=== PATIENT | male | born 1965 | race Caucasian/White ===

== ENCOUNTER 2021-07-16 10:39 | Emergency (ER) | payer MEDICAID ==
[~2021-07-16] VITALS: Ht 177.8 cm; Wt 111.4 kg
[2021-07-16] MEDS ORDERED: traMADol 50 MG TABLET PO ONE (11:30)
--- NOTE | 2021-07-16 11:54 | RAD ---
XR KNEE 4 VIEWS WITH PATELLA_RT Clinical Indication: Reason: fall last night / Spl. Instructions: / History: Comparison: None. Findings: No acute fracture is seen. There is moderate arthropathy. There is probably trace joint effusion. The re is mild prepatellar soft tissue swelling. The patella is in anatomic position. No patellar tilt or subluxation is seen. Mild arterial calcifications. IMPRESSION: 1. No acute fracture. 2. Soft tissue injury. Electronically signed by: Tor Valadez MD (07/16/2021 11:52 AM) [id number]
--- NOTE | 2021-07-16 12:12 | PHYS DOC ---
Past Medical History Past Medical History: Arthritis, Gallstones Additional Past Medical Histor: neuropathy, torn retina left eye Past Surgical History: Knee Replacement Additional Past Surgical Histo: left 4th toe tendon removal General Adult EDM: Chief Complaint: KNEE INJURY HPI: HPI: Patient is a 55 year old male who presents with right knee pain status post fall last evening. Patient normally ambulates with a cane after his left knee was replaced. He states that yesterday he experienced a mechanical fall onto his right knee, and experienced significant pain when he was attempting to get up. Patient states at that time, he "twisted" his knee. He states that while he is supposed to use his cane, it's usually "thrown on the corner somewhere." Patient denies any other injury or other complaints at this time. Review of Systems: Review of Systems: ROS negative or noncontributory except as mentioned in HPI. Heart Score: C/O Chest Pain: No Current Medications: Current Medications Medications (Trade) Dose Ordered Sig/Norma Start Time Stop Time Status Last Admin Dose Admin Tramadol HCl (Ultram) 50 mg 1X ONCE 07/16/21 11:30 07/16/21 11:35 DC 07/16/21 11:51 50 MG Allergies: Allergies: Allergies Coded Allergies Type Severity Reaction Last Updated Verified No Known Drug Allergies 07/16/21 No Physical Exam: PE: Constitutional: Well developed, well nourished, no acute distress, non-toxic appearance. HENT: Normocephalic, atraumatic, bilateral external ears normal, nose normal. Eyes: EOMI, conjunctiva normal, no discharge. Neck: Normal range of motion, no stridor. Skin: Abrasion over patellar region of right knee without laceration, stasis d ermatitis rash noted over bilateral distal lower extremities. Skin otherwise warm, dry, no erythema, no rash. Extremities: Right knee tender to palpation over the medial aspect and over the patella, no ballottement, active range of motion intact, PT pulses 2+ bilaterally. Extremities otherwise nontender, no cyanosis, no clubbing, ROM intact. Neurologic: Alert and oriented x4, no focal deficits noted. Current Patient Data: Vital Signs: Vital Signs Date Time Temp Pulse Resp B/P (MAP) Pulse Ox O2 Delivery O2 Flow Rate FiO2 07/16/21 12:18 78 18 196/112 (140) 98 Room Air 07/16/21 11:51 18 98 Room Air 07/16/21 11:06 98.1 80 20 238/111 (153) 99 Room Air 98.1 Radiology/Procedures: Radiology/Procedures: PROCEDURE: KNEE RIGHT 4V XR KNEE 4 VIEWS WITH PATELLA_RT Clinical Indication: Reason: fall last night / Spl. Instructions: / History: Comparison: None. Findings: No acute fracture is seen. There is moderate arthropathy. There is probably trace joint effusion. There is mild prepatellar soft tissue swelling. The patella is in anatomic position. No patellar tilt or subluxation is seen. Mild arterial calcifications. IMPRESSION: 1. No acute fracture. 2. Soft tissue injury. Electronically signed by: Tor Valadez MD (07/16/2021 11:52 AM) [id number] Course & Med Decision Making: Course & Med Decision Making Pertinent Labs and Imaging studies reviewed. (See chart for details) Patient is a 55-year-old male with known history of bilateral arthritis of the knees. Last night, he states he fell onto his right knee and experienced significant pain while getting up. Plain films will be obtained. Patient provided with p.o. pain medication. Initially, exam was difficult secondary to pain. Reexamined patient after tramadol administration. See above for physical exam. No fracture or dislocation seen on plain films. Patient made aware of findings. He states he does not currently have contact with an orthopedist. Patient will be provided for contact information for further evaluation and management for possible connective tissue injury of the knee. Return precautions provided. Patient understands and is agreeable to discharge plan. Thierry Disclaimer: Thierry Disclaimer: This electronic medical record was generated, in whole or in part, using a voice recognition dictation system. Departure Departure Impression: Primary Impression: Contusion of right knee, initial encounter Additional Impressions: Degenerative arthritis of knee, bilateral Qualified Codes: M17.0 - Bilateral primary osteoarthritis of knee Benign essential hypertension Disposition: 01 HOME / SELF CARE / HOMELESS Condition: IMPROVED Referrals: NO PCP (PCP) GISELLE GALLEGOS MD Patient Instructions: Arthritis, Nonspecific, [id number], Managing Your High Blood Pressure, RICE - Routine Care for Injuries, [id number] Additional Instructions: EMERGENCY DEPARTMENT GENERAL DISCHARGE INSTRUCTIONS Thank you for coming to [facility] Emergency Department (ED) today and trusting us with you care. We trust that you had a positive experience in our Emergency Department. If you wish to speak to the department management, you may call the director at . YOUR FOLLOW UP INSTRUCTIONS ARE FOLLOWS: 1. Follow up with your primary care doctor. If you do not have a primary doctor, please ask for a resource list of physicians or clinics that may be able to assist you with follow up care. You should keep a blood pressure log to take with you to your next appointment. 2. The emergency provider has interpreted your imaging studies, if any were ordered. The radiology web analytics specialist also reviewed them. If there is a change in the findings, you will be notified in 48 hours when at all possible. 3. If a lab test or culture has been done, your results will be reviewed and you will be notified if you need a change in treatment. 4. Follow instructions verbalized to you and refer to the printouts if needed. ADDITIONAL INSTRUCTIONS AND INFORMATION: 1. Your care today has been supervised by a physician who is specially trained in emergency care. Many problems require more than one evaluation for a complete diagnosis and treatment. We recommend that you schedule your follow up appointment as recommended to ensure complete treatment of you illness or inju ry. If you are unable to obtain follow up care and continue to have a problem, or if your condition worsens, we recommend that you return to the ED. 2. We are not able to safely determine your condition over the phone nor are we able to give sound medical advice over the phone. For these safety reasons, if you call for medical advice we will ask you to come to the ED for further evaluation. 3. If you have any questions regarding these discharge instructions please call the ED at . SAFETY INFORMATION: In the interest of safety, wellness, and injury prevention; we encourage you to wear your seat belt, if you smoke; quite smoking, and we encourage family to use a protective helmet for bicycling and other sporting events that present an increased risk for head injury. IF YOUR SYMPTOMS WORSEN OR NEW SYMPTOMS DEVELOP, OR YOU HAVE CONCERNS ABOUT YOUR CONDITION; OR IF YOUR CONDITION WORSENS WHILE YOU ARE WAITING FOR YOUR FOLLOW UP APPOINTMENT; EITHER CONTACT YOUR PRIMARY CARE DOCTOR, THE PHYSICIAN WHOSE NAME AND NUMBER YOU WERE GIVEN, OR RETURN TO THE ED IMMEDIATELY. Scripts Tramadol Hcl (TRAMADOL HCL) 50 Mg Tablet 50 MG PO Q6HRS PRN for PAIN, #12 TAB Prov: DIONE IRELAND 07/16/21 DIONE IRELAND Jul 16, 2021 12:12
[2021-07-16 12:18] VITALS: BP 196/112
[2021-07-16] MEDS ORDERED: TRAM50TA PO (12:33)
== END 2021-07-16 12:51 | disposition home or self-care (01) ==
LOC: ER 10:39
DX: S80.01XA Contusion of right knee, initial encounter (principal); I10 Essential (primary) hypertension; M17.0 Bilateral primary osteoarthritis of knee; W18.39XA Other fall on same level, initial encounter; Y93.89 Activity, other specified; Y92.89 Other specified places as the place of occurrence of the external cause; Y99.8 Other external cause status
CPT/HCPCS: 73564; 99283

== ENCOUNTER 2021-08-02 11:35 | Inpatient (IN) | payer MEDICAID ==
[~2021-08-02] VITALS: Ht 180.3 cm; Wt 117.1 kg
[~2021-08-02 11:35] MED LIST: TRAM50TA PO
[2021-08-02] MEDS ORDERED: IV NORMAL SALINE 1000ML BAG 1,000 ML IV ONE ×3 (11:45→14:15)
[2021-08-02 11:59] LABS: BASO # 0.1 x10^3/uL (0.0-0.2); BASO % 1 % (0-3); EOS # 0.3 x10^3/uL (0.0-0.7); EOS % 3 % (0-3); HEMOGLOBIN 13.3 g/dL (13.0-17.5); LYMPH # 0.9 x10^3/uL (1.0-4.8); LYMPH % 10 % (24-48); MEAN CORPUSCULAR HEMOGLOBIN 31 pg (25-35); MEAN CORPUSCULAR HGB CONC 34 g/dL (31-37); MEAN CORPUSCULAR VOLUME 92 fL (79-100); MONO # 0.4 x10^3/uL (0.0-1.1); MONO % 5 % (0-9); NEUT # 7.3 x10^3/uL (1.8-7.7); NEUT % 81 % (31-73); PLATELET COUNT 240 x10^3/uL (140-400); RED BLOOD COUNT 4.25 x10^6/uL (4.30-5.70); RED CELL DISTRIBUTION WIDTH 13.9 % (11.5-14.5); WHITE BLOOD COUNT 8.9 x10^3/uL (4.0-11.0)
[2021-08-02] MEDS ORDERED: IOHEXOL 300 MG/ML 100ML VIAL. IV ONE (12:00)
[2021-08-02 12:14] LABS: ALBUMIN 3.8 g/dL (3.4-5.0); ALBUMIN/GLOBULIN RATIO 1.1 (1.0-1.7); CALCIUM 8.9 mg/dL (8.5-10.1); CREATININE 1.3 mg/dL (0.7-1.3); GFR 57.3; PHOSPHORUS 3.2 mg/dL (2.6-4.7); POTASSIUM 5.4 mmol/L (3.5-5.1); TOTAL PROTEIN 7.4 g/dL (6.4-8.2)
[2021-08-02] MEDS ORDERED: fentaNYL PF VIAL 100 MCG/2 ML VIAL IVP ONE (12:15)
[2021-08-02] MEDS ORDERED: ONDANSETRON PF 4 MG/2 ML VIAL. IVP ONE (12:15)
[2021-08-02] MEDS ORDERED: CONTRAST GIVEN. MC PRN (12:15)
--- NOTE | 2021-08-02 13:16 | RAD ---
EXAM: CT Abdomen and Pelvis with IV contrast CLINICAL HISTORY: Reason: RLQ pain / Spl. Instructions: OMNI 300 INJ. 60 MLS / History: . COMPARISON: none TECHNIQUE: Helical CT of the abdomen and pelvis was performed following the administration of intrave nous contrast. Contrast Axial, coronal and sagittal reformatted images were generated. PQRS compliance statement - One or more of the following individualized dose reduction techniques wer e utilized for this study: 1. Automated exposure control 2. Adjustment of the mA and/or kV according to patient size 3. Use of iterative reconstruction technique FINDINGS: The evaluation of the solid organs is limited due to lack of IV contrast. The evaluation of bowel is limited due to lack of oral contrast. Lower Chest: Visualized lung bases are clear. Significant coronary artery atherosclerotic disease. Heart size is w ithin normal limits. Trace peripheral effusion. Abdomen and Pelvis: Liver is normal in size and attenuation without focal hepatic lesion. There appears to be vicarious e xcretion of contrast within the gallbladder. No significant biliary ductal dilation. The spleen and p ancreas are unremarkable. Right adrenal gland is normal. 1.6 cm hypoattenuating nodule in the left ad renal gland. Hypoattenuating 1.4 cm nodule in the interpolar region of the right kidney with attenuat ion greater than that of simple fluid. Additional subcentimeter hypoattenuating lesions in bilateral kidneys are too small to characterize. No obstructing nephro or ureterolithiasis. The right kidney ap pears slightly edematous with mild pelvocaliectasis. There is minimal asymmetric perinephric on the r ight. Stomach is unremarkable. No evidence of bowel obstruction or focal inflammation. Appendix is normal. Mild to moderate colorectal stool burden. Aortobiiliac atherosclerotic disease. No pathologically enlarged abdominal or pelvic adenopathy. No f ree intra-abdominal air or free fluid. Urinary bladder is mildly distended without focal inflammation. Prostate is unremarkable. Anterior abdominal wall is normal. Multilevel degenerative changes of the thoracolumbar spine no acut e or suspicious osseous abnormalities. IMPRESSION: 1. Findings suggestive of possible ascending urinary tract infection versus pyelonephritis involving the right kidney. No evidence of obstructing urolithiasis. Correlation with urinalysis is recommended . 2. Variable sized hypoattenuating renal lesions favoring mildly complicated cysts. Correlation with p rior imaging if available to assess stability. If none is available then follow-up nonemergent renal ultrasound in 3-6 months. 3. 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 Correlation with prior imaging to assess stability is recomm ended. If no prior imaging is available then follow-up with nonemergent CT or MRI with adrenal gland protocol. 4. Other chronic/incidental findings, as above. Electronically signed by: Bruno Meza DO (08/02/2021 1:14 PM) [facility]
[2021-08-02 13:48] LABS: BACTERIA,URINE MODERATE /HPF (0-FEW); WBC,URINE 20-40 /HPF (0-4)
[2021-08-02 13:49] LABS: YEAST,URINE PRESENT /HPF
[2021-08-02] MEDS ORDERED: cefTRIAXone IV Push 1 GM VIAL. IVP ONE (14:30)
[2021-08-02] MEDS ORDERED: INSULIN REGULAR 100 UNIT/ML 3ML VIAL. IV ONE (14:45)
[2021-08-02] MEDS ORDERED: MORPHINE SULFATE 4 MG/ML INJ. IV ONE (14:45)
--- NOTE | 2021-08-02 15:29 | ED.ADGEN ---
Past Medical History Past Medical History: Arthritis, Gallstones Additional Past Medical Histor: neuropathy, torn retina left eye Past Surgical History: Knee Replacement Additional Past Surgical Histo: left 4th toe tendon removal General Adult EDM: Chief Complaint: ABDOMINAL PAIN HPI: HPI: Patient is a 55 year old male coming in for right lower quadrant abdominal pain. Patient states the pain is been there for about a day. Also his blood sugars been running high. Patient states that he has a history of diabetes and takes Metformin, states his blood sugars usually run between 180 and 200. Denies a history of kidney stones in the past, denies any hematuria dysuria. Says the pain is in his right lower quadrant is always dull but intermittently sharp and radiates to his right flank. He said he had a subjective fever yesterday. Review of Systems: Review of Systems: All other systems within normal limits except for as noted in the HPI Current Medications: Current Medications Medications (Trade) Dose Ordered Sig/Norma Start Time Stop Time Status Last Admin Dose Admin Ceftriaxone Sodium (Rocephin) 2 gm 1X ONCE 08/02/21 14:30 08/02/21 14:31 DC 08/02/21 14:55 2 GM Fentanyl Citrate (Fentanyl 2ml Vial) 75 mcg 1X ONCE 08/02/21 12:15 08/02/21 12:16 DC 08/02/21 11:54 75 MCG Info (CONTRAST GIVEN -- Rx MONITORING) 1 each PRN DAILY PRN 08/02/21 12:15 08/04/21 12:14 Insulin Human Regular (HumuLIN R VIAL) 5 unit 1X ONCE 08/02/21 14:45 08/02/21 14:46 DC 08/02/21 14:55 5 UNIT Iohexol (Omnipaque 300 Mg/ml) 75 ml 1X ONCE 08/02/21 12:00 08/02/21 12:01 DC 08/02/21 12:40 75 ML Morphine Sulfate (Morphine Sulfate) 4 mg 1X ONCE 08/02/21 14:45 08/02/21 14:46 DC 08/02/21 14:53 4 MG Ondansetron HCl (Zofran) 4 mg 1X ONCE 08/02/21 12:15 08/02/21 12:16 DC 08/02/21 11:56 4 MG Sodium Chloride 1,000 ml @ 1,000 mls/hr 1X ONCE 08/02/21 14:15 08/02/21 15:14 DC Allergies: Allergies: Allergies Coded Allergies Type Severity Reaction Last Updated Verified No Known Drug Allergies 07/16/21 No Physical Exam: PE: Constitutional: Well developed, well nourished, no acute distress, non-toxic appearance. [] HENT: Normocephalic, atraumatic, bilateral external ears normal, nose normal. [] Eyes: PERRLA, conjunctiva normal, no discharge. [] Neck: No rigidity, supple, no stridor. [] Cardiovascular: Regular rate and rhythm, brisk cap refill [] Lungs & Thorax: Non labored symmetric respirations, no tachypnea or respiratory distress [] Abdomen: Soft, nondistended, positive Rovsing's, negative Butler's, right lower quadrant McBurney's point tenderness Skin: Warm, dry, no erythema, no rash. [] Back: Unremarkable, right CVA tenderness, spinal tenderness Extremities: No deformities, range of motion grossly intact, no lower extremity edema [] Neurologic: Alert and oriented X 3, no focal deficits noted. [] Psychologic: Affect normal, judgement normal, mood normal. [] Current Patient Data: Labs: Laboratory Tests Test 08/02/21 11:45 08/02/21 13:05 White Blood Count 8.9 x10^3/uL (4.0-11.0) Red Blood Count 4.25 x10^6/uL (4.30-5.70) L Hemoglobin 13.3 g/dL (13.0-17.5) Hematocrit 39.0 % (39.0-53.0) Mean Corpuscular Volume 92 fL (79-100) Mean Corpuscular Hemoglobin 31 pg (25-35) Mean Corpuscular Hemoglobin Concent 34 g/dL (31-37) Red Cell Distribution Width 13.9 % (11.5-14.5) Platelet Count 240 x10^3/uL (140-400) Neutrophils (%) (Auto) 81 % (31-73) H Lymphocytes (%) (Auto) 10 % (24-48) L Monocytes (%) (Auto) 5 % (0-9) Eosinophils (%) (Auto) 3 % (0-3) Basophils (%) (Auto) 1 % (0-3) Neutrophils # (Auto) 7.3 x10^3/uL (1.8-7.7) Lymphocytes # (Auto) 0.9 x10^3/uL (1.0-4.8) L Monocytes # (Auto) 0.4 x10^3/uL (0.0-1.1) Eosinophils # (Auto) 0.3 x10^3/uL (0.0-0.7) Basophils # (Auto) 0.1 x10^3/uL (0.0-0.2) Sodium Level 129 mmol/L (136-145) L Potassium Level 5.4 mmol/L (3.5-5.1) H Chloride Level 94 mmol/L (98-107) L Carbon Dioxide Level 28 mmol/L (21-32) Anion Gap 7 (6-14) Blood Urea Nitrogen 24 mg/dL (8-26) Creatinine 1.3 mg/dL (0.7-1.3) Estimated GFR (Cockcroft-Gault) 57.3 BUN/Creatinine Ratio 18 (6-20) Glucose Level 725 mg/dL (70-99) *H Calcium Level 8.9 mg/dL (8.5-10.1) Phosphorus Level 3.2 mg/dL (2.6-4.7) Magnesium Level 2.0 mg/dL (1.8-2.4) Total Bilirubin 1.0 mg/dL (0.2-1.0) Aspartate Amino Transferase (AST) 8 U/L (15-37) L Alanine Aminotransferase (ALT) 23 U/L (16-63) Alkaline Phosphatase 103 U/L (46-116) Total Protein 7.4 g/dL (6.4-8.2) Albumin 3.8 g/dL (3.4-5.0) Albumin/Globulin Ratio 1.1 (1.0-1.7) Lipase 130 U/L (73-393) Urine Collection Type Unknown Urine Color (Auto) Light yellow Urine Turbidity Clear Urine pH (Auto) 7.0 (<5.0-8.0) Urine Specific [place] 1.027 (1.000-1.030) Urine Protein (Auto) 50 mg/dL (Negative) Urine Glucose (Auto)(UA) >=1000 mg/dL (Negative) Urine Ketones (Auto) Negative mg/dL (Negative) Urine Blood (Auto) Trace (Negative) Urine Nitrite Negative (Negative) Urine Bilirubin (Auto) Negative (Negative) Urine Urobilinogen (Auto) Normal mg/dL (Normal) Urine Leukocyte Esterase (Auto) Small (Negative) Urine RBC 1-2 /HPF (0-2) Urine WBC 20-40 /HPF (0-4) Urine Squamous Epithelial Cells Few /LPF Urine Bacteria Moderate /HPF (0-FEW) Urine Yeast Present /HPF Laboratory Tests 08/02/21 11:45 Laboratory Tests 08/02/21 11:45 Vital Signs: Vital Signs Date Time Temp Pulse Resp B/P (MAP) Pulse Ox O2 Delivery O2 Flow Rate FiO2 08/02/21 14:53 18 99 Room Air 08/02/21 11:35 98.2 82 245/116 (159) 98.2 EKG: EKG: [] Heart Score: C/O Chest Pain: No Risk Factors: Risk Factors: DM, Current or recent (<one month) smoker, HTN, HLP, family history of CAD, obesity. Risk Scores: Score 0 - 3: 2.5% MACE over next 6 weeks - Discharge Home Score 4 - 6: 20.3% MACE over next 6 weeks - Admit for Clinical Observation Score 7 - 10: 72.7% MACE over next 6 weeks - Early Invasive Strategies Radiology/Procedures: Radiology/Procedures: [facility] [address] [place] [address] IMAGING REPORT Signed PATIENT: Hua ADAME ACCOUNT: [id number] : 1965 LOCATION: ER AGE: 55 SEX: M EXAM STATUS: PRE ER ORD. PHYSICIAN: PALAK FERNANDEZ MD REASON: RLQ pain PROCEDURE: CT ABD PELV W/ IV CONTRST ONLY EXAM: CT Abdomen and Pelvis with IV contrast CLINICAL HISTORY: Reason: RLQ pain / Spl. Instructions: OMNI 300 INJ. 60 MLS / History: . COMPARISON: none TECHNIQUE: Helical CT of the abdomen and pelvis was performed following the administration of intravenous contrast. Contrast Axial, coronal and sagittal reformatted images were generated. PQRS compliance statement - One or more of the following individualized dose reduction techniques were utilized for this study: 1. Automated exposure control 2. Adjustment of the mA and/or kV according to patient size 3. Use of iterative reconstruction technique FINDINGS: The evaluation of the solid organs is limited due to lack of IV contrast. The evaluation of bowel is limited due to lack of oral contrast. Lower Chest: Visualized lung bases are clear. Significant coronary artery atherosclerotic disease. Heart size is within normal limits. Trace peripheral effusion. Abdomen and Pelvis: Liver is normal in size and attenuation without focal hepatic lesion. There appears to be vicarious excretion of contrast within the gallbladder. No significant biliary ductal dilation. The spleen and pancreas are unremarkable. Right adrenal gland is normal. 1.6 cm hypoattenuating nodule in the left adrenal gland. Hypoattenuating 1.4 cm nodule in the interpolar region of the right kidney with attenuation greater than that of simple fluid. Additional subcentimeter hypoattenuating lesions in bilateral kidneys are too small to characterize. No obstructing nephro or ureterolithiasis. The right kidney appears slightly edematous with mild pelvocaliectasis. There is minimal asymmetric perinephric on the right. Stomach is unremarkable. No evidence of bowel obstruction or focal inflammation. Appendix is normal. Mild to moderate colorectal stool burden. Aortobiiliac atherosclerotic disease. No pathologically enlarged abdominal or pelvic adenopathy. No free intra-abdominal air or free fluid. Urinary bladder is mildly distended without focal inflammation. Prostate is unremarkable. Anterior abdominal wall is normal. Multilevel degenerative changes of the thoracolumbar spine no acute or suspicious osseous abnormalities. IMPRESSION: 1. Findings suggestive of possible ascending urinary tract infection versus py elonephritis involving the right kidney. No evidence of obstructing urolithiasis. Correlation with urinalysis is recommended. 2. Variable sized hypoattenuating renal lesions favoring mildly complicated cysts. Correlation with prior imaging if available to assess stability. If none is available then follow-up nonemergent renal ultrasound in 3-6 months. 3. 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 Correlation with prior imaging to assess stability is recommended. If no prior imaging is available then follow-up with nonemergent CT or MRI with adrenal gland protocol. 4. Other chronic/incidental findings, as above. Electronically signed by: Patricio Meza DO (08/02/2021 1:14 PM) [facility] DICTATED and SIGNED BY: PATRICIO MEZA DO DATE: 08/02/21 1300 [] Course & Med Decision Making: Course & Med Decision Making Pertinent Labs and Imaging studies reviewed. (See chart for details) [] Dragon Disclaimer: Dragon Disclaimer: This electronic medical record was generated, in whole or in part, using a voice recognition dictation system. Departure Departure Impression: Primary Impression: Hyperglycemia due to type 2 diabetes mellitus Additional Impression: Pyelonephritis of right kidney Disposition: ADMITTED INPATIENT Admitting Physician: HIMS Condition: STABLE Referrals: NO PCP (PCP) Problem Qualifiers PALAK FERNANDEZ MD Aug 02, 2021 15:29
[2021-08-02] MEDS ORDERED: hydrALAZINE 20 MG/ML VIAL. IVP PRN (16:30)
[2021-08-02] MEDS ORDERED: fentaNYL PF VIAL 100 MCG/2 ML VIAL IVP PRN (16:30)
[2021-08-02] MEDS: INSULIN LISPRO 300 UNITS/3 ML VIAL. SQ SCH ×2 (16:30→17:00)
[2021-08-02] MEDS ORDERED: IV DEXTROSE 5% 250 ML BAG. IV PRN (16:30)
[2021-08-02] MEDS ORDERED: ONDANSETRON PF 4 MG/2 ML VIAL. IVP PRN (16:30)
[2021-08-02] MEDS ORDERED: DEXTROSE 50% 25 GM / 50ML DISP.SYRIN. IV PRN (16:30)
--- NOTE | 2021-08-02 16:40 | PDOC1 ---
History and Physical Date of Admission Date of Admission DATE: 08/02/21 TIME: 16:24 Identification/Chief Complaint Chief Complaint Abdominal pain Source Source: Patient History of Present Illness History of Present Illness Mr Carter is a 55 year old male w/ PMHx DM2, arthritis, A-Fib, HLD, HTN, neuropathy who comes to ED from [facility] c/o right lower back and right lower quadrant abdominal pain. He has had pain for the last day with polyuria and polydipsia. Denies a history of kidney stones in the past, denies any hematuria dysuria. Says the pain is in his right lower quadrant is always dull but intermittently sharp and radiates to his right flank. He said he had a subjective fever yesterday. He does note he had a right ureteral surgery as a child and he and his father have both had urinary tract infections occasionally over the lives. He does note his blood sugar and blood pressure have been running high over the last day as well. When he used to take insulin his blood sugars usually run between 180 and 200, used to take 35units lantus twice daily. He notes on outpatient follow-up he was told to stop taking insulin after his A1c returned at 11 and was placed on Metformin and Actos a few weeks ago. He notes he is in the process of trying to move to [place]. He used to receive most of his health care in [place] but has been traveling around the country recently. He moved to [place] to be with a woman and has been depressed after the break-up and is getting help with the [facility] [place] while he is working on transitioning to [place] to live with his cousin In ED blood pressure to be 203/110. WBC 8.9, Hb 13.3, platelets 240, NA 129, K5.4, BUN 24, CR 1.3, glucose 725 no anion gap, LFTs within normal laboratory limits, magnesium 2, phosphorus 3.2, albumin 3.8, lipase 130, urinalysis with glucosuria and leukocyte esterase positive. CT abdomen pelvis with concern for pyelonephritis right kidney no nephrolithiasis. Multiple renal lesions likely cysts and left adrenal nodule. Given IVF, antibiotics, insulin and admitted for further care. Past Medical History Cardiovascular: AFIB, HTN, Hyperlipidemia Endocrine: Diabetes Past Surgical History Past Surgical History Left Knee Replacement, right uretal surgery as a child, left 4th toe tendon removal Social History Smoke: No ALCOHOL: none Drugs: None Current Problem List Problem List Problems Medical Problems: (1) Hyperglycemia due to type 2 diabetes mellitus Status: Acute (2) Pyelonephritis of right kidney Status: Acute Current Medications Current Medications Current Medications Fentanyl Citrate (Fentanyl 2ml Vial) 75 mcg 1X ONCE IVP Last administered on 08/02/21at 11:54; Start 08/02/21 at 12:15; Stop 08/02/21 at 12:16; Status DC Sodium Chloride 1,000 ml @ 1,000 mls/hr 1X ONCE IV Last administered on 08/02/21at 11:45; Start 08/02/21 at 11:45; Stop 08/02/21 at 12:44; Status DC Ondansetron HCl (Zofran) 4 mg 1X ONCE IVP Last administered on 08/02/21at 11:56; Start 08/02/21 at 12:15; Stop 08/02/21 at 12:16; Status DC Iohexol (Omnipaque 300 Mg/ml) 75 ml 1X ONCE IV Last administered on 08/02/21at 12:40; Start 08/02/21 at 12:00; Stop 08/02/21 at 12:01; Status DC Info (CONTRAST GIVEN -- Rx MONITORING) 1 each PRN DAILY PRN MC SEE COMMENTS; Start 08/02/21 at 12:15; Stop 08/04/21 at 12:14 Ceftriaxone Sodium (Rocephin) 2 gm 1X ONCE IVP Last administered on 08/02/21at 14:55; Start 08/02/21 at 14:30; Stop 08/02/21 at 14:31; Status DC Sodium Chloride 1,000 ml @ 1,000 mls/hr 1X ONCE IV Last administered on 08/02/21at 14:52; Start 08/02/21 at 14:15; Stop 08/02/21 at 15:14; Status DC Sodium Chloride 1,000 ml @ 1,000 mls/hr 1X ONCE IV ; Start 08/02/21 at 14:15; Stop 08/02/21 at 15:14; Status DC Morphine Sulfate (Morphine Sulfate) 4 mg 1X ONCE IV Last administered on 08/02/21at 14:53; Start 08/02/21 at 14:45; Stop 08/02/21 at 14:46; Status DC Insulin Human Regular (HumuLIN R VIAL) 5 unit 1X ONCE IV Last administered on 08/02/21at 14:55; Start 08/02/21 at 14:45; Stop 08/02/21 at 14:46; Status DC Active Scripts Active Tramadol Hcl 50 Mg Tablet 50 Mg PO Q6HRS PRN Allergies Allergies: Coded Allergies: No Known Drug Allergies (Unverified , 07/16/21) Physical Exam General: Alert, Oriented X3, Cooperative, moderate distress HEENT: Atraumatic, PERRLA, EOMI, Mucous membr. moist/pink Lungs: Clear to auscultation, Normal air movement Heart: S1S2, RRR, no thrills, no rubs, no gallops, no murmurs Abdomen: Normal bowel sounds, Soft, No hepatosplenomegaly, No masses, Other (Right flank tenderness and suprapubic tenderness) Rectal Exam: not examined Extremities: Other (4 by centimeter lipoma mid back slightly tender) Skin: No rashes, No breakdown, No significant lesion Neuro: Normal gait, Normal speech, Strength at 5/5 X4 ext, Normal tone, Cranial nerves 3-12 NL, Reflexes 2+ Psych/Mental Status: Mental status NL, Mood NL Vitals Vitals Vital Signs Date Time Temp Pulse Resp B/P (MAP) Pulse Ox O2 Delivery O2 Flow Rate FiO2 08/02/21 14:53 18 99 Room Air 08/02/21 11:35 98.2 82 245/116 (159) 98.2 Labs Labs Laboratory Tests Test 08/02/21 11:45 08/02/21 13:05 White Blood Count 8.9 x10^3/uL (4.0-11.0) Red Blood Count 4.25 x10^6/uL (4.30-5.70) Hemoglobin 13.3 g/dL (13.0-17.5) Hematocrit 39.0 % (39.0-53.0) Mean Corpuscular Volume 92 fL (79-100) Mean Corpuscular Hemoglobin 31 pg (25-35) Mean Corpuscular Hemoglobin Concent 34 g/dL (31-37) Red Cell Distribution Width 13.9 % (11.5-14.5) Platelet Count 240 x10^3/uL (140-400) Neutrophils (%) (Auto) 81 % (31-73) Lymphocytes (%) (Auto) 10 % (24-48) Monocytes (%) (Auto) 5 % (0-9) Eosinophils (%) (Auto) 3 % (0-3) Basophils (%) (Auto) 1 % (0-3) Neutrophils # (Auto) 7.3 x10^3/uL (1.8-7.7) Lymphocytes # (Auto) 0.9 x10^3/uL (1.0-4.8) Monocytes # (Auto) 0.4 x10^3/uL (0.0-1.1) Eosinophils # (Auto) 0.3 x10^3/uL (0.0-0.7) Basophils # (Auto) 0.1 x10^3/uL (0.0-0.2) Sodium Level 129 mmol/L (136-145) Potassium Level 5.4 mmol/L (3.5-5.1) Chloride Level 94 mmol/L (98-107) Carbon Dioxide Level 28 mmol/L (21-32) Anion Gap 7 (6-14) Blood Urea Nitrogen 24 mg/dL (8-26) Creatinine 1.3 mg/dL (0.7-1.3) Estimated GFR (Cockcroft-Gault) 57.3 BUN/Creatinine Ratio 18 (6-20) Glucose Level 725 mg/dL (70-99) Calcium Level 8.9 mg/dL (8.5-10.1) Phosphorus Level 3.2 mg/dL (2.6-4.7) Magnesium Level 2.0 mg/dL (1.8-2.4) Total Bilirubin 1.0 mg/dL (0.2-1.0) Aspartate Amino Transf (AST/SGOT) 8 U/L (15-37) Alanine Aminotransferase (ALT/SGPT) 23 U/L (16-63) Alkaline Phosphatase 103 U/L (46-116) Total Protein 7.4 g/dL (6.4-8.2) Albumin 3.8 g/dL (3.4-5.0) Albumin/Globulin Ratio 1.1 (1.0-1.7) Lipase 130 U/L (73-393) Urine Collection Type Unknown Urine Color (Auto) Light yellow Urine Turbidity Clear Urine pH (Auto) 7.0 (<5.0-8.0) Urine Specific [place] 1.027 (1.000-1.030) Urine Protein (Auto) 50 mg/dL (Negative) Urine Glucose (Auto)(UA) >=1000 mg/dL (Negative) Urine Ketones (Auto) Negative mg/dL (Negative) Urine Blood (Auto) Trace (Negative) Urine Nitrite Negative (Negative) Urine Bilirubin (Auto) Negative (Negative) Urine Urobilinogen (Auto) Normal mg/dL (Normal) Urine Leukocyte Esterase (Auto) Small (Negative) Urine RBC 1-2 /HPF (0-2) Urine WBC 20-40 /HPF (0-4) Urine Squamous Epithelial Cells Few /LPF Urine Bacteria Moderate /HPF (0-FEW) Urine Yeast Present /HPF Laboratory Tests Test 08/02/21 11:45 08/02/21 13:05 White Blood Count 8.9 x10^3/uL (4.0-11.0) Red Blood Count 4.25 x10^6/uL (4.30-5.70) Hemoglobin 13.3 g/dL (13.0-17.5) Hematocrit 39.0 % (39.0-53.0) Mean Corpuscular Volume 92 fL (79-100) Mean Corpuscular Hemoglobin 31 pg (25-35) Mean Corpuscular Hemoglobin Concent 34 g/dL (31-37) Red Cell Distribution Width 13.9 % (11.5-14.5) Platelet Count 240 x10^3/uL (140-400) Neutrophils (%) (Auto) 81 % (31-73) Lymphocytes (%) (Auto) 10 % (24-48) Monocytes (%) (Auto) 5 % (0-9) Eosinophils (%) (Auto) 3 % (0-3) Basophils (%) (Auto) 1 % (0-3) Neutrophils # (Auto) 7.3 x10^3/uL (1.8-7.7) Lymphocytes # (Auto) 0.9 x10^3/uL (1.0-4.8) Monocytes # (Auto) 0.4 x10^3/uL (0.0-1.1) Eosinophils # (Auto) 0.3 x10^3/uL (0.0-0.7) Basophils # (Auto) 0.1 x10^3/uL (0.0-0.2) Sodium Level 129 mmol/L (136-145) Potassium Level 5.4 mmol/L (3.5-5.1) Chloride Level 94 mmol/L (98-107) Carbon Dioxide Level 28 mmol/L (21-32) Anion Gap 7 (6-14) Blood Urea Nitrogen 24 mg/dL (8-26) Creatinine 1.3 mg/dL (0.7-1.3) Estimated GFR (Cockcroft-Gault) 57.3 BUN/Creatinine Ratio 18 (6-20) Glucose Level 725 mg/dL (70-99) Calcium Level 8.9 mg/dL (8.5-10.1) Phosphorus Level 3.2 mg/dL (2.6-4.7) Magnesium Level 2.0 mg/dL (1.8-2.4) Total Bilirubin 1.0 mg/dL (0.2-1.0) Aspartate Amino Transf (AST/SGOT) 8 U/L (15-37) Alanine Aminotransferase (ALT/SGPT) 23 U/L (16-63) Alkaline Phosphatase 103 U/L (46-116) Total Protein 7.4 g/dL (6.4-8.2) Albumin 3.8 g/dL (3.4-5.0) Albumin/Globulin Ratio 1.1 (1.0-1.7) Lipase 130 U/L (73-393) Urine Collection Type Unknown Urine Color (Auto) Light yellow Urine Turbidity Clear Urine pH (Auto) 7.0 (<5.0-8.0) Urine Specific [place] 1.027 (1.000-1.030) Urine Protein (Auto) 50 mg/dL (Negative) Urine Glucose (Auto)(UA) >=1000 mg/dL (Negative) Urine Ketones (Auto) Negative mg/dL (Negative) Urine Blood (Auto) Trace (Negative) Urine Nitrite Negative (Negative) Urine Bilirubin (Auto) Negative (Negative) Urine Urobilinogen (Auto) Normal mg/dL (Normal) Urine Leukocyte Esterase (Auto) Small (Negative) Urine RBC 1-2 /HPF (0-2) Urine WBC 20-40 /HPF (0-4) Urine Squamous Epithelial Cells Few /LPF Urine Bacteria Moderate /HPF (0-FEW) Urine Yeast Present /HPF Images Images CT Abdomen and Pelvis with IV contrast CLINICAL HISTORY: Reason: RLQ pain / Spl. Instructions: OMNI 300 INJ. 60 MLS / History: . COMPARISON: none TECHNIQUE: Helical CT of the abdomen and pelvis was performed following the administration of intravenous contrast. Contrast Axial, coronal and sagittal reformatted images were generated. PQRS compliance statement - One or more of the following individualized dose reduction techniques were utilized for this study: 1. Automated exposure control 2. Adjustment of the mA and/or kV according to patient size 3. Use of iterative reconstruction technique FINDINGS: The evaluation of the solid organs is limited due to lack of IV contrast. The evaluation of bowel is limited due to lack of oral contrast. Lower Chest: Visualized lung bases are clear. Significant coronary artery atherosclerotic disease. Heart size is within normal limits. Trace peripheral effusion. Abdomen and Pelvis: Liver is normal in size and attenuation without focal hepatic lesion. There appears to be vicarious excretion of contrast within the gallbladder. No significant biliary ductal dilation. The spleen and pancreas are unremarkable. Right adrenal gland is normal. 1.6 cm hypoattenuating nodule in the left adrenal gland. Hypoattenuating 1.4 cm nodule in the interpolar region of the right kidney with attenuation greater than that of simple fluid. Additional subcentimeter hypoattenuating lesions in bilateral kidneys are too small to characterize. No obstructing nephro or ureterolithiasis. The right kidney appears slightly edematous with mild pelvocaliectasis. There is minimal asymmetric perinephric on the right. Stomach is unremarkable. No evidence of bowel obstruction or focal inflammation. Appendix is normal. Mild to moderate colorectal stool burden. Aortobiiliac atherosclerotic disease. No pathologically enlarged abdominal or pelvic adenopathy. No free intra-abdominal air or free fluid. Urinary bladder is mildly distended without focal inflammation. Prostate is unremarkable. Anterior abdominal wall is normal. Multilevel degenerative changes of the thoracolumbar spine no acute or suspicious osseous abnormalities. IMPRESSION: 1. Findings suggestive of possible ascending urinary tract infection versus pyelonephritis involving the right kidney. No evidence of obstructing urolithiasis. Correlation with urinalysis is recommended. 2. Variable sized hypoattenuating renal lesions favoring mildly complicated cysts. Correlation with prior imaging if available to assess stability. If none is available then follow-up nonemergent renal ultrasound in 3-6 months. 3. 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 Correlation with prior imaging to assess stability is recommended. If no prior imaging is available then follow-up with nonemergent CT or MRI with adrenal gland protocol. 4. Other chronic/incidental findings, as above. VTE Prophylaxis Ordered VTE Prophylaxis Devices: No VTE Pharmacological Prophylaxi: Yes Assessment/Plan Assessment/Plan Right pyelonephritis - etiology of abdominal pain. rocephin IV, fluids, flomax HHNKS - hyperglycemic, non-ketotic, will give aggressive IVF and insulin Hyponatremia - due to hyperglycemia, will trend Hypokalemia - due to hyperglycemia, will correct with insulin and fluids RAISA - vasomotor nephropathy from hyperglycemia, will hydrate, monitor UOP DM2 - will place back on insulin. He should be on triple therapy given his A1c greater than 8. Advised to use Humulin-N BID and Humulin R with meals outpatient H/o A-Fib - during left knee surgery previously, been on metoprolol BID since, no further episodes HLD - statin HTN urgency - will give prn hydralazine, cont home JOLEEN and toprol FEN - ADA diet PPX - lovenox FULL CODE DIspo - inpatient for above Justifications for Admission Other Justification JIMOB MERCEDES MD Aug 02, 2021 16:40
[2021-08-02] MEDS ORDERED: INSULIN LISPRO 300 UNITS/3 ML VIAL. SQ ONE (19:00)
[2021-08-02] MEDS ORDERED: PIOG15TA42 PO (19:41)
[2021-08-02] MEDS ORDERED: RIVA10TA PO (19:41)
[2021-08-02] MEDS ORDERED: PRAV20TA2 PO (19:41)
[2021-08-02] MEDS ORDERED: METF500T16 PO (19:41)
[2021-08-02 19:48] VITALS: BP 197/93
--- NOTE | 2021-08-02 20:51 | NUR ---
This RN verified with Dr. Mckeon by telephone that pt is M/S status.
[2021-08-02] MEDS: INSULIN GLARGINE SYRINGE. SQ SCH (21:10)
[2021-08-02] MEDS: TAMSULOSIN 0.4 MG CAP.ER.24H. PO SCH (21:25)
[2021-08-02] MEDS: METOPROLOL TART IMMED RELEASE 25 MG TABLET. PO SCH (21:25)
[2021-08-02] MEDS: traMADol 50 MG TABLET PO PRN (22:16)
[2021-08-02 23:39] VITALS: BP 123/59
[2021-08-03 03:32] VITALS: BP 124/70
[2021-08-03 07:00] VITALS: BP 167/85
[2021-08-03] MEDS: INSULIN LISPRO 300 UNITS/3 ML VIAL. SQ SCH ×6 (07:30→17:59)
[2021-08-03 08:03] LABS: CALCIUM 8.4 mg/dL (8.5-10.1); CREATININE 0.9 mg/dL (0.7-1.3); GFR 87.6; POTASSIUM 4.2 mmol/L (3.5-5.1)
[2021-08-03] MEDS: METOPROLOL TART IMMED RELEASE 25 MG TABLET. PO SCH ×2 (09:00→21:27)
[2021-08-03] MEDS: LISINOPRIL 20 MG TABLET PO SCH (09:00)
--- NOTE | 2021-08-03 09:44 | NUR ---
Nurse's note: This nurse was in the patient's room Addendum: 08/03/21 at 1207 by OLIVIA CABEZAS RN on morning rounds at 0855 when the patient complained that he felt numbness and weakness of his right arm. The symptoms started at 0300 but he did not tell the nursing staff. He also complains of headache initially at 5/10 which became worse at 10/10. The patient denies slurred speech, dizziness, loss of consciousness. Upon examination, the patient is awake, alert, oriented x 4, no facial asymmetry, conjugate gaze. Sensory testing revealed 50 % decreased sensation of right upper arm. Both lower extremities from knee down has less sensation bilaterally which is present before admission. The patient attributes the numbness of his lower extremities due to neuropathy from diabetes. Motor testing , right upper arm drift, strength 4/5 ; other extremities were 5/5. No noted aphasia or dysarthria; NIHSS 2. Activated code stroke. CT Head done and stat consult to neuro. Spoke to Dr. Yin; no acute intervention at this time. Will continue to monitor.
--- NOTE | 2021-08-03 09:55 | RAD ---
INDICATION: Reason: neuropathy findings / Spl. Instructions: / History: Weakness. COMPARISON: March 2021 TECHNIQUE: Axial CT images obtained through the head without intravenous contrast. One or more of the following individualized dose reduction techniques were utilized for this examinat ion: 1. Automated exposure control; 2. Adjustment of the mA and/or kV according to patient size; 3 . Use of iterative reconstruction technique. FINDINGS: No intracranial hemorrhage. No significant midline shift. Ventricles and sulci are globally prominent. Scattered foci of low attenuation within the white matter. IMPRESSION: * No acute intracranial hemorrhage. * Scattered regions of low attenuation within the white matter. Non-specific in nature but a common finding and frequently secondary to small vessel ischemic disease. * Report called to the patient's floor at 9:46 AM on date of exam. Electronically signed by: Eugene Hodge MD (08/03/2021 9:52 AM) [id number]
[2021-08-03] MEDS ORDERED: ATORVASTATIN CALCIUM 40 MG TABLET. PO ONE (10:00)
[2021-08-03] MEDS: cefTRIAXone IV Push 2 GM VIAL. IVP SCH (10:14)
[2021-08-03] MEDS: LINAGLIPTIN 5 MG TABLET PO SCH (10:14)
[2021-08-03] MEDS ORDERED: ASPIRIN 325 MG TABLET PO ONE (10:30)
[2021-08-03 11:00] VITALS: BP 164/76
--- NOTE | 2021-08-03 11:00 | NUR ---
Nurse's note: The patient complains of inability to void urine, last void was 1900 08/02. Bladder scan showed >425 cc; notified Dr. Templeton. and new order received. Uriarte F18 placed, 1000 cc urine collected.
--- NOTE | 2021-08-03 11:36 | PDOC ---
[employer] PROGRESS NOTE Date of Service DOS: DATE: 08/03/21 TIME: 11:32 Chief Complaint Chief Complaint Assessment/Plan Right pyelonephritis - etiology of abdominal pain. rocephin IV, fluids, flomax HHNKS - hyperglycemic, non-ketotic, will give aggressive IVF and insulin Hyponatremia - due to hyperglycemia, will trend Hypokalemia - due to hyperglycemia, will correct with insulin and fluids RAISA - vasomotor nephropathy from hyperglycemia, will hydrate, monitor UOP DM2 - will place back on insulin. He should be on triple therapy given his A1c greater than 8. Advised to use Humulin-N BID and Humulin R with meals outpatient H/o A-Fib - during left knee surgery previously, been on metoprolol BID since, no further episodes HLD - statin HTN urgency - will give prn hydralazine, cont home JOLEEN and toprol New onset right-sided weakness, rule out CVApending neuro evaluation and CT head results FEN - ADA diet PPX - lovenox FULL CODE DIspo - inpatient for above History of Present Illness History of Present Illness 55 year old male w/ PMHx DM2, arthritis, A-Fib, HLD, HTN, neuropathy who comes to ED from [facility] c/o right lower back and right lower quadrant abdominal pain. He has had pain for the last day with polyuria and polydipsia. Denies a history of kidney stones in the past, denies any hematuria dysuria. Says the pain is in his right lower quadrant is always dull but intermittently sharp and radiates to his right flank. He said he had a subjective fever yesterday. He does note he had a right ureteral surgery as a child and he and his father have both had urinary tract infections occasionally over the lives. He does note his blood sugar and blood pressure have been running high over the last day as well. When he used to take insulin his blood sugars usually run between 180 and 200, used to take 35units lantus twice daily. He notes on outpatient follow-up he was told to stop taking insulin after his A1c returned at 11 and was placed on Metformin and Actos a few weeks ago. He notes he is in the process of trying to move to [place]. He used to receive most of his health care in [place] but has been traveling around the country recently. He moved to [place] to be with a woman and has been depressed after the break-up and is getting help with the [employer] while he is working on transitioning to [place] to live with his cousin In ED blood pressure to be 203/110. WBC 8.9, Hb 13.3, platelets 240, NA 129, K5.4, BUN 24, CR 1.3, glucose 725 no anion gap, LFTs within normal laboratory limits, magnesium 2, phosphorus 3.2, a lbumin 3.8, lipase 130, urinalysis with glucosuria and leukocyte esterase positive. CT abdomen pelvis with concern for pyelonephritis right kidney no nephrolithiasis. Multiple renal lesions likely cysts and left adrenal nodule. Given IVF, antibiotics, insulin and admitted for further care. 08/03/2021 No acute events overnight. Patient seen examined bedside. This morning patient apparently stated that he had right-sided numbness and tingling's and some weakness in his upper extremity. Stroke code was called around [address] head was ordered. Pending neuro evaluation. One-time dose of aspirin 325 mg and atorvastatin was given. Further questioning patient stated that he was supposed to be on Xarelto for his atrial fibrillation, but he has not been sara ing this medication. Patient's chart, labs, images were reviewed and discussed with RN Vitals/I&O Vitals/I&O: Vital Signs Date Time Temp Pulse Resp B/P (MAP) Pulse Ox O2 Delivery O2 Flow Rate FiO2 08/03/21 07:00 97.4 69 16 167/85 (112) 94 Room Air 97.4 I & O 08/02/21 08/02/21 08/03/21 15:00 23:00 07:00 Intake Total 1000 ml 620 ml Balance 1000 ml 620 ml Physical Exam General: Alert, Oriented X3, Cooperative, moderate distress Abdomen: Normal bowel sounds, Soft, No hepatosplenomegaly, No masses, Other (Right flank tenderness and suprapubic tenderness) Extremities: Other (4 by centimeter lipoma mid back slightly tender) Skin: No rashes, No breakdown, No significant lesion Labs Labs: Laboratory Tests Test 08/02/21 11:45 08/02/21 13:05 08/02/21 18:07 08/02/21 20:43 White Blood Count 8.9 x10^3/uL (4.0-11.0) Red Blood Count 4.25 x10^6/uL (4.30-5.70) Hemoglobin 13.3 g/dL (13.0-17.5) Hematocrit 39.0 % (39.0-53.0) Mean Corpuscular Volume 92 fL (79-100) Mean Corpuscular Hemoglobin 31 pg (25-35) Mean Corpuscular Hemoglobin Concent 34 g/dL (31-37) Red Cell Distribution Width 13.9 % (11.5-14.5) Platelet Count 240 x10^3/uL (140-400) Neutrophils (%) (Auto) 81 % (31-73) Lymphocytes (%) (Auto) 10 % (24-48) Monocytes (%) (Auto) 5 % (0-9) Eosinophils (%) (Auto) 3 % (0-3) Basophils (%) (Auto) 1 % (0-3) Neutrophils # (Auto) 7.3 x10^3/uL (1.8-7.7) Lymphocytes # (Auto) 0.9 x10^3/uL (1.0-4.8) Monocytes # (Auto) 0.4 x10^3/uL (0.0-1.1) Eosinophils # (Auto) 0.3 x10^3/uL (0.0-0.7) Basophils # (Auto) 0.1 x10^3/uL (0.0-0.2) Sodium Level 129 mmol/L (136-145) Potassium Level 5.4 mmol/L (3.5-5.1) Chloride Level 94 mmol/L (98-107) Carbon Dioxide Level 28 mmol/L (21-32) Anion Gap 7 (6-14) Blood Urea Nitrogen 24 mg/dL (8-26) Creatinine 1.3 mg/dL (0.7-1.3) Estimated GFR (Cockcroft-Gault) 57.3 BUN/Creatinine Ratio 18 (6-20) Glucose Level 725 mg/dL (70-99) Calcium Level 8.9 mg/dL (8.5-10.1) Phosphorus Level 3.2 mg/dL (2.6-4.7) Magnesium Level 2.0 mg/dL (1.8-2.4) Total Bilirubin 1.0 mg/dL (0.2-1.0) Aspartate Amino Transf (AST/SGOT) 8 U/L (15-37) Alanine Aminotransferase (ALT/SGPT) 23 U/L (16-63) Alkaline Phosphatase 103 U/L (46-116) Total Protein 7.4 g/dL (6.4-8.2) Albumin 3.8 g/dL (3.4-5.0) Albumin/Globulin Ratio 1.1 (1.0-1.7) Lipase 130 U/L (73-393) Urine Collection Type Unknown Urine Color (Auto) Light yellow Urine Turbidity Clear Urine pH (Auto) 7.0 (<5.0-8.0) Urine Specific [place] 1.027 (1.000-1.030) Urine Protein (Auto) 50 mg/dL (Negative) Urine Glucose (Auto)(UA) >=1000 mg/dL (Negative) Urine Ketones (Auto) Negative mg/dL (Negative) Urine Blood (Auto) Trace (Negative) Urine Nitrite Negative (Negative) Urine Bilirubin (Auto) Negative (Negative) Urine Urobilinogen (Auto) Normal mg/dL (Normal) Urine Leukocyte Esterase (Auto) Small (Negative) Urine RBC 1-2 /HPF (0-2) Urine WBC 20-40 /HPF (0-4) Urine Squamous Epithelial Cells Few /LPF Urine Bacteria Moderate /HPF (0-FEW) Urine Yeast Present /HPF Glucose (Fingerstick) 423 mg/dL (70-99) 420 mg/dL (70-99) Test 08/03/21 07:20 08/03/21 08:32 08/03/21 09:25 Sodium Level 137 mmol/L (136-145) Potassium Level 4.2 mmol/L (3.5-5.1) Chloride Level 104 mmol/L (98-107) Carbon Dioxide Level 29 mmol/L (21-32) Anion Gap 4 (6-14) Blood Urea Nitrogen 26 mg/dL (8-26) Creatinine 0.9 mg/dL (0.7-1.3) Estimated GFR (Cockcroft-Gault) 87.6 Glucose Level 144 mg/dL (70-99) Calcium Level 8.4 mg/dL (8.5-10.1) Glucose (Fingerstick) 150 mg/dL (70-99) Activated Partial Thromboplast Time 27 SEC (24-38) Assessment and Plan Assessmemt and Plan Problems Medical Problems: (1) Hyperglycemia due to type 2 diabetes mellitus Status: Acute (2) Pyelonephritis of right kidney Status: Acute Comment Review of Relevant I have reviewed the following items lainey (where applicable) has been applied. Medications: Current Medications Medications (Trade) Dose Ordered Sig/Norma Route PRN Reason Start Time Stop Time Status Last Admin Dose Admin Fentanyl Citrate (Fentanyl 2ml Vial) 75 mcg 1X ONCE IVP 08/02/21 12:15 08/02/21 12:16 DC 08/02/21 11:54 Sodium Chloride 1,000 ml @ 1,000 mls/hr 1X ONCE IV 08/02/21 11:45 08/02/21 12:44 DC 08/02/21 11:45 Ondansetron HCl (Zofran) 4 mg 1X ONCE IVP 08/02/21 12:15 08/02/21 12:16 DC 08/02/21 11:56 Iohexol (Omnipaque 300 Mg/ml) 75 ml 1X ONCE IV 08/02/21 12:00 08/02/21 12:01 DC 08/02/21 12:40 Ceftriaxone Sodium (Rocephin) 2 gm 1X ONCE IVP 08/02/21 14:30 08/02/21 14:31 DC 08/02/21 14:55 Sodium Chloride 1,000 ml @ 1,000 mls/hr 1X ONCE IV 08/02/21 14:15 08/02/21 15:14 DC 08/02/21 14:52 Sodium Chloride 1,000 ml @ 1,000 mls/hr 1X ONCE IV 08/02/21 14:15 08/02/21 15:14 DC 08/02/21 18:11 Morphine Sulfate (Morphine Sulfate) 4 mg 1X ONCE IV 08/02/21 14:45 08/02/21 14:46 DC 08/02/21 14:53 Insulin Human Regular (HumuLIN R VIAL) 5 unit 1X ONCE IV 08/02/21 14:45 08/02/21 14:46 DC 08/02/21 14:55 Tramadol HCl (Ultram) 50 mg PRN Q6HRS PRN PO PAIN 08/02/21 16:30 08/02/21 22:16 Tamsulosin HCl (Flomax) 0.4 mg QHS PO 08/02/21 21:00 08/02/21 21:25 Insulin Glargine (Lantus Syringe) 30 unit BID SQ 08/02/21 21:00 08/02/21 21:10 Ceftriaxone Sodium (Rocephin) 2 gm Q24H IVP 08/03/21 10:00 08/03/21 10:14 Metoprolol Tartrate (Lopressor) 25 mg BID PO 08/02/21 21:00 08/02/21 21:25 Linagliptin (Tradjenta) 5 mg DAILY PO 08/03/21 09:00 08/03/21 10:14 Insulin Human Lispro (HumaLOG) 23 units 1X ONCE SQ 08/02/21 19:00 08/02/21 19:01 DC 08/02/21 21:10 Aspirin (Rico Aspirin) 325 mg 1X ONCE PO 08/03/21 10:30 08/03/21 10:31 DC 08/03/21 10:13 Atorvastatin Calcium (Lipitor) 40 mg 1X ONCE PO 08/03/21 10:00 08/03/21 10:01 DC 08/03/21 10:13 Justifications for Admission Other Justification NILS MADISON MD Aug 03, 2021 11:36
[2021-08-03 12:19] LABS: CHOLESTEROL/HDL RATIO 3.5
--- NOTE | 2021-08-03 12:24 | EKG ---
[facility] [address] [place] [address] Test Date: 2021-08-03 Test Time: 11:17:31 Pat Name: Hua ADAME Department: Room: 528 1 Gender: M [employer] Machine: : [id number] Requested By: NILS MADISON Order Number: [id number] Reading MD: Corey Tellez MD Measurements Intervals [place] Rate: 79 P: [place]: QRS: 76 QRSD: 130 T: 11 QT: 410 QTc: 471 Interpretive Statements SINUS ARRHYTHMIA RIGHT BUNDLE BRANCH BLOCK RVH WITH REPOLARIZATION ABNORMALITY PACS Electronically Signed On 08-05-2021 7:00:57 CDT by Corey Tellez MD
[2021-08-03] MEDS: traMADol 50 MG TABLET PO PRN ×2 (12:52→21:35)
[2021-08-03] MEDS: INSULIN GLARGINE SYRINGE. SQ SCH ×2 (13:08→21:31)
[2021-08-03 15:00] VITALS: BP 143/55
--- NOTE | 2021-08-03 16:45 | PDOC2 ---
CONSULT Date of Consult Date of Consult Neurology Consultation DATE: 08/03/21 TIME: 16:34 Reason for Consult Reason for Consult: Concern for stroke Referring Physician Referring Physician: Dr. Anselmo Mckeon History of Present Illness Reason for Visit: Hua Carter II is a 55-year-old man admitted to [facility] due to complaining of right lower back and right lower quadrant abdominal pain. He is found to have urinary tract infection. On August 03, 2021 at 0300 he began to have weakness and numbness of his right arm. He did not notify the nurses until at least 5 hours later. I was contacted by his nurse at 0933 and immediately return to call. His blood sugar was not low and his blood pressure was not low. The symptoms were persisting. He went for a stat CT scan of his head which was negative. He was not a candidate for intravenous alteplase as he was outside the time window for consideration. Symptoms were minor and did not suggest a large vessel occlusion. Through the course of the day his symptoms have been stable with weakness of the right hand, elbow and shoulder. At baseline he is weakness of both legs and does not notice a difference. He reports being diagnosed with diabetes around 2014 but notes that he has a very advanced neuropathy. He is generally neglected his health until more recently. He also has a history of atrial fibrillation but has not been taking Xarelto due to cost. He has hyperlipidemia and hypertension. The pain for which he came in has improved with antibiotics. Past Medical History Cardiovascular: AFIB, HTN, Hyperlipidemia Endocrine: Diabetes Social History No ALCOHOL: none Drugs: None Current Problem List Problem List Problems Medical Problems: (1) Hyperglycemia due to type 2 diabetes mellitus Status: Acute (2) Pyelonephritis of right kidney Status: Acute Current Medications Current Medications Current Medications Fentanyl Citrate (Fentanyl 2ml Vial) 75 mcg 1X ONCE IVP Last administered on 08/02/21at 11:54; Start 08/02/21 at 12:15; Stop 08/02/21 at 12:16; Status DC Sodium Chloride 1,000 ml @ 1,000 mls/hr 1X ONCE IV Last administered on 08/02/21at 11:45; Start 08/02/21 at 11:45; Stop 08/02/21 at 12:44; Status DC Ondansetron HCl (Zofran) 4 mg 1X ONCE IVP Last administered on 08/02/21at 11:56; Start 08/02/21 at 12:15; Stop 08/02/21 at 12:16; Status DC Iohexol (Omnipaque 300 Mg/ml) 75 ml 1X ONCE IV Last administered on 08/02/21at 12:40; Start 08/02/21 at 12:00; Stop 08/02/21 at 12:01; Status DC Info (CONTRAST GIVEN -- Rx MONITORING) 1 each PRN DAILY PRN MC SEE COMMENTS; Start 08/02/21 at 12:15; Stop 08/04/21 at 12:14 Ceftriaxone Sodium (Rocephin) 2 gm 1X ONCE IVP Last administered on 08/02/21at 14:55; Start 08/02/21 at 14:30; Stop 08/02/21 at 14:31; Status DC Sodium Chloride 1,000 ml @ 1,000 mls/hr 1X ONCE IV Last administered on 08/02/21at 14:52; Start 08/02/21 at 14:15; Stop 08/02/21 at 15:14; Status DC Sodium Chloride 1,000 ml @ 1,000 mls/hr 1X ONCE IV Last administered on 08/02/21at 18:11; Start 08/02/21 at 14:15; Stop 08/02/21 at 15:14; Status DC Morphine Sulfate (Morphine Sulfate) 4 mg 1X ONCE IV Last administered on 08/02/21at 14:53; Start 08/02/21 at 14:45; Stop 08/02/21 at 14:46; Status DC Insulin Human Regular (HumuLIN R VIAL) 5 unit 1X ONCE IV Last administered on 08/02/21at 14:55; Start 08/02/21 at 14:45; Stop 08/02/21 at 14:46; Status DC Ondansetron HCl (Zofran) 4 mg PRN Q4HRS PRN IVP NAUSEA/VOMITING; Start 08/02/21 at 16:30 Tramadol HCl (Ultram) 50 mg PRN Q6HRS PRN PO PAIN Last administered on 08/03/21at 12:52; Start 08/02/21 at 16:30 Tamsulosin HCl (Flomax) 0.4 mg QHS PO Last administered on 08/02/21at 21:25; Start 08/02/21 at 21:00 Insulin Glargine (Lantus Syringe) 30 unit BID SQ Last administered on 08/03/21at 13:08; Start 08/02/21 at 21:00 Insulin Human Lispro (HumaLOG) 0-9 UNITS TIDWMEALS SQ Last administered on 08/03/21at 13:03; Start 08/02/21 at 17:00 Dextrose (Dextrose 50%-Water Syringe) 12.5 gm PRN Q15MIN PRN IV SEE COMMENTS; Start 08/02/21 at 16:30 Dextrose (Iv Dextrose 5%) 250 ml PRN Q15MIN PRN IV SEE COMMENTS; Start 08/02/21 at 16:30 Insulin Human Lispro (HumaLOG) 4 units TIDAC SQ Last administered on 08/03/21at 13:04; Start 08/02/21 at 16:30 Ceftriaxone Sodium (Rocephin) 2 gm Q24H IVP Last administered on 08/03/21at 10:14; Start 08/03/21 at 10:00 Fentanyl Citrate (Fentanyl 2ml Vial) 25 mcg PRN Q3HRS PRN IVP SEVERE PAIN 7-10; Start 08/02/21 at 16:30 Hydralazine HCl (Apresoline Inj) 10 mg PRN Q4HRS PRN IVP ELEVATED BP, SEE COMMENTS; Start 08/02/21 at 16:30 Lisinopril (Prinivil) 20 mg DAILY PO ; Start 08/03/21 at 09:00 Metoprolol Tartrate (Lopressor) 25 mg BID PO Last administered on 08/02/21at 21:25; Start 08/02/21 at 21:00 Linagliptin (Tradjenta) 5 mg DAILY PO Last administered on 08/03/21at 10:14; Start 08/03/21 at 09:00 Insulin Human Lispro (HumaLOG) 23 units 1X ONCE SQ Last administered on 07/09 10/29at 21:10; Start 08/02/21 at 19:00; Stop 08/02/21 at 19:01; Status DC Aspirin (Rico Aspirin) 325 mg 1X ONCE PO Last administered on 08/03/21at 10:13; Start 08/03/21 at 10:30; Stop 08/03/21 at 10:31; Status DC Atorvastatin Calcium (Lipitor) 40 mg 1X ONCE PO Last administered on 08/03/21at 10:13; Start 08/03/21 at 10:00; Stop 08/03/21 at 10:01; Status DC Aspirin (Ecotrin) 81 mg DAILYWBKFT PO ; Start 08/04/21 at 08:00 Active Scripts Active Tramadol Hcl 50 Mg Tablet 50 Mg PO Q6HRS PRN Reported Pravastatin Sodium 20 Mg Tablet 1 Tab PO DAILY Actos (Pioglitazone Hcl) 15 Mg Tablet 1 Tab PO DAILY 30 Days Metformin Hcl 500 Mg Tablet 500 Mg PO BIDWMEALS Xarelto (Rivaroxaban) 10 Mg Tablet 1 Tab PO DAILY 7 Days Allergies Allergies: Coded Allergies: No Known Drug Allergies (Unverified , 07/16/21) ROS Review of System Constitutional: Negative Eyes: Negative HENT: Negative Respiratory: Negative Cardiovascular: Negative GI: Negative : He has had an infection. Musculoskeletal: Negative Neurologic: Chronic numbness to below the knees. Hematologic: Negative Lymphatic: Chronic swelling of his calves, ankles and feet Psychiatric: Negative Endocrine: Diabetes Physical Exam Physical Exam He was alert, awake and cooperative. The speech was fluent and clear. He had a good fund of recent and remote knowledge. Attention and concentration was intact. He was well-groomed and well-nourished. He was fully oriented. Examination of the cranial nerves revealed visual andrews were full to confrontation. Extraocular movements were intact. The eyes were conjugate. Pursuit movements were smooth and saccadic movements were without dysmetria. The pupils were 3 millimeters and reacted to light. There was no afferent pupillary defect. Funduscopic examination did not reveal papilledema, exudate or hemorrhage. Facial sensation was intact. The muscles of mastication and facial expression were powerful symmetrically except for delay of initiation of left smile. Hearing was intact to finger rub. The palate arch symmetrically and the tongue was midline with full range of motion. Sternocleidomastoid and trapezius were powerful bilaterally. Muscle bulk and tone was normal. There was no arm drift or abnormal movement. The power was generally diminished throughout but more focally diminished with the right finger abduction, finger flexion, elbow extension and arm abduction. The left upper extremity was more powerful. Both legs were very weak with hip and knee flexion and dorsi flexion. Reflexes were 1/4 and symmetric in the upper extremities. Reflexes were absent at the knees and ankles. The toes were downgoing bilaterally. Coordination testing with finger to nose, heel to ramsay, fine motor and rapid alternating movements was well performed. The sensory examination was intact to pain, light touch, proprioception, graphesthesia, cold thermal and vibration except for sensory shading in the legs to below the knees and distally in the fingers bilaterally. There was no extinction to double simultaneous stimulation. The gait was not testable. Auscultation of the carotid arteries did not reveal a bruit. Heart rhythm was regular without a murmur. Peripheral pulses are 2/4 at the wrists and feet. There was no cyanosis of the extremities. He had severe edema of the calves, ankles and feet bilaterally. Vitals VITALS Vital Signs Date Time Temp Pulse Resp B/P (MAP) Pulse Ox O2 Delivery O2 Flow Rate FiO2 08/03/21 15:00 97.8 78 16 143/55 (84) 99 Room Air 97.8 Labs Labs Laboratory Tests Test 08/02/21 11:45 08/02/21 13:05 08/02/21 18:07 08/02/21 20:43 White Blood Count 8.9 x10^3/uL (4.0-11.0) Red Blood Count 4.25 x10^6/uL (4.30-5.70) Hemoglobin 13.3 g/dL (13.0-17.5) Hematocrit 39.0 % (39.0-53.0) Mean Corpuscular Volume 92 fL (79-100) Mean Corpuscular Hemoglobin 31 pg (25-35) Mean Corpuscular Hemoglobin Concent 34 g/dL (31-37) Red Cell Distribution Width 13.9 % (11.5-14.5) Platelet Count 240 x10^3/uL (140-400) Neutrophils (%) (Auto) 81 % (31-73) Lymphocytes (%) (Auto) 10 % (24-48) Monocytes (%) (Auto) 5 % (0-9) Eosinophils (%) (Auto) 3 % (0-3) Basophils (%) (Auto) 1 % (0-3) Neutrophils # (Auto) 7.3 x10^3/uL (1.8-7.7) Lymphocytes # (Auto) 0.9 x10^3/uL (1.0-4.8) Monocytes # (Auto) 0.4 x10^3/uL (0.0-1.1) Eosinophils # (Auto) 0.3 x10^3/uL (0.0-0.7) Basophils # (Auto) 0.1 x10^3/uL (0.0-0.2) Sodium Level 129 mmol/L (136-145) Potassium Level 5.4 mmol/L (3.5-5.1) Chloride Level 94 mmol/L (98-107) Carbon Dioxide Level 28 mmol/L (21-32) Anion Gap 7 (6-14) Blood Urea Nitrogen 24 mg/dL (8-26) Creatinine 1.3 mg/dL (0.7-1.3) Estimated GFR (Cockcroft-Gault) 57.3 BUN/Creatinine Ratio 18 (6-20) Glucose Level 725 mg/dL (70-99) Calcium Level 8.9 mg/dL (8.5-10.1) Phosphorus Level 3.2 mg/dL (2.6-4.7) Magnesium Level 2.0 mg/dL (1.8-2.4) Total Bilirubin 1.0 mg/dL (0.2-1.0) Aspartate Amino Transf (AST/SGOT) 8 U/L (15-37) Alanine Aminotransferase (ALT/SGPT) 23 U/L (16-63) Alkaline Phosphatase 103 U/L (46-116) Total Protein 7.4 g/dL (6.4-8.2) Albumin 3.8 g/dL (3.4-5.0) Albumin/Globulin Ratio 1.1 (1.0-1.7) Lipase 130 U/L (73-393) Urine Collection Type Unknown Urine Color (Auto) Light yellow Urine Turbidity Clear Urine pH (Auto) 7.0 (<5.0-8.0) Urine Specific [place] 1.027 (1.000-1.030) Urine Protein (Auto) 50 mg/dL (Negative) Urine Glucose (Auto)(UA) >=1000 mg/dL (Negative) Urine Ketones (Auto) Negative mg/dL (Negative) Urine Blood (Auto) Trace (Negative) Urine Nitrite Negative (Negative) Urine Bilirubin (Auto) Negative (Negative) Urine Urobilinogen (Auto) Normal mg/dL (Normal) Urine Leukocyte Esterase (Auto) Small (Negative) Urine RBC 1-2 /HPF (0-2) Urine WBC 20-40 /HPF (0-4) Urine Squamous Epithelial Cells Few /LPF Urine Bacteria Moderate /HPF (0-FEW) Urine Yeast Present /HPF Glucose (Fingerstick) 423 mg/dL (70-99) 420 mg/dL (70-99) Test 08/03/21 07:20 08/03/21 08:32 08/03/21 09:25 08/03/21 12:02 Sodium Level 137 mmol/L (136-145) Potassium Level 4.2 mmol/L (3.5-5.1) Chloride Level 104 mmol/L (98-107) Carbon Dioxide Level 29 mmol/L (21-32) Anion Gap 4 (6-14) Blood Urea Nitrogen 26 mg/dL (8-26) Creatinine 0.9 mg/dL (0.7-1.3) Estimated GFR (Cockcroft-Gault) 87.6 Glucose Level 144 mg/dL (70-99) Calcium Level 8.4 mg/dL (8.5-10.1) Triglycerides Level 87 mg/dL (0-150) Cholesterol Level 132 mg/dL (0-200) LDL Cholesterol, Calculated 77 mg/dL (0-100) VLDL Cholesterol, Calculated 17 mg/dL (0-40) Non-HDL Cholesterol Calculated 94 mg/dL (0-129) HDL Cholesterol 38 mg/dL (40-60) Cholesterol/HDL Ratio 3.5 Glucose (Fingerstick) 150 mg/dL (70-99) 257 mg/dL (70-99) Activated Partial Thromboplast Time 27 SEC (24-38) Laboratory Tests Test 08/02/21 18:07 08/02/21 20:43 08/03/21 07:20 08/03/21 08:32 Glucose (Fingerstick) 423 mg/dL (70-99) 420 mg/dL (70-99) 150 mg/dL (70-99) Sodium Level 137 mmol/L (136-145) Potassium Level 4.2 mmol/L (3.5-5.1) Chloride Level 104 mmol/L (98-107) Carbon Dioxide Level 29 mmol/L (21-32) Anion Gap 4 (6-14) Blood Urea Nitrogen 26 mg/dL (8-26) Creatinine 0.9 mg/dL (0.7-1.3) Estimated GFR (Cockcroft-Gault) 87.6 Glucose Level 144 mg/dL (70-99) Calcium Level 8.4 mg/dL (8.5-10.1) Triglycerides Level 87 mg/dL (0-150) Cholesterol Level 132 mg/dL (0-200) LDL Cholesterol, Calculated 77 mg/dL (0-100) VLDL Cholesterol, Calculated 17 mg/dL (0-40) Non-HDL Cholesterol Calculated 94 mg/dL (0-129) HDL Cholesterol 38 mg/dL (40-60) Cholesterol/HDL Ratio 3.5 Test 08/03/21 09:25 08/03/21 12:02 Activated Partial Thromboplast Time 27 SEC (24-38) Glucose (Fingerstick) 257 mg/dL (70-99) Images Images CT head without contrast August 03, 2021 FINDINGS: No intracranial hemorrhage. No significant midline shift. Ventricles and sulci are globally prominent. Scattered foci of low attenuation within the white matter. IMPRESSION: * No acute intracranial hemorrhage. * Scattered regions of low attenuation within the white matter. Non-specific in nature but a common finding and frequently secondary to small vessel ischemic disease. CT abdominal/pelvis August 02, 2021 FINDINGS: The evaluation of the solid organs is limited due to lack of IV contrast. The evaluation of bowel is limited due to lack of oral contrast. Lower Chest: Visualized lung bases are clear. Significant coronary artery atherosclerotic disease. Heart size is within normal limits. Trace peripheral effusion. Abdomen and Pelvis: Liver is normal in size and attenuation without focal hepatic lesion. There appears to be vicarious excretion of contrast within the gallbladder. No significant biliary ductal dilation. The spleen and pancreas are unremarkable. Right adrenal gland is normal. 1.6 cm hypoattenuating nodule in the left adrenal gland. Hypoattenuating 1.4 cm nodule in the interpolar region of the right kidney with attenuation greater than that of simple fluid. Additional subcentimeter hypoattenuating lesions in bilateral kidneys are too small to characterize. No obstructing nephro or ureterolithiasis. The right kidney appears slightly edematous with mild pelvocaliectasis. There is minimal asymmetric perinephric on the right. Stomach is unremarkable. No evidence of bowel obstruction or focal inflammation. Appendix is normal. Mild to moderate colorectal stool burden. Aortobiiliac atherosclerotic disease. No pathologically enlarged abdominal or pelvic adenopathy. No free intra-abdominal air or free fluid. Urinary bladder is mildly distended without focal inflammation. Prostate is unremarkable. Anterior abdominal wall is normal. Multilevel degenerative changes of the thoracolumbar spine no acute or suspicious osseous abnormalities. IMPRESSION: 1. Findings suggestive of possible ascending urinary tract infection versus pyelonephritis involving the right kidney. No evidence of obstructing urolithiasis. Correlation with urinalysis is recommended. 2. Variable sized hypoattenuating renal lesions favoring mildly complicated cysts. Correlation with prior imaging if available to assess stability. If none is available then follow-up nonemergent renal ultrasound in 3-6 months. 3. 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 Correlation with prior imaging to assess stability is recommended. If no prior imaging is available then follow-up with nonemergent CT or MRI with adrenal gland protocol. 4. Other chronic/incidental findings, as above. Assessment/Plan Assessment/Plan Patient is a 55-year-old man with diabetes who presented with pyelonephritis. He is being treated medically with improvement of his pain. He reports developing weakness and numbness of his right arm at 0300 on August 03, 2021. He did not report this to the nurses for many hours. When the nurses became aware he was outside the window for consideration of TPA. He does have risk factors for stroke including atrial fibrillation, diabetes, and hypertension. His neurologic exam does reveal some weakness in the right arm. His exam is difficult to interpret because of a very advanced neuropathy. Both legs are weak without definite focal weakness in the right leg. Some of the strength in his right arm does seem effort dependent. I will arrange for an MRI brain to better evaluate for stroke. We will also obtain an echocardiogram and carotid Doppler to look for an embolic source. He has already been given an aspirin which I will continue. We will check a lipid profile. The therapies have been consulted. I do recommend anticoagulation with his history of atrial fibrillation. The barrier for the anticoagulant was cost. The social work coordinator could always look into options. I appreciate being involved in his care. GRACE TAMAYO MD Aug 03, 2021 16:45
[2021-08-03] MEDS: TAMSULOSIN 0.4 MG CAP.ER.24H. PO SCH (21:26)
[2021-08-03 23:07] VITALS: BP 130/71
[2021-08-04 03:14] VITALS: BP 137/64
[2021-08-04 07:00] VITALS: BP 180/86
--- NOTE | 2021-08-04 07:12 | RAD ---
EXAM: Carotid Doppler sonogram. HISTORY: Stroke. Atherosclerosis. TECHNIQUE: Lange scale and color Doppler sonographic evaluation of the neck with spectral waveform malissa lysis was performed and static images are submitted for review. FINDINGS: The peak systolic velocity within the right common carotid artery is 95 cm/sec. The peak sy stolic velocity within the right internal carotid artery is 87 cm/sec and the end diastolic velocity within the right internal carotid artery is 32 cm/sec. The right ICA/CCA ratio is 1.1. The peak systolic velocity within the left common carotid artery is 75 cm/sec. The peak systolic [place] within the left internal carotid artery is 85 cm/sec and the end diastolic velocity within the l eft internal carotid artery is 31 cm/sec. The left ICA/CCA ratio is 1.1. There is normal antegrade flow within both vertebral arteries. IMPRESSION: Doppler findings consistent with less than 50 percent stenosis involving the internal car otid arteries. PQRS Compliance Statement - Stenosis calculations for CT, MR and conventional angiography are based u dwayne measurement of the distal ICA diameter in accordance with the NASCET methodology. Stenosis calcu lations for carotid ultrasound studies are derived from validated velocity criteria which are known t o correlate with the NASCET methodology. Electronically signed by: Chantel Bee MD (08/04/2021 7:10 AM) [facility]
[2021-08-04] MEDS: INSULIN LISPRO 300 UNITS/3 ML VIAL. SQ SCH ×7 (07:30→17:10)
[2021-08-04 07:37] LABS: CALCIUM 8.3 mg/dL (8.5-10.1); CREATININE 0.9 mg/dL (0.7-1.3); GFR 87.6; POTASSIUM 3.8 mmol/L (3.5-5.1)
[2021-08-04] MEDS: ASPIRIN ENTERIC COATED 81 MG TABLET.DR. PO SCH (08:48)
[2021-08-04] MEDS: LISINOPRIL 20 MG TABLET PO SCH (08:48)
[2021-08-04] MEDS: LINAGLIPTIN 5 MG TABLET PO SCH (08:49)
[2021-08-04] MEDS: METOPROLOL TART IMMED RELEASE 25 MG TABLET. PO SCH ×2 (08:49→21:34)
[2021-08-04] MEDS: INSULIN GLARGINE SYRINGE. SQ SCH ×2 (09:15→21:38)
[2021-08-04] MEDS: cefTRIAXone IV Push 2 GM VIAL. IVP SCH (09:30)
--- NOTE | 2021-08-04 10:08 | PDOC ---
PROGRESS NOTES Date of Service DATE: 08/04/21 TIME: 10:01 Assessment Problems Medical Problems: (1) Hyperglycemia due to type 2 diabetes mellitus Status: Acute (2) Pyelonephritis of right kidney Status: Acute Stroke, weakness of right side starting at 0 300 on August 03, did not report to nurse for many hours so was not a candidate for alteplase. Awaiting MRI of the brain Pyelonephritis Diabetic neuropathy Plan Aspirin Statin Check lipids Await echocardiogram and MRI brain Rehabilitation modalities Subjective No new complaints Objective Vital Signs Date Time Temp Pulse Resp B/P (MAP) Pulse Ox O2 Delivery O2 Flow Rate FiO2 08/04/21 08:49 80 180/86 08/04/21 07:00 98.3 16 96 Room Air 98.3 Intake and Output 08/04/21 07:00 Intake Total 1000 ml Output Total 1950 ml Balance -950 ml Intake Oral 1000 ml Output Urine Total 1950 ml PHYSICAL EXAM Alert. Oriented to time, place and person. PERRL. EOMI. CN: no focal findings. Muscle tone: normal. Muscle strength: 4/5, weaker on the right DTR: 1+ Plantar reflex: Flexor Gait: not examined in bed. Sensory exam: Stocking loss No cerebellar signs elicited. Review of Relevant I have reviewed the following items lainey (where applicable) has been applied. Labs Laboratory Tests Test 08/02/21 11:45 08/02/21 13:05 08/02/21 18:07 08/02/21 20:43 White Blood Count 8.9 x10^3/uL (4.0-11.0) Red Blood Count 4.25 x10^6/uL (4.30-5.70) Hemoglobin 13.3 g/dL (13.0-17.5) Hematocrit 39.0 % (39.0-53.0) Mean Corpuscular Volume 92 fL (79-100) Mean Corpuscular Hemoglobin 31 pg (25-35) Mean Corpuscular Hemoglobin Concent 34 g/dL (31-37) Red Cell Distribution Width 13.9 % (11.5-14.5) Platelet Count 240 x10^3/uL (140-400) Neutrophils (%) (Auto) 81 % (31-73) Lymphocytes (%) (Auto) 10 % (24-48) Monocytes (%) (Auto) 5 % (0-9) Eosinophils (%) (Auto) 3 % (0-3) Basophils (%) (Auto) 1 % (0-3) Neutrophils # (Auto) 7.3 x10^3/uL (1.8-7.7) Lymphocytes # (Auto) 0.9 x10^3/uL (1.0-4.8) Monocytes # (Auto) 0.4 x10^3/uL (0.0-1.1) Eosinophils # (Auto) 0.3 x10^3/uL (0.0-0.7) Basophils # (Auto) 0.1 x10^3/uL (0.0-0.2) Sodium Level 129 mmol/L (136-145) Potassium Level 5.4 mmol/L (3.5-5.1) Chloride Level 94 mmol/L (98-107) Carbon Dioxide Level 28 mmol/L (21-32) Anion Gap 7 (6-14) Blood Urea Nitrogen 24 mg/dL (8-26) Creatinine 1.3 mg/dL (0.7-1.3) Estimated GFR (Cockcroft-Gault) 57.3 BUN/Creatinine Ratio 18 (6-20) Glucose Level 725 mg/dL (70-99) Calcium Level 8.9 mg/dL (8.5-10.1) Phosphorus Level 3.2 mg/dL (2.6-4.7) Magnesium Level 2.0 mg/dL (1.8-2.4) Total Bilirubin 1.0 mg/dL (0.2-1.0) Aspartate Amino Transf (AST/SGOT) 8 U/L (15-37) Alanine Aminotransferase (ALT/SGPT) 23 U/L (16-63) Alkaline Phosphatase 103 U/L (46-116) Total Protein 7.4 g/dL (6.4-8.2) Albumin 3.8 g/dL (3.4-5.0) Albumin/Globulin Ratio 1.1 (1.0-1.7) Lipase 130 U/L (73-393) Urine Collection Type Unknown Urine Color (Auto) Light yellow Urine Turbidity Clear Urine pH (Auto) 7.0 (<5.0-8.0) Urine Specific Dent 1.027 (1.000-1.030) Urine Protein (Auto) 50 mg/dL (Negative) Urine Glucose (Auto)(UA) >=1000 mg/dL (Negative) Urine Ketones (Auto) Negative mg/dL (Negative) Urine Blood (Auto) Trace (Negative) Urine Nitrite Negative (Negative) Urine Bilirubin (Auto) Negative (Negative) Urine Urobilinogen (Auto) Normal mg/dL (Normal) Urine Leukocyte Esterase (Auto) Small (Negative) Urine RBC 1-2 /HPF (0-2) Urine WBC 20-40 /HPF (0-4) Urine Squamous Epithelial Cells Few /LPF Urine Bacteria Moderate /HPF (0-FEW) Urine Yeast Present /HPF Glucose (Fingerstick) 423 mg/dL (70-99) 420 mg/dL (70-99) Test 08/03/21 07:20 08/03/21 08:32 08/03/21 09:25 08/03/21 12:02 Sodium Level 137 mmol/L (136-145) Potassium Level 4.2 mmol/L (3.5-5.1) Chloride Level 104 mmol/L (98-107) Carbon Dioxide Level 29 mmol/L (21-32) Anion Gap 4 (6-14) Blood Urea Nitrogen 26 mg/dL (8-26) Creatinine 0.9 mg/dL (0.7-1.3) Estimated GFR (Cockcroft-Gault) 87.6 Glucose Level 144 mg/dL (70-99) Calcium Level 8.4 mg/dL (8.5-10.1) Triglycerides Level 87 mg/dL (0-150) Cholesterol Level 132 mg/dL (0-200) LDL Cholesterol, Calculated 77 mg/dL (0-100) VLDL Cholesterol, Calculated 17 mg/dL (0-40) Non-HDL Cholesterol Calculated 94 mg/dL (0-129) HDL Cholesterol 38 mg/dL (40-60) Cholesterol/HDL Ratio 3.5 Glucose (Fingerstick) 150 mg/dL (70-99) 257 mg/dL (70-99) Activated Partial Thromboplast Time 27 SEC (24-38) Test 08/03/21 17:13 08/03/21 20:53 08/04/21 06:40 08/04/21 07:59 Glucose (Fingerstick) 321 mg/dL (70-99) 159 mg/dL (70-99) 182 mg/dL (70-99) Sodium Level 138 mmol/L (136-145) Potassium Level 3.8 mmol/L (3.5-5.1) Chloride Level 105 mmol/L (98-107) Carbon Dioxide Level 28 mmol/L (21-32) Anion Gap 5 (6-14) Blood Urea Nitrogen 28 mg/dL (8-26) Creatinine 0.9 mg/dL (0.7-1.3) Estimated GFR (Cockcroft-Gault) 87.6 Glucose Level 176 mg/dL (70-99) Calcium Level 8.3 mg/dL (8.5-10.1) Laboratory Tests Test 08/03/21 12:02 08/03/21 17:13 08/03/21 20:53 08/04/21 06:40 Glucose (Fingerstick) 257 mg/dL (70-99) 321 mg/dL (70-99) 159 mg/dL (70-99) Sodium Level 138 mmol/L (136-145) Potassium Level 3.8 mmol/L (3.5-5.1) Chloride Level 105 mmol/L (98-107) Carbon Dioxide Level 28 mmol/L (21-32) Anion Gap 5 (6-14) Blood Urea Nitrogen 28 mg/dL (8-26) Creatinine 0.9 mg/dL (0.7-1.3) Estimated GFR (Cockcroft-Gault) 87.6 Glucose Level 176 mg/dL (70-99) Calcium Level 8.3 mg/dL (8.5-10.1) Test 08/04/21 07:59 Glucose (Fingerstick) 182 mg/dL (70-99) Microbiology 08/02/21 Urine Culture - Final, Complete Beta Strep Group B Medications Current Medications Fentanyl Citrate (Fentanyl 2ml Vial) 75 mcg 1X ONCE IVP Last administered on 08/02/21at 11:54; Start 08/02/21 at 12:15; Stop 08/02/21 at 12:16; Status DC Sodium Chloride 1,000 ml @ 1,000 mls/hr 1X ONCE IV Last administered on 08/02/21at 11:45; Start 08/02/21 at 11:45; Stop 08/02/21 at 12:44; Status DC Ondansetron HCl (Zofran) 4 mg 1X ONCE IVP Last administered on 08/02/21at 11:56; Start 08/02/21 at 12:15; Stop 08/02/21 at 12:16; Status DC Iohexol (Omnipaque 300 Mg/ml) 75 ml 1X ONCE IV Last administered on 08/02/21at 12:40; Start 08/02/21 at 12:00; Stop 08/02/21 at 12:01; Status DC Info (CONTRAST GIVEN -- Rx MONITORING) 1 each PRN DAILY PRN MC SEE COMMENTS; Start 08/02/21 at 12:15; Stop 08/04/21 at 12:14 Ceftriaxone Sodium (Rocephin) 2 gm 1X ONCE IVP Last administered on 08/02/21at 14:55; Start 08/02/21 at 14:30; Stop 08/02/21 at 14:31; Status DC Sodium Chloride 1,000 ml @ 1,000 mls/hr 1X ONCE IV Last administered on 08/02/21at 14:52; Start 08/02/21 at 14:15; Stop 08/02/21 at 15:14; Status DC Sodium Chloride 1,000 ml @ 1,000 mls/hr 1X ONCE IV Last administered on 08/02/21at 18:11; Start 08/02/21 at 14:15; Stop 08/02/21 at 15:14; Status DC Morphine Sulfate (Morphine Sulfate) 4 mg 1X ONCE IV Last administered on 08/02/21at 14:53; Start 08/02/21 at 14:45; Stop 08/02/21 at 14:46; Status DC Insulin Human Regular (HumuLIN R VIAL) 5 unit 1X ONCE IV Last administered on 08/02/21at 14:55; Start 08/02/21 at 14:45; Stop 08/02/21 at 14:46; Status DC Ondansetron HCl (Zofran) 4 mg PRN Q4HRS PRN IVP NAUSEA/VOMITING; Start 08/02/21 at 16:30 Tramadol HCl (Ultram) 50 mg PRN Q6HRS PRN PO PAIN Last administered on 08/03/21at 21:35; Start 08/02/21 at 16:30 Tamsulosin HCl (Flomax) 0.4 mg QHS PO Last administered on 08/03/21at 21:26; Start 08/02/21 at 21:00 Insulin Glargine (Lantus Syringe) 30 unit BID SQ Last administered on 08/04/21at 09:15; Start 08/02/21 at 21:00 Insulin Human Lispro (HumaLOG) 0-9 UNITS TIDWMEALS SQ Last administered on 08/04/21at 08:54; Start 08/02/21 at 17:00 Dextrose (Dextrose 50%-Water Syringe) 12.5 gm PRN Q15MIN PRN IV SEE COMMENTS; Start 08/02/21 at 16:30 Dextrose (Iv Dextrose 5%) 250 ml PRN Q15MIN PRN IV SEE COMMENTS; Start 08/02/21 at 16:30 Insulin Human Lispro (HumaLOG) 4 units TIDAC SQ Last administered on 08/04/21at 07:30; Start 08/02/21 at 16:30 Ceftriaxone Sodium (Rocephin) 2 gm Q24H IVP Last administered on 08/04/21at 09: 30; Start 08/03/21 at 10:00 Fentanyl Citrate (Fentanyl 2ml Vial) 25 mcg PRN Q3HRS PRN IVP SEVERE PAIN 7-10; Start 08/02/21 at 16:30 Hydralazine HCl (Apresoline Inj) 10 mg PRN Q4HRS PRN IVP ELEVATED BP, SEE COMMENTS; Start 08/02/21 at 16:30 Lisinopril (Prinivil) 20 mg DAILY PO Last administered on 08/04/21at 08:48; Start 08/03/21 at 09:00 Metoprolol Tartrate (Lopressor) 25 mg BID PO Last administered on 08/04/21at 08:49; Start 08/02/21 at 21:00 Linagliptin (Tradjenta) 5 mg DAILY PO Last administered on 08/04/21at 08:49; Start 08/03/21 at 09:00 Insulin Human Lispro (HumaLOG) 23 units 1X ONCE SQ Last administered on 08/02/21at 21:10; Start 08/02/21 at 19:00; Stop 08/02/21 at 19:01; Status DC Aspirin (Rico Aspirin) 325 mg 1X ONCE PO Last administered on 08/03/21at 10:13; Start 08/03/21 at 10:30; Stop 08/03/21 at 10:31; Status DC Atorvastatin Calcium (Lipitor) 40 mg 1X ONCE PO Last administered on 08/03/21at 10:13; Start 08/03/21 at 10:00; Stop 08/03/21 at 10:01; Status DC Aspirin (Ecotrin) 81 mg DAILYWBKFT PO Last administered on 08/04/21at 08:48; Start 08/04/21 at 08:00 Active Scripts Active Tramadol Hcl 50 Mg Tablet 50 Mg PO Q6HRS PRN Reported Pravastatin Sodium 20 Mg Tablet 1 Tab PO DAILY Actos (Pioglitazone Hcl) 15 Mg Tablet 1 Tab PO DAILY 30 Days Metformin Hcl 500 Mg Tablet 500 Mg PO BIDWMEALS Xarelto (Rivaroxaban) 10 Mg Tablet 1 Tab PO DAILY 7 Days Vitals/I & O Vital Sign - Last 24 Hours 08/03/21 08/03/21 08/03/21 08/03/21 11:00 12:52 14:00 15:00 Temp 98.0 97.8 98.0 97.8 Pulse 71 78 Resp 16 18 18 16 B/P (MAP) 164/76 (105) 143/55 (84) Pulse Ox 96 96 99 99 O2 Delivery Room Air Room Air Room Air Room Air 08/03/21 08/03/21 08/03/21 08/03/21 19:20 20:20 21:27 21:35 Pulse 74 Resp 18 B/P (MAP) 158/63 O2 Delivery Room Air Room Air Room Air 08/03/21 08/04/21 08/04/21 08/04/21 23:07 03:14 07:00 08:48 Temp 98.3 98.1 98.3 98.3 98.1 98.3 Pulse 71 74 80 80 Resp 20 16 16 B/P (MAP) 130/71 (90) 137/64 (88) 180/86 (117) 180/86 Pulse Ox 98 95 96 O2 Delivery Room Air Room Air Room Air 08/04/21 08:49 Pulse 80 B/P (MAP) 180/86 Intake and Output 08/03/21 08/03/21 08/04/21 15:00 23:00 07:00 Intake Total 480 ml 120 ml 400 ml Output Total 1000 ml 950 ml Balance -520 ml 120 ml -550 ml Images Carotid Doppler sonogram, 08/04. HISTORY: Stroke. Atherosclerosis. TECHNIQUE: Lange scale and color Doppler sonographic evaluation of the neck with spectral waveform analysis was performed and static images are submitted for review. FINDINGS: The peak systolic velocity within the right common carotid artery is 95 cm/sec. The peak systolic velocity within the right internal carotid artery is 87 cm/sec and the end diastolic velocity within the right internal carotid artery is 32 cm/sec. The right ICA/CCA ratio is 1.1. The peak systolic velocity within the left common carotid artery is 75 cm/sec. The peak systolic velocity within the left internal carotid artery is 85 cm/sec and the end diastolic velocity within the left internal carotid artery is 31 cm/sec. The left ICA/CCA ratio is 1.1. There is normal antegrade flow within both vertebral arteries. IMPRESSION: Doppler findings consistent with less than 50 percent stenosis involving the internal carotid arteries. CT head, 08/03 No intracranial hemorrhage. No significant midline shift. Ventricles and sulci are globally prominent. Scattered foci of low attenuation within the white matter. IMPRESSION: * No acute intracranial hemorrhage. * Scattered regions of low attenuation within the white matter. Non-specific in nature but a common finding and frequently secondary to small vessel ischemic disease. * Report called to the patient's floor at 9:46 AM on date of exam. Justicifation of Admission Dx: Justifications for Admission: Justification of Admission Dx: N/A NOLAN VAZQUEZ MD Aug 04, 2021 10:08
[2021-08-04 11:00] VITALS: BP 122/62
--- NOTE | 2021-08-04 11:01 | PDOC ---
[facility] PROGRESS NOTE Date of Service DOS: DATE: 08/04/21 TIME: 10:58 Chief Complaint Chief Complaint Assessment/Plan Right pyelonephritis - etiology of abdominal pain. rocephin IV, fluids, flomax HHNKS - hyperglycemic, non-ketotic, will give aggressive IVF and insulin Hyponatremia - due to hyperglycemia, will trend Hypokalemia - due to hyperglycemia, will correct with insulin and fluids RAISA - vasomotor nephropathy from hyperglycemia, will hydrate, monitor UOP DM2 - will place back on insulin. He should be on triple therapy given his A1c greater than 8. Advised to use Humulin-N BID and Humulin R with meals outpatient H/o A-Fib - during left knee surgery previously, been on metoprolol BID since, no further episodes HLD - statin HTN urgency - will give prn hydralazine, cont home JOLEEN and toprol New onset right-sided weakness, rule out CVApending neuro evaluation and CT head results FEN - ADA diet PPX - lovenox FULL CODE DIspo - inpatient for above History of Present Illness History of Present Illness 55 year old male w/ PMHx DM2, arthritis, A-Fib, HLD, HTN, neuropathy who comes to ED from [facility] c/o right lower back and right lower quadrant abdominal pain. He has had pain for the last day with polyuria and polydipsia. Denies a history of kidney stones in the past, denies any hematuria dysuria. Says the pain is in his right lower quadrant is always dull but intermittently sharp and radiates to his right flank. He said he had a subjective fever yesterday. He does note he had a right ureteral surgery as a child and he and his father have both had urinary tract infections occasionally over the lives. He does note his blood sugar and blood pressure have been running high over the last day as well. When he used to take insulin his blood sugars usually run between 180 and 200, used to take 35units lantus twice daily. He notes on outpatient follow-up he was told to stop taking insulin after his A1c returned at 11 and was placed on Metformin and Actos a few weeks ago. He notes he is in the process of trying to move to [place]. He used to receive most of his health care in [place] but has been traveling around the country recently. He moved to [place] to be with a woman and has been depressed after the break-up and is getting help with the [employer] while he is working on transitioning to [place] to live with his cousin In ED blood pressure to be 203/110. WBC 8.9, Hb 13.3, platelets 240, NA 129, K5.4, BUN 24, CR 1.3, glucose 725 no anion gap, LFTs within normal laboratory limits, magnesium 2, phosphorus 3.2, a lbumin 3.8, lipase 130, urinalysis with glucosuria and leukocyte esterase positive. CT abdomen pelvis with concern for pyelonephritis right kidney no nephrolithiasis. Multiple renal lesions likely cysts and left adrenal nodule. Given IVF, antibiotics, insulin and admitted for further care. 08/03/2021 No acute events overnight. Patient seen examined bedside. This morning patient apparently stated that he had right-sided numbness and tingling's and some weakness in his upper extremity. Stroke code was called around [address] head was ordered. Pending neuro evaluation. One-time dose of aspirin 325 mg and atorvastatin was given. Further questioning patient stated that he was supposed to be on Xarelto for his atrial fibrillation, but he has not been sara ing this medication. Patient's chart, labs, images were reviewed and discussed with RN 08/04 Patient evaluated examined at bedside. No major complaints today. Handfull of work-up including MRI echo to be done. Neurology following. Therapy modalities. Will have better idea of plan moving forward once work-up completed. Vitals/I&O Vitals/I&O: Vital Signs Date Time Temp Pulse Resp B/P (MAP) Pulse Ox O2 Delivery O2 Flow Rate FiO2 08/04/21 08:49 80 180/86 08/04/21 07:00 98.3 16 96 Room Air 98.3 I & O 08/03/21 08/03/21 08/04/21 15:00 23:00 07:00 Intake Total 480 ml 120 ml 400 ml Output Total 1000 ml 950 ml Balance -520 ml 120 ml -550 ml Physical Exam General: Alert, Oriented X3, Cooperative, moderate distress Heart: Regular rate Lungs: Clear Abdomen: Normal bowel sounds, Soft, No hepatosplenomegaly, No masses, Other (Right flank tenderness and suprapubic tenderness) Extremities: Other (4 by centimeter lipoma mid back slightly tender) Skin: No rashes, No breakdown, No significant lesion Labs Labs: Laboratory Tests Test 08/03/21 12:02 08/03/21 17:13 08/03/21 20:53 08/04/21 06:40 Glucose (Fingerstick) 257 mg/dL (70-99) 321 mg/dL (70-99) 159 mg/dL (70-99) Sodium Level 138 mmol/L (136-145) Potassium Level 3.8 mmol/L (3.5-5.1) Chloride Level 105 mmol/L (98-107) Carbon Dioxide Level 28 mmol/L (21-32) Anion Gap 5 (6-14) Blood Urea Nitrogen 28 mg/dL (8-26) Creatinine 0.9 mg/dL (0.7-1.3) Estimated GFR (Cockcroft-Gault) 87.6 Glucose Level 176 mg/dL (70-99) Calcium Level 8.3 mg/dL (8.5-10.1) Test 08/04/21 07:59 Glucose (Fingerstick) 182 mg/dL (70-99) Assessment and Plan Assessmemt and Plan Problems Medical Problems: (1) Hyperglycemia due to type 2 diabetes mellitus Status: Acute (2) Pyelonephritis of right kidney Status: Acute Comment Review of Relevant I have reviewed the following items lainey (where applicable) has been applied. Medications: Current Medications Medications (Trade) Dose Ordered Sig/Norma Route PRN Reason Start Time Stop Time Status Last Admin Dose Admin Aspirin (Ecotrin) 81 mg DAILYWBKFT PO 08/04/21 08:00 08/04/21 08:48 Justifications for Admission Other Justification JIMBO CAMPOS MD Aug 04, 2021 11:01
--- NOTE | 2021-08-04 12:25 | RAD ---
EXAM: Brain MRI without contrast. HISTORY: Stroke. TECHNIQUE: Multiplanar, multisequence magnetic resonance imaging of the brain was performed without c ontrast. COMPARISON: CT dated 08/03/2021. FINDINGS: There is a focus of restricted diffusion within the left thalamus, consistent with an acute infarct. There is no mass effect or midline shift. There is no hemorrhage. The ventricles are enlarg ed, likely due to cerebral volume loss. There are a few nonspecific foci of signal change within the cerebral white matter, likely due to chronic small vessel disease in a patient of this age. The orbits are unremarkable. There is left maxillary sinus predominant paranasal sinus mucosal thicke rajan. There is fluid within the mastoid air cells. There are normal flow voids within the cerebral ve ssels. There is no suspicious calvarial lesion. IMPRESSION: 1. 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 2. Nonspecific focal areas of signal change within the cerebral white matter, most commonly due to ch ronic small vessel disease in patients of this age. 3. Enlarged ventricles. This appears to be appropriate for the degree of cerebral volume loss and is advanced for patient age. Findings were discussed with Portia, the nurse caring for the patient, at 1215 hours on 08/04/2021. FOR INTERNAL CODING PURPOSES RESULT CODE: (C) Electronically signed by: Chantel Bee MD (08/04/2021 12:23 PM) [facility]
--- NOTE | 2021-08-04 13:45 | NUR ---
Call placed to Dr. Donnelly regarding results of brain MRI (small acute infarct left thalamus), no new orders received.
[2021-08-04 15:00] VITALS: BP 133/76
--- NOTE | 2021-08-04 16:49 | CARD ---
MR#: [id number] Date of Study: 08/04/2021 Ordering Physician: GRACE TAMAYO, Referring Physician: GRACE TAMAYO Tech: Marisabel Parra [facility] APPROVED REPORT EXAM: Two-dimensional and M-mode echocardiogram with Doppler and color Doppler. Other Information Quality : AverageHR: 79bpm INDICATION CVA/TIA Atrial Fibrillation RISK FACTORS Hypertension Obesity 2D DIMENSIONS RVDd4.0 (2.9-3.5cm)Left Atrium(2D)4.6 (1.6-4.0cm) IVSd1.6 (0.7-1.1cm)Aortic Root(2D)3.5 (2.0-3.7cm) LVDd5.4 (3.9-5.9cm)LVOT Diameter2.3 (1.8-2.4cm) PWd1.5 (0.7-1.1cm)LVDs3.7 (2.5-4.0cm) FS (%) 30.5 %SV80.5 ml LVEF(%)57.4 (>50%) Aortic Valve AoV Peak Silas.149.7cm/sAoV VTI30.7cm AO Peak GR.9.0mmHgLVOT Peak Silas.87.8cm/s AO Mean GR.4mmHgAVA (VMAX)2.43cm2 Mitral Valve MV E Drwdznyc95.6cm/sMV DECEL [id number] MV A Mdavhabo40.6cm/sE/A Ratio0.9 Pulmonary Valve PV Peak Ysdtqddq08.2cm/s LEFT VENTRICLE The left ventricle is normal size. There is moderate concentric left ventricular hypertrophy. The lef t ventricular systolic function is normal and the ejection fraction is within normal range. Estimated ejection fraction 60%. There is normal LV segmental wall motion. Transmitral Doppler flow pattern is Grade I-abnormal relaxation pattern. No left ventricle thrombus noted on this study. RIGHT VENTRICLE The right ventricle is borderline dilated. There is normal right ventricular wall thickness. The righ t ventricular systolic function is normal. ATRIA The left atrium size is normal. The right atrium is borderline dilated. The interatrial septum is int act with no evidence for an atrial septal defect or patent foramen ovale as noted on 2-D or Doppler i maging. AORTIC VALVE The aortic valve is normal in structure and function. Doppler and Color Flow revealed no significant aortic regurgitation. There is no significant aortic valvular stenosis. MITRAL VALVE The mitral valve is normal in structure and function. There is no evidence of mitral valve prolapse. There is no mitral valve stenosis. Doppler and Color-flow revealed trace to mild mitral regurgitation . TRICUSPID VALVE The tricuspid valve is normal in structure and function. Doppler and Color Flow revealed no tricuspid valve regurgitation noted. There is no tricuspid valve stenosis. PULMONIC VALVE Doppler and Color Flow revealed no pulmonic valvular regurgitation. There is no pulmonic valvular charissa nosis. GREAT VESSELS The aortic root is normal in size. The ascending aorta is normal in size. The IVC is normal in size a nd collapses >50% with inspiration. PERICARDIAL EFFUSION There is no evidence of significant pericardial effusion. Critical Notification Critical Value: No <Conclusion> There is moderate concentric left ventricular hypertrophy. The left ventricular systolic function is normal and the ejection fraction is within normal range. E stimated ejection fraction 60%. There is normal LV segmental wall motion. Signed by : Corey Tellez, Electronically Approved : 08/04/2021 16:49:01
[2021-08-04 19:00] VITALS: BP 167/83
[2021-08-04] MEDS: LACTOBACILLUS RHAMNOSUS GG 1 CAPSULE. PO SCH (21:33)
[2021-08-04] MEDS: traMADol 50 MG TABLET PO PRN (21:34)
[2021-08-04] MEDS: TAMSULOSIN 0.4 MG CAP.ER.24H. PO SCH (21:34)
[2021-08-04 23:00] VITALS: BP 173/69
[2021-08-05 03:36] VITALS: BP 157/77
[2021-08-05 07:00] VITALS: BP 159/73
[2021-08-05] MEDS: ASPIRIN ENTERIC COATED 81 MG TABLET.DR. PO SCH (08:00)
[2021-08-05] MEDS: LACTOBACILLUS RHAMNOSUS GG 1 CAPSULE. PO SCH ×2 (08:15→21:01)
[2021-08-05] MEDS: LISINOPRIL 20 MG TABLET PO SCH (08:15)
[2021-08-05] MEDS: LINAGLIPTIN 5 MG TABLET PO SCH (08:16)
[2021-08-05] MEDS: METOPROLOL TART IMMED RELEASE 25 MG TABLET. PO SCH ×2 (08:16→21:02)
[2021-08-05] MEDS: INSULIN LISPRO 300 UNITS/3 ML VIAL. SQ SCH ×5 (08:20→17:27)
[2021-08-05 08:40] LABS: CALCIUM 8.6 mg/dL (8.5-10.1); CREATININE 0.9 mg/dL (0.7-1.3); GFR 87.6; POTASSIUM 4.2 mmol/L (3.5-5.1)
[2021-08-05] MEDS: INSULIN GLARGINE SYRINGE. SQ SCH ×2 (08:59→21:07)
[2021-08-05] MEDS: cefTRIAXone IV Push 2 GM VIAL. IVP SCH (09:50)
--- NOTE | 2021-08-05 09:56 | PDOC ---
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 Pyelonephritis Diabetic neuropathy Hyperlipidemia, lipid profile actually looks good Plan Aspirin, increase dose to 325 mg daily. The location of this infarct is consistent with small-vessel disease rather than embolic phenomenon so I would hold off on restarting anticoagulation Rehabilitation modalities, needs inpatient, is self-pay Subjective No new complaints Objective Vital Signs Date Time Temp Pulse Resp B/P (MAP) Pulse Ox O2 Delivery O2 Flow Rate FiO2 08/05/21 08:16 74 159/73 08/05/21 08:00 Room Air 08/05/21 07:00 98.1 18 97 98.1 Intake and Output 08/05/21 07:00 Intake Total 1360 ml Output Total 1130 ml Balance 230 ml Intake Oral 1360 ml Output Urine Total 1130 ml PHYSICAL EXAM Alert. Oriented to time, place and person. PERRL. EOMI. CN: no focal findings. Muscle tone: normal. Muscle strength: 4/5, weaker on the right DTR: 1+ Plantar reflex: Flexor Gait: not examined in bed. Sensory exam: Stocking loss, also decreased in right face No cerebellar signs elicited. Review of Relevant I have reviewed the following items lainey (where applicable) has been applied. Labs Laboratory Tests Test 08/03/21 12:02 08/03/21 17:13 08/03/21 20:53 08/04/21 06:40 Glucose (Fingerstick) 257 mg/dL (70-99) 321 mg/dL (70-99) 159 mg/dL (70-99) Sodium Level 138 mmol/L (136-145) Potassium Level 3.8 mmol/L (3.5-5.1) Chloride Level 105 mmol/L (98-107) Carbon Dioxide Level 28 mmol/L (21-32) Anion Gap 5 (6-14) Blood Urea Nitrogen 28 mg/dL (8-26) Creatinine 0.9 mg/dL (0.7-1.3) Estimated GFR (Cockcroft-Gault) 87.6 Glucose Level 176 mg/dL (70-99) Calcium Level 8.3 mg/dL (8.5-10.1) Test 08/04/21 07:59 08/04/21 12:39 08/04/21 16:47 08/04/21 20:36 Glucose (Fingerstick) 182 mg/dL (70-99) 172 mg/dL (70-99) 238 mg/dL (70-99) 280 mg/dL (70-99) Test 08/05/21 07:18 08/05/21 07:25 Glucose (Fingerstick) 190 mg/dL (70-99) Sodium Level 137 mmol/L (136-145) Potassium Level 4.2 mmol/L (3.5-5.1) Chloride Level 103 mmol/L (98-107) Carbon Dioxide Level 29 mmol/L (21-32) Anion Gap 5 (6-14) Blood Urea Nitrogen 27 mg/dL (8-26) Creatinine 0.9 mg/dL (0.7-1.3) Estimated GFR (Cockcroft-Gault) 87.6 Glucose Level 196 mg/dL (70-99) Calcium Level 8.6 mg/dL (8.5-10.1) Laboratory Tests Test 08/04/21 12:39 08/04/21 16:47 08/04/21 20:36 08/05/21 07:18 Glucose (Fingerstick) 172 mg/dL (70-99) 238 mg/dL (70-99) 280 mg/dL (70-99) 190 mg/dL (70-99) Test 08/05/21 07:25 Sodium Level 137 mmol/L (136-145) Potassium Level 4.2 mmol/L (3.5-5.1) Chloride Level 103 mmol/L (98-107) Carbon Dioxide Level 29 mmol/L (21-32) Anion Gap 5 (6-14) Blood Urea Nitrogen 27 mg/dL (8-26) Creatinine 0.9 mg/dL (0.7-1.3) Estimated GFR (Cockcroft-Gault) 87.6 Glucose Level 196 mg/dL (70-99) Calcium Level 8.6 mg/dL (8.5-10.1) Microbiology 08/02/21 Urine Culture - Final, Complete Beta Strep Group B Medications Current Medications Fentanyl Citrate (Fentanyl 2ml Vial) 75 mcg 1X ONCE IVP Last administered on 08/02/21at 11:54; Start 08/02/21 at 12:15; Stop 08/02/21 at 12:16; Status DC Sodium Chloride 1,000 ml @ 1,000 mls/hr 1X ONCE IV Last administered on 08/02/21at 11:45; Start 08/02/21 at 11:45; Stop 08/02/21 at 12:44; Status DC Ondansetron HCl (Zofran) 4 mg 1X ONCE IVP Last administered on 08/02/21at 11:56; Start 08/02/21 at 12:15; Stop 08/02/21 at 12:16; Status DC Iohexol (Omnipaque 300 Mg/ml) 75 ml 1X ONCE IV Last administered on 08/02/21at 12:40; Start 08/02/21 at 12:00; Stop 08/02/21 at 12:01; Status DC Info (CONTRAST GIVEN -- Rx MONITORING) 1 each PRN DAILY PRN MC SEE COMMENTS; Start 08/02/21 at 12:15; Stop 08/04/21 at 12:14; Status DC Ceftriaxone Sodium (Rocephin) 2 gm 1X ONCE IVP Last administered on 08/02/21at 14:55; Start 08/02/21 at 14:30; Stop 08/02/21 at 14:31; Status DC Sodium Chloride 1,000 ml @ 1,000 mls/hr 1X ONCE IV Last administered on 08/02/21at 14:52; Start 08/02/21 at 14:15; Stop 08/02/21 at 15:14; Status DC Sodium Chloride 1,000 ml @ 1,000 mls/hr 1X ONCE IV Last administered on 08/02/21at 18:11; Start 08/02/21 at 14:15; Stop 08/02/21 at 15:14; Status DC Morphine Sulfate (Morphine Sulfate) 4 mg 1X ONCE IV Last administered on 08/02/21at 14:53; Start 08/02/21 at 14:45; Stop 08/02/21 at 14:46; Status DC Insulin Human Regular (HumuLIN R VIAL) 5 unit 1X ONCE IV Last administered on 08/02/21at 14:55; Start 08/02/21 at 14:45; Stop 08/02/21 at 14:46; Status DC Ondansetron HCl (Zofran) 4 mg PRN Q4HRS PRN IVP NAUSEA/VOMITING; Start 08/02/21 at 16:30 Tramadol HCl (Ultram) 50 mg PRN Q6HRS PRN PO PAIN Last administered on 08/04/21at 21:34; Start 08/02/21 at 16:30 Tamsulosin HCl (Flomax) 0.4 mg QHS PO Last administered on 08/04/21at 21:34; Start 08/02/21 at 21:00 Insulin Glargine (Lantus Syringe) 30 unit BID SQ Last administered on 08/05/21at 08:59; Start 08/02/21 at 21:00 Insulin Human Lispro (HumaLOG) 0-9 UNITS TIDWMEALS SQ Last administered on 08/05/21at 08:20; Start 08/02/21 at 17:00 Dextrose (Dextrose 50%-Water Syringe) 12.5 gm PRN Q15MIN PRN IV SEE COMMENTS; Start 08/02/21 at 16:30 Dextrose (Iv Dextrose 5%) 250 ml PRN Q15MIN PRN IV SEE COMMENTS; Start 08/02/21 at 16:30 Insulin Human Lispro (HumaLOG) 4 units TIDAC SQ Last administered on 08/04/21at 17:10; Start 08/02/21 at 16:30 Ceftriaxone Sodium (Rocephin) 2 gm Q24H IVP Last administered on 08/05/21at 09:50; Start 08/03/21 at 10:00 Fentanyl Citrate (Fentanyl 2ml Vial) 25 mcg PRN Q3HRS PRN IVP SEVERE PAIN 7-10; Start 08/02/21 at 16:30 Hydralazine HCl (Apresoline Inj) 10 mg PRN Q4HRS PRN IVP ELEVATED BP, SEE COMMENTS; Start 08/02/21 at 16:30 Lisinopril (Prinivil) 20 mg DAILY PO Last administered on 08/05/21at 08:15; Start 08/03/21 at 09:00 Metoprolol Tartrate (Lopressor) 25 mg BID PO Last administered on 08/05/21at 08:16; Start 08/02/21 at 21:00 Linagliptin (Tradjenta) 5 mg DAILY PO Last administered on 08/05/21at 08:16; Start 08/03/21 at 09:00 Insulin Human Lispro (HumaLOG) 23 units 1X ONCE SQ Last administered on 08/02/21at 21:10; Start 08/02/21 at 19:00; Stop 08/02/21 at 19:01; Status DC Aspirin (Rico Aspirin) 325 mg 1X ONCE PO Last administered on 08/03/21at 10:13; Start 08/03/21 at 10:30; Stop 08/03/21 at 10:31; Status DC Atorvastatin Calcium (Lipitor) 40 mg 1X ONCE PO Last administered on 08/03/21at 10:13; Start 08/03/21 at 10:00; Stop 08/03/21 at 10:01; Status DC Aspirin (Ecotrin) 81 mg DAILYWBKFT PO Last administered on 08/05/21at 08:00; Start 08/04/21 at 08:00; Stop 08/05/21 at 08:39; Status DC Lactobacillus Rhamnosus (Culturelle) 1 cap BID PO Last administered on 08/05/21at 08:15; Start 08/04/21 at 21:00 Aspirin (Rico Aspirin) 325 mg DAILYWBKFT PO ; Start 08/06/21 at 08:00 Active Scripts Active Tramadol Hcl 50 Mg Tablet 50 Mg PO Q6HRS PRN Reported Pravastatin Sodium 20 Mg Tablet 1 Tab PO DAILY Actos (Pioglitazone Hcl) 15 Mg Tablet 1 Tab PO DAILY 30 Days Metformin Hcl 500 Mg Tablet 500 Mg PO BIDWMEALS Xarelto (Rivaroxaban) 10 Mg Tablet 1 Tab PO DAILY 7 Days Vitals/I & O Vital Sign - Last 24 Hours 08/04/21 08/04/21 08/04/21 08/04/21 11:00 15:00 19:00 20:00 Temp 97.7 97.7 98.0 97.7 97.7 98.0 Pulse 71 73 77 Resp 16 16 20 B/P (MAP) 122/62 (82) 133/76 (95) 167/83 (111) Pulse Ox 98 98 100 O2 Delivery Room Air Room Air Room Air Room Air 08/04/21 08/04/21 08/04/21 08/04/21 21:34 21:34 22:04 23:00 Temp 98.6 98.6 Pulse 77 69 Resp 18 18 20 B/P (MAP) 167/83 173/69 (103) Pulse Ox 100 100 99 O2 Delivery Room Air Room Air Room Air 08/05/21 08/05/21 08/05/21 08/05/21 03:36 07:00 08:00 08:15 Temp 98.3 98.1 98.3 98.1 Pulse 73 74 74 Resp 20 18 B/P (MAP) 157/77 (103) 159/73 (101) 159/73 Pulse Ox 98 97 O2 Delivery Room Air Room Air Room Air 08/05/21 08:16 Pulse 74 B/P (MAP) 159/73 Intake and Output 08/04/21 08/04/21 08/05/21 15:00 23:00 07:00 Intake Total 240 ml 360 ml 760 ml Output Total 350 ml 350 ml 430 ml Balance -110 ml 10 ml 330 ml Images Brain MRI without contrast. HISTORY: Stroke. TECHNIQUE: Multiplanar, multisequence magnetic resonance imaging of the brain was performed without contrast. COMPARISON: CT dated 08/03/2021. FINDINGS: There is a focus of restricted diffusion within the left thalamus, consistent with an acute infarct. There is no mass effect or midline shift. There is no hemorrhage. The ventricles are enlarged, likely due to cerebral volume loss. There are a few nonspecific foci of signal change within the cerebral white matter, likely due to chronic small vessel disease in a patient of this age. The orbits are unremarkable. There is left maxillary sinus predominant paranasal sinus mucosal thickening. There is fluid within the mastoid air cells. There are normal flow voids within the cerebral vessels. There is no suspicious calvarial lesion. IMPRESSION: 1. 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 2. Nonspecific focal areas of signal change within the cerebral white matter, most commonly due to chronic small vessel disease in patients of this age. 3. Enlarged ventricles. This appears to be appropriate for the degree of cerebral volume loss and is advanced for patient age. Echocardiogram LEFT VENTRICLE The left ventricle is normal size. There is moderate concentric left ventricular hypertrophy. The left ventricular systolic function is normal and the ejection fraction is within normal range. Estimated ejection fraction 60%. There is normal LV segmental wall motion. Transmitral Doppler flow pattern is Grade I- abnormal relaxation pattern. No left ventricle thrombus noted on this study. RIGHT VENTRICLE The right ventricle is borderline dilated. There is normal right ventricular wall thickness. The right ventricular systolic function is normal. ATRIA The left atrium size is normal. The right atrium is borderline dilated. The interatrial septum is intact with no evidence for an atrial septal defect or patent foramen ovale as noted on 2-D or Doppler imaging. AORTIC VALVE The aortic valve is normal in structure and function. Doppler and Color Flow revealed no significant aortic regurgitation. There is no significant aortic valvular stenosis. MITRAL VALVE The mitral valve is normal in structure and function. There is no evidence of mitral valve prolapse. There is no mitral valve stenosis. Doppler and Color-flow revealed trace to mild mitral regurgitation. TRICUSPID VALVE The tricuspid valve is normal in structure and function. Doppler and Color Flow revealed no tricuspid valve regurgitation noted. There is no tricuspid valve stenosis. PULMONIC VALVE Doppler and Color Flow revealed no pulmonic valvular regurgitation. There is no pulmonic valvular stenosis. GREAT VESSELS The aortic root is normal in size. The ascending aorta is normal in size. The IVC is normal in size and collapses >50% with inspiration. PERICARDIAL EFFUSION There is no evidence of significant pericardial effusion. Critical Notification Critical Value: No <Conclusion> There is moderate concentric left ventricular hypertrophy. The left ventricular systolic function is normal and the ejection fraction is within normal range. Estimated ejection fraction 60%. There is normal LV segmental wall motion. Justicifation of Admission Dx: Justifications for Admission: Justification of Admission Dx: N/A NOLAN VAZQUEZ MD Aug 05, 2021 09:56
[2021-08-05 11:00] VITALS: BP 132/64
[2021-08-05] MEDS: traMADol 50 MG TABLET PO PRN ×2 (13:39→21:02)
--- NOTE | 2021-08-05 13:47 | PDOC ---
[employer] PROGRESS NOTE Date of Service DOS: DATE: 08/05/21 TIME: 13:46 Chief Complaint Chief Complaint Assessment/Plan Right pyelonephritis - etiology of abdominal pain. rocephin IV, fluids, flomax HHNKS - hyperglycemic, non-ketotic, will give aggressive IVF and insulin Hyponatremia - due to hyperglycemia, will trend Hypokalemia - due to hyperglycemia, will correct with insulin and fluids RAISA - vasomotor nephropathy from hyperglycemia, will hydrate, monitor UOP DM2 - will place back on insulin. He should be on triple therapy given his A1c greater than 8. Advised to use Humulin-N BID and Humulin R with meals outpatient H/o A-Fib - during left knee surgery previously, been on metoprolol BID since, no further episodes HLD - statin HTN urgency - will give prn hydralazine, cont home JOLEEN and toprol New onset right-sided weakness, rule out CVApending neuro evaluation and CT head results FEN - ADA diet PPX - lovenox FULL CODE DIspo - inpatient for above History of Present Illness History of Present Illness 55 year old male w/ PMHx DM2, arthritis, A-Fib, HLD, HTN, neuropathy who comes to ED from [facility] c/o right lower back and right lower quadrant abdominal pain. He has had pain for the last day with polyuria and polydipsia. Denies a history of kidney stones in the past, denies any hematuria dysuria. Says the pain is in his right lower quadrant is always dull but intermittently sharp and radiates to his right flank. He said he had a subjective fever yesterday. He does note he had a right ureteral surgery as a child and he and his father have both had urinary tract infections occasionally over the lives. He does note his blood sugar and blood pressure have been running high over the last day as well. When he used to take insulin his blood sugars usually run between 180 and 200, used to take 35units lantus twice daily. He notes on outpatient follow-up he was told to stop taking insulin after his A1c returned at 11 and was placed on Metformin and Actos a few weeks ago. He notes he is in the process of trying to move to [place]. He used to receive most of his health care in [place] but has been traveling around the country recently. He moved to [place] to be with a woman and has been depressed after the break-up and is getting help with the [employer] while he is working on transitioning to [place] to live with his cousin In ED blood pressure to be 203/110. WBC 8.9, Hb 13.3, platelets 240, NA 129, K5.4, BUN 24, CR 1.3, glucose 725 no anion gap, LFTs within normal laboratory limits, magnesium 2, phosphorus 3.2, a lbumin 3.8, lipase 130, urinalysis with glucosuria and leukocyte esterase positive. CT abdomen pelvis with concern for pyelonephritis right kidney no nephrolithiasis. Multiple renal lesions likely cysts and left adrenal nodule. Given IVF, antibiotics, insulin and admitted for further care. 08/03/2021 No acute events overnight. Patient seen examined bedside. This morning patient apparently stated that he had right-sided numbness and tingling's and some weakness in his upper extremity. Stroke code was called around [address] head was ordered. Pending neuro evaluation. One-time dose of aspirin 325 mg and atorvastatin was given. Further questioning patient stated that he was supposed to be on Xarelto for his atrial fibrillation, but he has not been sara ing this medication. Patient's chart, labs, images were reviewed and discussed with RN 08/04 Patient evaluated examined at bedside. No major complaints today. Handfull of work-up including MRI echo to be done. Neurology following. Therapy modalities. Will have better idea of plan moving forward once work-up completed. 08/05 Patient evaluated examined at bedside. No major complaints. Will definitely need placement. May be difficult with his insurance status. Otherwise follow neurology recommendations. Will discuss with social work. Vitals/I&O Vitals/I&O: Vital Signs Date Time Temp Pulse Resp B/P (MAP) Pulse Ox O2 Delivery O2 Flow Rate FiO2 08/05/21 11:00 98.2 68 18 132/64 (86) 99 Room Air 98.2 I & O 08/04/21 08/04/21 08/05/21 15:00 23:00 07:00 Intake Total 240 ml 360 ml 760 ml Output Total 350 ml 350 ml 430 ml Balance -110 ml 10 ml 330 ml Physical Exam General: Alert, Oriented X3, Cooperative, moderate distress Heart: Regular rate Lungs: Clear Abdomen: Normal bowel sounds, Soft, No hepatosplenomegaly, No masses, Other (Right flank tenderness and suprapubic tenderness) Extremities: Other (4 by centimeter lipoma mid back slightly tender) Skin: No rashes, No breakdown, No significant lesion Labs Labs: Laboratory Tests Test 08/04/21 16:47 08/04/21 20:36 08/05/21 07:18 08/05/21 07:25 Glucose (Fingerstick) 238 mg/dL (70-99) 280 mg/dL (70-99) 190 mg/dL (70-99) Sodium Level 137 mmol/L (136-145) Potassium Level 4.2 mmol/L (3.5-5.1) Chloride Level 103 mmol/L (98-107) Carbon Dioxide Level 29 mmol/L (21-32) Anion Gap 5 (6-14) Blood Urea Nitrogen 27 mg/dL (8-26) Creatinine 0.9 mg/dL (0.7-1.3) Estimated GFR (Cockcroft-Gault) 87.6 Glucose Level 196 mg/dL (70-99) Calcium Level 8.6 mg/dL (8.5-10.1) Test 08/05/21 11:08 Glucose (Fingerstick) 187 mg/dL (70-99) Assessment and Plan Assessmemt and Plan Problems Medical Problems: (1) Hyperglycemia due to type 2 diabetes mellitus Status: Acute (2) Pyelonephritis of right kidney Status: Acute Comment Review of Relevant I have reviewed the following items lainey (where applicable) has been applied. Medications: Current Medications Medications (Trade) Dose Ordered Sig/Norma Route PRN Reason Start Time Stop Time Status Last Admin Dose Admin Lactobacillus Rhamnosus (Culturelle) 1 cap BID PO 08/04/21 21:00 08/05/21 08:15 Justifications for Admission Other Justification JIMBO CAMPOS MD Aug 05, 2021 13:47
[2021-08-05] MEDS ORDERED: ACETAMINOPHEN 325 MG TABLET. PO PRN (14:30)
[2021-08-05 15:00] VITALS: BP 128/64
--- NOTE | 2021-08-05 16:33 | NUR ---
SS following for discharge planning. SS reviewed pt chart and discussed with pt RN. Pt is from [facility] and is currently on room air. Pt on IV Rocephin. PT/OT recommended senior living unit. PO diet. SS met with pt in room and discussed discharge planning. Pt requested list of senior living unit which was provided to pt. Pt reported that he will notify SS of decision. Pt reported that he is vaccinated for COVID19. SS will continue to follow for discharge planning.
[2021-08-05 19:00] VITALS: BP 167/77
[2021-08-05] MEDS: TAMSULOSIN 0.4 MG CAP.ER.24H. PO SCH (21:02)
[2021-08-05 23:00] VITALS: BP 155/70
[2021-08-06] VITALS (7 sets, daily range): BP systolic 123–187; BP diastolic 68–92
[2021-08-06] MEDS: INSULIN LISPRO 300 UNITS/3 ML VIAL. SQ SCH ×6 (08:00→17:23)
[2021-08-06] MEDS: ASPIRIN 325 MG TABLET PO SCH (08:37)
[2021-08-06] MEDS: LISINOPRIL 20 MG TABLET PO SCH (08:38)
[2021-08-06] MEDS: METOPROLOL TART IMMED RELEASE 25 MG TABLET. PO SCH ×2 (08:38→22:00)
[2021-08-06] MEDS: LINAGLIPTIN 5 MG TABLET PO SCH (08:38)
[2021-08-06] MEDS: LACTOBACILLUS RHAMNOSUS GG 1 CAPSULE. PO SCH ×2 (08:38→22:00)
[2021-08-06] MEDS: INSULIN GLARGINE SYRINGE. SQ SCH ×2 (08:43→21:59)
[2021-08-06] MEDS: cefTRIAXone IV Push 2 GM VIAL. IVP SCH (09:52)
--- NOTE | 2021-08-06 10:44 | PDOC ---
[employer] PROGRESS NOTE Date of Service DOS: DATE: 08/06/21 TIME: 10:43 Chief Complaint Chief Complaint Assessment/Plan Right pyelonephritis - etiology of abdominal pain. rocephin IV, fluids, flomax HHNKS - hyperglycemic, non-ketotic, will give aggressive IVF and insulin Hyponatremia - due to hyperglycemia, will trend Hypokalemia - due to hyperglycemia, will correct with insulin and fluids RAISA - vasomotor nephropathy from hyperglycemia, will hydrate, monitor UOP DM2 - will place back on insulin. He should be on triple therapy given his A1c greater than 8. Advised to use Humulin-N BID and Humulin R with meals outpatient H/o A-Fib - during left knee surgery previously, been on metoprolol BID since, no further episodes HLD - statin HTN urgency - will give prn hydralazine, cont home JOLEEN and toprol New onset right-sided weakness, rule out CVApending neuro evaluation and CT head results FEN - ADA diet PPX - lovenox FULL CODE DIspo - inpatient for above History of Present Illness History of Present Illness 55 year old male w/ PMHx DM2, arthritis, A-Fib, HLD, HTN, neuropathy who comes to ED from [facility] c/o right lower back and right lower quadrant abdominal pain. He has had pain for the last day with polyuria and polydipsia. Denies a history of kidney stones in the past, denies any hematuria dysuria. Says the pain is in his right lower quadrant is always dull but intermittently sharp and radiates to his right flank. He said he had a subjective fever yesterday. He does note he had a right ureteral surgery as a child and he and his father have both had urinary tract infections occasionally over the lives. He does note his blood sugar and blood pressure have been running high over the last day as well. When he used to take insulin his blood sugars usually run between 180 and 200, used to take 35units lantus twice daily. He notes on outpatient follow-up he was told to stop taking insulin after his A1c returned at 11 and was placed on Metformin and Actos a few weeks ago. He notes he is in the process of trying to move to [place]. He used to receive most of his health care in [place] but has been traveling around the country recently. He moved to [place] to be with a woman and has been depressed after the break-up and is getting help with the [employer] while he is working on transitioning to [place] to live with his cousin In ED blood pressure to be 203/110. WBC 8.9, Hb 13.3, platelets 240, NA 129, K5.4, BUN 24, CR 1.3, glucose 725 no anion gap, LFTs within normal laboratory limits, magnesium 2, phosphorus 3.2, a lbumin 3.8, lipase 130, urinalysis with glucosuria and leukocyte esterase positive. CT abdomen pelvis with concern for pyelonephritis right kidney no nephrolithiasis. Multiple renal lesions likely cysts and left adrenal nodule. Given IVF, antibiotics, insulin and admitted for further care. 08/03/2021 No acute events overnight. Patient seen examined bedside. This morning patient apparently stated that he had right-sided numbness and tingling's and some weakness in his upper extremity. Stroke code was called around [address] head was ordered. Pending neuro evaluation. One-time dose of aspirin 325 mg and atorvastatin was given. Further questioning patient stated that he was supposed to be on Xarelto for his atrial fibrillation, but he has not been sara ing this medication. Patient's chart, labs, images were reviewed and discussed with RN 08/04 Patient evaluated examined at bedside. No major complaints today. Handfull of work-up including MRI echo to be done. Neurology following. Therapy modalities. Will have better idea of plan moving forward once work-up completed. 08/05 Patient evaluated examined at bedside. No major complaints. Will definitely need placement. May be difficult with his insurance status. Otherwise follow neurology recommendations. Will discuss with social work. 08/06 Evaluate examined at bedside. Reports still thinking about SNF placement. Informed him we do need a decision sooner than later. We will follow up on this. Otherwise continue current. Vitals/I&O Vitals/I&O: Vital Signs Date Time Temp Pulse Resp B/P (MAP) Pulse Ox O2 Delivery O2 Flow Rate FiO2 08/06/21 08:38 76 168/75 08/06/21 08:27 98.3 16 97 Room Air 98.3 08/06/21 08:00 2.0 I & O 08/05/21 08/05/21 08/06/21 15:00 23:00 07:00 Intake Total 300 ml 300 ml Output Total 150 ml Balance 300 ml 150 ml Physical Exam General: Alert, Oriented X3, Cooperative, moderate distress Heart: Regular rate Lungs: Clear Abdomen: Normal bowel sounds, Soft, No hepatosplenomegaly, No masses, Other (Right flank tenderness and suprapubic tenderness) Extremities: Other (4 by centimeter lipoma mid back slightly tender) Skin: No rashes, No breakdown, No significant lesion Labs Labs: Laboratory Tests Test 08/05/21 11:08 08/05/21 17:05 08/05/21 20:47 08/06/21 07:33 Glucose (Fingerstick) 187 mg/dL (70-99) 179 mg/dL (70-99) 127 mg/dL (70-99) 172 mg/dL (70-99) Assessment and Plan Assessmemt and Plan Problems Medical Problems: (1) Hyperglycemia due to type 2 diabetes mellitus Status: Acute (2) Pyelonephritis of right kidney Status: Acute Comment Review of Relevant I have reviewed the following items lainey (where applicable) has been applied. Medications: Current Medications Medications (Trade) Dose Ordered Sig/Norma Route PRN Reason Start Time Stop Time Status Last Admin Dose Admin Aspirin (Rico Aspirin) 325 mg DAILYWBKFT PO 08/06/21 08:00 08/06/21 08:37 Acetaminophen (Tylenol) 650 mg PRN Q6HRS PRN PO MILD PAIN / TEMP > 100.3'F 08/05/21 14:30 08/05/21 14:23 Justifications for Admission Other Justification JIMBO CAMPOS MD Aug 06, 2021 10:44
--- NOTE | 2021-08-06 11:32 | PDOC ---
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 Myalgic pain in the right side, more musculoskeletal than neurogenic, will keep in mind the possibility of this, though Pyelonephritis Diabetic neuropathy Hyperlipidemia, lipid profile actually looks good Plan Aspirin, increase dose to 325 mg daily. The location of this infarct is consistent with small-vessel disease rather than embolic phenomenon so I would hold off on restarting anticoagulation Rehabilitation modalities, needs inpatient, is self-pay Subjective Myalgic pain as above Objective Vital Signs Date Time Temp Pulse Resp B/P (MAP) Pulse Ox O2 Delivery O2 Flow Rate FiO2 08/06/21 08:38 76 168/75 08/06/21 08:27 98.3 16 97 Room Air 98.3 08/06/21 08:00 2.0 Intake and Output 08/06/21 07:00 Intake Total 600 ml Output Total 150 ml Balance 450 ml Intake Oral 600 ml Output Urine Total 150 ml # Voids 4 PHYSICAL EXAM Alert. Oriented to time, place and person. PERRL. EOMI. CN: no focal findings. Muscle tone: normal. Muscle strength: 4/5, weaker on the right DTR: 1+ Plantar reflex: Flexor Gait: not examined in bed. Sensory exam: Stocking loss, also decreased in right face No cerebellar signs elicited. Review of Relevant I have reviewed the following items lainey (where applicable) has been applied. Labs Laboratory Tests Test 08/04/21 12:39 08/04/21 16:47 08/04/21 20:36 08/05/21 07:18 Glucose (Fingerstick) 172 mg/dL (70-99) 238 mg/dL (70-99) 280 mg/dL (70-99) 190 mg/dL (70-99) Test 08/05/21 07:25 08/05/21 11:08 08/05/21 17:05 08/05/21 20:47 Sodium Level 137 mmol/L (136-145) Potassium Level 4.2 mmol/L (3.5-5.1) Chloride Level 103 mmol/L (98-107) Carbon Dioxide Level 29 mmol/L (21-32) Anion Gap 5 (6-14) Blood Urea Nitrogen 27 mg/dL (8-26) Creatinine 0.9 mg/dL (0.7-1.3) Estimated GFR (Cockcroft-Gault) 87.6 Glucose Level 196 mg/dL (70-99) Calcium Level 8.6 mg/dL (8.5-10.1) Glucose (Fingerstick) 187 mg/dL (70-99) 179 mg/dL (70-99) 127 mg/dL (70-99) Test 08/06/21 07:33 Glucose (Fingerstick) 172 mg/dL (70-99) Laboratory Tests Test 08/05/21 17:05 08/05/21 20:47 08/06/21 07:33 Glucose (Fingerstick) 179 mg/dL (70-99) 127 mg/dL (70-99) 172 mg/dL (70-99) Microbiology 08/02/21 Urine Culture - Final, Complete Beta Strep Group B Medications Current Medications Fentanyl Citrate (Fentanyl 2ml Vial) 75 mcg 1X ONCE IVP Last administered on 08/02/21at 11:54; Start 08/02/21 at 12:15; Stop 08/02/21 at 12:16; Status DC Sodium Chloride 1,000 ml @ 1,000 mls/hr 1X ONCE IV Last administered on 08/02/21at 11:45; Start 08/02/21 at 11:45; Stop 08/02/21 at 12:44; Status DC Ondansetron HCl (Zofran) 4 mg 1X ONCE IVP Last administered on 08/02/21at 11:56; Start 08/02/21 at 12:15; Stop 08/02/21 at 12:16; Status DC Iohexol (Omnipaque 300 Mg/ml) 75 ml 1X ONCE IV Last administered on 08/02/21at 12:40; Start 08/02/21 at 12:00; Stop 08/02/21 at 12:01; Status DC Info (CONTRAST GIVEN -- Rx MONITORING) 1 each PRN DAILY PRN MC SEE COMMENTS; Start 08/02/21 at 12:15; Stop 08/04/21 at 12:14; Status DC Ceftriaxone Sodium (Rocephin) 2 gm 1X ONCE IVP Last administered on 08/02/21at 14:55; Start 08/02/21 at 14:30; Stop 08/02/21 at 14:31; Status DC Sodium Chloride 1,000 ml @ 1,000 mls/hr 1X ONCE IV Last administered on 08/02/21at 14:52; Start 08/02/21 at 14:15; Stop 08/02/21 at 15:14; Status DC Sodium Chloride 1,000 ml @ 1,000 mls/hr 1X ONCE IV Last administered on 08/02/21at 18:11; Start 08/02/21 at 14:15; Stop 08/02/21 at 15:14; Status DC Morphine Sulfate (Morphine Sulfate) 4 mg 1X ONCE IV Last administered on 08/02/21at 14:53; Start 08/02/21 at 14:45; Stop 08/02/21 at 14:46; Status DC Insulin Human Regular (HumuLIN R VIAL) 5 unit 1X ONCE IV Last administered on 08/02/21at 14:55; Start 08/02/21 at 14:45; Stop 08/02/21 at 14:46; Status DC Ondansetron HCl (Zofran) 4 mg PRN Q4HRS PRN IVP NAUSEA/VOMITING; Start 08/02/21 at 16:30 Tramadol HCl (Ultram) 50 mg PRN Q6HRS PRN PO MODERATE PAIN Last administered on 08/05/21at 21:02; Start 08/02/21 at 16:30 Tamsulosin HCl (Flomax) 0.4 mg QHS PO Last administered on 08/05/21at 21:02; Start 08/02/21 at 21:00 Insulin Glargine (Lantus Syringe) 30 unit BID SQ Last administered on 08/06/21at 08:43; Start 08/02/21 at 21:00 Insulin Human Lispro (HumaLOG) 0-9 UNITS TIDWMEALS SQ Last administered on 08/06/21at 08:00; Start 08/02/21 at 17:00 Dextrose (Dextrose 50%-Water Syringe) 12.5 gm PRN Q15MIN PRN IV SEE COMMENTS; Start 08/02/21 at 16:30; Stop 08/06/21 at 00:20; Status DC Dextrose (Iv Dextrose 5%) 250 ml PRN Q15MIN PRN IV SEE COMMENTS; Start 08/02/21 at 16:30 Insulin Human Lispro (HumaLOG) 4 units TIDAC SQ Last administered on 08/06/21 08:07; Start 08/02/21 at 16:30 Ceftriaxone Sodium (Rocephin) 2 gm Q24H IVP Last administered on 08/06/21at 09:52; Start 08/03/21 at 10:00 Fentanyl Citrate (Fentanyl 2ml Vial) 25 mcg PRN Q3HRS PRN IVP SEVERE PAIN 7-10; Start 08/02/21 at 16:30 Hydralazine HCl (Apresoline Inj) 10 mg PRN Q4HRS PRN IVP ELEVATED BP, SEE COMMENTS; Start 08/02/21 at 16:30 Lisinopril (Prinivil) 20 mg DAILY PO Last administered on 08/06/21 08:38; Start 08/03/21 at 09:00 Metoprolol Tartrate (Lopressor) 25 mg BID PO Last administered on 08/06/21at 08:38; Start 08/02/21 at 21:00 Linagliptin (Tradjenta) 5 mg DAILY PO Last administered on 08/06/21 08:38; Start 08/03/21 at 09:00 Insulin Human Lispro (HumaLOG) 23 units 1X ONCE SQ Last administered on 08/02/21at 21:10; Start 08/02/21 at 19:00; Stop 08/02/21 at 19:01; Status DC Aspirin (Rico Aspirin) 325 mg 1X ONCE PO Last administered on 08/03/21at 10:13; Start 08/03/21 at 10:30; Stop 08/03/21 at 10:31; Status DC Atorvastatin Calcium (Lipitor) 40 mg 1X ONCE PO Last administered on 08/03/21at 10:13; Start 08/03/21 at 10:00; Stop 08/03/21 at 10:01; Status DC Aspirin (Ecotrin) 81 mg DAILYWBKFT PO Last administered on 08/05/21at 08:00; S tart 08/04/21 at 08:00; Stop 08/05/21 at 08:39; Status DC Lactobacillus Rhamnosus (Culturelle) 1 cap BID PO Last administered on 08/06/21 08:38; Start 08/04/21 at 21:00 Aspirin (Rico Aspirin) 325 mg DAILYWBKFT PO Last administered on 3/30/22at 08:37; Start 08/06/21 at 08:00 Acetaminophen (Tylenol) 650 mg PRN Q6HRS PRN PO MILD PAIN / TEMP > 100.3'F Last administered on 08/05/21at 14:23; Start 08/05/21 at 14:30 Active Scripts Active Tramadol Hcl 50 Mg Tablet 50 Mg PO Q6HRS PRN Reported Pravastatin Sodium 20 Mg Tablet 1 Tab PO DAILY Actos (Pioglitazone Hcl) 15 Mg Tablet 1 Tab PO DAILY 30 Days Metformin Hcl 500 Mg Tablet 500 Mg PO BIDWMEALS Xarelto (Rivaroxaban) 10 Mg Tablet 1 Tab PO DAILY 7 Days Vitals/I & O Vital Sign - Last 24 Hours 08/05/21 08/05/21 08/05/21 08/05/21 15:00 19:00 20:00 21:02 Temp 98.0 98.3 98.0 98.3 Pulse 72 70 Resp 18 20 B/P (MAP) 128/64 (85) 167/77 (107) Pulse Ox 98 95 95 O2 Delivery Room Air Room Air Room Air Room Air O2 Flow Rate 2.0 2.0 08/05/21 08/05/21 08/05/21 08/06/21 21:02 21:32 23:00 03:41 Temp 98.2 97.8 98.2 97.8 Pulse 70 66 69 Resp 20 20 B/P (MAP) 167/77 155/70 (98) 149/68 (95) Pulse Ox 95 97 98 O2 Delivery Room Air Room Air Room Air O2 Flow Rate 2.0 08/06/21 08/06/21 08/06/21 08/06/21 08:00 08:27 08:38 08:38 Temp 98.3 98.3 Pulse 76 76 76 Resp 16 B/P (MAP) 168/75 (106) 168/75 168/75 Pulse Ox 97 O2 Delivery Room Air Room Air O2 Flow Rate 2.0 Intake and Output 08/05/21 08/05/21 08/06/21 15:00 23:00 07:00 Intake Total 300 ml 300 ml Output Total 150 ml Balance 300 ml 150 ml Justicifation of Admission Dx: Justifications for Admission: Justification of Admission Dx: N/A NOLAN VAZQUEZ MD Aug 06, 2021 11:32
[2021-08-06] MEDS: traMADol 50 MG TABLET PO PRN (12:12)
--- NOTE | 2021-08-06 13:15 | NUR ---
SS following up with discharge planning. SS reviewed pt chart and discussed with pt RN. Pt is currently on room air. PO diet. PT/OT recommended senior living unit. Pt is from the [facility]. Pt is vaccinated. Pt requested referral to [facility], ; fax [phone]. [facility] screened pt's insurance and pt does NOT have any benefits for skilled rehabilitation. SS discussed with pt and pt stating that he will return to the [facility]. Physician notified. SS will continue to follow for discharge planning.
[2021-08-06] MEDS: TAMSULOSIN 0.4 MG CAP.ER.24H. PO SCH (21:59)
[2021-08-06] MEDS: CEFDINIR 300 MG CAPSULE PO SCH (22:00)
[2021-08-07 03:23] VITALS: BP 132/69
[2021-08-07 07:00] VITALS: BP 152/71
[2021-08-07] MEDS: INSULIN LISPRO 300 UNITS/3 ML VIAL. SQ SCH ×2 (08:00→08:04)
[2021-08-07 08:23] VITALS: BP 152/71
[2021-08-07] MEDS: ASPIRIN 325 MG TABLET PO SCH (08:23)
[2021-08-07] MEDS: CEFDINIR 300 MG CAPSULE PO SCH (08:24)
[2021-08-07] MEDS: METOPROLOL TART IMMED RELEASE 25 MG TABLET. PO SCH (08:24)
[2021-08-07 08:25] VITALS: BP 152/71
[2021-08-07] MEDS: LACTOBACILLUS RHAMNOSUS GG 1 CAPSULE. PO SCH (08:25)
[2021-08-07] MEDS: LINAGLIPTIN 5 MG TABLET PO SCH (08:25)
[2021-08-07] MEDS: LISINOPRIL 20 MG TABLET PO SCH (08:25)
[2021-08-07] MEDS: INSULIN GLARGINE SYRINGE. SQ SCH (09:00)
[2021-08-07] MEDS ORDERED: CEFD300C PO (10:43)
[2021-08-07] MEDS ORDERED: LISI-130 PO (10:43)
[2021-08-07] MEDS ORDERED: ASPI325T8 PO (10:43)
[2021-08-07] MEDS ORDERED: TAMS0.4C97 PO (10:43)
[2021-08-07] MEDS ORDERED: LINA5TAB PO (10:43)
[2021-08-07] MEDS ORDERED: METO25TA4 PO (10:43)
--- NOTE | 2021-08-07 10:45 | PDOC3 ---
[facility]-Discharge Summary Date of Admission: Date of Admission: Aug 02, 2021 Date of Discharge: Date of Discharge: Aug 07, 2021 Admission Diagnosis: Admitting Diagnosis: CVA Hospital Course: Hospital Course: Assessment/Plan Right pyelonephritis - etiology of abdominal pain. rocephin IV, fluids, flomax HHNKS - hyperglycemic, non-ketotic, will give aggressive IVF and insulin Hyponatremia - due to hyperglycemia, will trend Hypokalemia - due to hyperglycemia, will correct with insulin and fluids RAISA - vasomotor nephropathy from hyperglycemia, will hydrate, monitor UOP DM2 - will place back on insulin. He should be on triple therapy given his A1c greater than 8. Advised to use Humulin-N BID and Humulin R with meals outpatient H/o A-Fib - during left knee surgery previously, been on metoprolol BID since, no further episodes HLD - statin HTN urgency - will give prn hydralazine, cont home JOLEEN and toprol New onset right-sided weakness, rule out CVApending neuro evaluation and CT head results FEN - ADA diet PPX - lovenox FULL CODE DIspo - inpatient for above History of Present Illness History of Present Illness 55 year old male w/ PMHx DM2, arthritis, A-Fib, HLD, HTN, neuropathy who comes to ED from [facility] c/o right lower back and right lower quadrant abdominal pain. He has had pain for the last day with polyuria and polydipsia. Denies a history of kidney stones in the past, denies any hematuria dysuria. Says the pain is in his right lower quadrant is always dull but intermittently sharp and radiates to his right flank. He said he had a subjective fever yesterday. He does note he had a right ureteral surgery as a child and he and his father have both had urinary tract infections occasionally over the lives. He does note his blood sugar and blood pressure have been running high over the last day as well. When he used to take insulin his blood sugars usually run between 180 and 200, used to take 35units lantus twice daily. He notes on outpatient follow-up he was told to stop taking insulin after his A1c returned at 11 and was placed on Metformin and Actos a few weeks ago. He notes he is in the process of trying to move to [place]. He used to receive most of his health care in [place] but has been traveling around the country recently. He moved to [place] to be with a woman and has been depressed after the break-up and is getting help with the [employer] while he is working on transitioning to [place] to live with his cousin In ED blood pressure to be 203/110. WBC 8.9, Hb 13.3, platelets 240, NA 129, K5.4, BUN 24, CR 1.3, glucose 725 no anion gap, LFTs within normal laboratory limits, magnesium 2, phosphorus 3.2, albumin 3.8, lipase 130, urinalysis with glucosuria and leukocyte esterase positive. CT abdomen pelvis with concern for pyelonephritis right kidney no nephrolithiasis. Multiple renal lesions likely cysts and left adrenal nodule. Given IVF, antibiotics, insulin and admitted for further care. 08/03/2021 No acute events overnight. Patient seen examined bedside. This morning patient apparently stated that he had right-sided numbness and tingling's and some weakness in his upper extremity. Stroke code was called around [address] head was ordered. Pending neuro evaluation. One-time dose of aspirin 325 mg and atorvastatin was given. Further questioning patient stated that he was supposed to be on Xarelto for his atrial fibrillation, but he has not been taking this medication. Patient's chart, labs, images were reviewed and discussed with RN 08/04 Patient evaluated examined at bedside. No major complaints today. Handfull of work-up including MRI echo to be done. Neurology following. Therapy modalities. Will have better idea of plan moving forward once work-up completed. 08/05 Patient evaluated examined at bedside. No major complaints. Will definitely need placement. May be difficult with his insurance status. Otherwise follow neurology recommendations. Will discuss with social work. 08/06 Evaluate examined at bedside. Reports still thinking about SNF placement. Informed him we do need a decision sooner than later. We will follow up on this. Otherwise continue current. 08/07 Evaluated examined at bedside. Patient does not actually have any benefits for placement. Really no other option to return home at this point. To [employer] [facility] today. Greater than 30 minutes spent on this discharge. 21 minutes advance care planning. Disposition: Disposition/Orders: D/C to Home Activity: Activity: Resume previous activity Diet: Diet: Cardiac Medications: Home Meds Active Scripts Linagliptin (TRADJENTA) 5 Mg Tablet, 5 MG PO DAILY for dm2 for 30 Days, #30 TAB Prov:JIMBO CAMPOS MD 08/07/21 Aspirin (ASPIRIN) 325 Mg Tablet, 325 MG PO DAILYWBKFT for stroke prophylaxisx for 30 Days, #30 TAB Prov:JIMBO CAMPOS MD 08/07/21 Lisinopril (LISINOPRIL) 40 Mg Tablet, 20 MG PO DAILY for htn for 30 Days, #15 TAB Prov:JIMBO CAMPOS MD 08/07/21 Metoprolol Tartrate (METOPROLOL TARTRATE) 25 Mg Tablet, 25 MG PO BID for htn for 30 Days, #60 TAB Prov:JIMBO CAMPOS MD 08/07/21 Tamsulosin Hcl (FLOMAX) 0.4 Mg Cap.er.24h, 0.4 MG PO QHS for bph for 30 Days, #30 CAP.SR Prov:JIMBO CAMPOS MD 08/07/21 Cefdinir (CEFDINIR) 300 Mg Capsule, 300 MG PO BID for infection for 3 Days, #6 CAP Prov:JIMBO CAMPOS MD 08/07/21 Tramadol Hcl (TRAMADOL HCL) 50 Mg Tablet, 50 MG PO Q6HRS PRN for PAIN, #12 TAB Prov:DIONE IRELAND 07/16/21 Reported Medications Pravastatin Sodium (PRAVASTATIN SODIUM) 20 Mg Tablet, 1 TAB PO DAILY for hyperlipidemia, #30 TAB 5 Refills 08/02/21 Pioglitazone Hcl (ACTOS) 15 Mg Tablet, 1 TAB PO DAILY for diabetes for 30 Days, #30 TAB 0 Refills 08/02/21 Metformin Hcl (METFORMIN HCL) 500 Mg Tablet, 500 MG PO BIDWMEALS for ANTI- DIABETIC, TAB 0 Refills 08/02/21 Discontinued Reported Medications Rivaroxaban (XARELTO) 10 Mg Tablet, 1 TAB PO DAILY for DVT for 7 Days, #7 TAB 0 Refills 08/02/21 Scheduled Aspirin (Aspirin), 325 MG PO DAILYWBKFT Cefdinir (Cefdinir), 300 MG PO BID Linagliptin (Tradjenta), 5 MG PO DAILY Lisinopril (Lisinopril), 20 MG PO DAILY Metformin Hcl (Metformin Hcl), 500 MG PO BIDWMEALS, (Reported) Metoprolol Tartrate (Metoprolol Tartrate), 25 MG PO BID Pioglitazone Hcl (Actos), 1 TAB PO DAILY, (Reported) Pravastatin Sodium (Pravastatin Sodium), 1 TAB PO DAILY, (Reported) Tamsulosin Hcl (Flomax), 0.4 MG PO QHS Scheduled PRN Tramadol Hcl (Tramadol Hcl), 50 MG PO Q6HRS PRN for PAIN Discontinued Medications Rivaroxaban (Xarelto), 1 TAB PO DAILY, (Reported) Justicifation of Admission Dx: Justifications for Admission: Justification of Admission Dx: N/A JIMBO CAMPOS MD Aug 07, 2021 10:45
== END 2021-08-07 11:10 | disposition home or self-care (01) | DRG 637 ==
LOC: ER 11:35 → ED HOLD 14:00 → 5 NORTH 17:37
PROVIDERS: ADMIT Internal Medicine; ATTEND Internal Medicine
DX: E11.00 Type 2 diabetes mellitus with hyperosmolarity without nonketotic hyperglycemic-hyperosmolar coma (NKHHC) (principal); I63.9 Cerebral infarction, unspecified; N17.0 Acute kidney failure with tubular necrosis; N12 Tubulo-interstitial nephritis, not specified as acute or chronic; E87.1 Hypo-osmolality and hyponatremia; G81.91 Hemiplegia, unspecified affecting right dominant side; E11.40 Type 2 diabetes mellitus with diabetic neuropathy, unspecified; E27.8 Other specified disorders of adrenal gland; E78.5 Hyperlipidemia, unspecified; E87.6 Hypokalemia; I10 Essential (primary) hypertension; I16.0 Hypertensive urgency; I48.91 Unspecified atrial fibrillation; Z96.652 Presence of left artificial knee joint; R29.700 NIHSS score 0; Z79.01 Long term (current) use of anticoagulants; Z79.4 Long term (current) use of insulin
CPT/HCPCS: 36415; 70450; 70551; 74177; 80048; 80053; 80061; 81001; 82962; 83690; 83735; 84100; 85025; 85730; 87086; 87147; 93005; 93306; 93880; 96361; 96374; 96375; J0360; J0696; J1815; J2270; J2405; J3010; J7030; Q9967; 92610-GN; 97116-GP; 97530-GO; 97535-GO; 99285-25; C8929; G0378

== ENCOUNTER 2021-08-23 02:20 | Observation (INO) | payer MEDICAID ==
[~2021-08-23] VITALS: Ht 177.8 cm; Wt 118.7 kg
[~2021-08-23 02:20] MED LIST changes: +ASPI325T8 PO; +CEFD300C PO; +LINA5TAB PO; +LISI-130 PO; +METF500T16 PO; +METO25TA4 PO; +PIOG15TA42 PO; +PRAV20TA2 PO; +RIVA10TA PO; +TAMS0.4C97 PO
[2021-08-23] MEDS ORDERED: METOPROLOL IV PUSH 5 MG/5 ML VIAL. IVP ONE (02:30)
[2021-08-23] MEDS ORDERED: INSULIN REGULAR 100 UNIT/ML 3ML VIAL. IV ONE (02:45)
[2021-08-23 02:55] LABS: BASO # 0.1 x10^3/uL (0.0-0.2); BASO % 1 % (0-3); EOS # 0.4 x10^3/uL (0.0-0.7); EOS % 4 % (0-3); HEMATOCRIT 33.5 % (39.0-53.0); HEMOGLOBIN 11.9 g/dL (13.0-17.5); LYMPH # 1.3 x10^3/uL (1.0-4.8); LYMPH % 15 % (24-48); MEAN CORPUSCULAR HEMOGLOBIN 32 pg (25-35); MEAN CORPUSCULAR HGB CONC 35 g/dL (31-37); MEAN CORPUSCULAR VOLUME 90 fL (79-100); MONO # 0.7 x10^3/uL (0.0-1.1); MONO % 8 % (0-9); NEUT % 72 % (31-73); PLATELET COUNT 247 x10^3/uL (140-400); RED BLOOD COUNT 3.74 x10^6/uL (4.30-5.70); RED CELL DISTRIBUTION WIDTH 14.1 % (11.5-14.5); WHITE BLOOD COUNT 8.4 x10^3/uL (4.0-11.0)
[2021-08-23 03:01] LABS: CALCIUM 8.9 mg/dL (8.5-10.1); CREATININE 1.1 mg/dL (0.7-1.3); GFR 69.5; POTASSIUM 4.2 mmol/L (3.5-5.1)
[2021-08-23 03:10] LABS: ALBUMIN 3.7 g/dL (3.4-5.0); ALBUMIN/GLOBULIN RATIO 1.2 (1.0-1.7); MAGNESIUM 1.9 mg/dL (1.8-2.4); TOTAL BILIRUBIN 1.1 mg/dL (0.2-1.0); TOTAL PROTEIN 6.7 g/dL (6.4-8.2)
--- NOTE | 2021-08-23 03:14 | PHYS DOC ---
Past Medical History Past Medical History: Arthritis, Diabetes-Type II, Gallstones, Hypertension Additional Past Medical Histor: neuropathy, torn retina left eye Past Surgical History: Tonsillectomy, Other Additional Past Surgical Histo: secondaryto my DM foot and knee surgery, kidney Smoking Status: Former Smoker Alcohol Use: None General Adult EDM: Chief Complaint: HEADACHE HPI: HPI: Patient is a 55 year old male who was brought here by EMS from [facility] due to headache, feeling dizzy. He has PMHx DM2, arthritis, A-Fib, HLD, HTN, neuropathy. He was admitted here on 08/02/21 due to back pain, abdominal pain, he was found to have uncontrolled HTN, DIABETIC, KIDNEY INFECTION. He discharged back to the [facility] with medications for his DM, HTN AND CHOLESTEROL PROBLEM. He moved to [place] to be with a woman and has been depressed after the break-up and is getting help with the [facility] while he is working on transitioning to [place] to live with his cousin. He is currently on metoprolol 25 mg twice a day, Metformin 500 mg twice a day, lisinopril 20 mg daily. Patient is also on cholesterol medication. Patient is not on any blood thinner besides aspirin. Patient claims that he has been taking all his medication as directed. Patient said he woke up this morning headache, feeling dizzy and chest pressure. Patient said he IS still having back pain. Patient also complained of upper back pain. Patient denies any cough or fever. Patient denies any numbness or weakness anywhere. Patient states his legs are always swelling. Patient had an echocardiogram of his heart on August 04, 2021, EF 60%. Review of Systems: Review of Systems: Constitutional: Denies fever or chills. [] Eyes: Denies change in visual acuity. [] HENT: Denies nasal congestion or sore throat. [] Respiratory: Denies cough or shortness of breath. [] Cardiovascular: Denies chest pain or edema. [] GI: Denies abdominal pain, nausea, vomiting, bloody stools or diarrhea. [] : Denies dysuria. [] Musculoskeletal: Denies back pain or joint pain. [] Integument: Denies rash. [] Neurologic: Denies headache, focal weakness or sensory changes. [] Endocrine: Denies polyuria or polydipsia. [] Lymphatic: Denies swollen glands. [] Psychiatric: Denies depression or anxiety. [] Heart Score: C/O Chest Pain: Yes HEART Score for Chest Pain: HEART Score for Chest Pain Response (Comments) Value History Moderately Suspicious 1 ECG Nonspecific Repolarizatio 1 Age >45 - < 65 1 Risk Factors 1 or 2 Risk Factors 1 Troponin < Normal Limit 0 Total 4 Risk Factors: Risk Factors: DM, Current or recent (<one month) smoker, HTN, HLP, family history of CAD, obesity. Risk Scores: Score 0 - 3: 2.5% MACE over next 6 weeks - Discharge Home Score 4 - 6: 20.3% MACE over next 6 weeks - Admit for Clinical Observation Score 7 - 10: 72.7% MACE over next 6 weeks - Early Invasive Strategies Current Medications: Current Medications Medications (Trade) Dose Ordered Sig/Norma Start Time Stop Time Status Last Admin Dose Admin Insulin Human Regular (HumuLIN R VIAL) 10 unit 1X ONCE 08/23/21 02:45 08/23/21 02:48 DC 08/23/21 03:08 10 UNIT Metoprolol Tartrate (Lopressor Vial) 5 mg 1X ONCE 08/23/21 02:30 08/23/21 02:31 DC 08/23/21 02:43 5 MG Allergies: Allergies: Allergies Coded Allergies Type Severity Reaction Last Updated Verified No Known Drug Allergies 08/23/21 No Physical Exam: PE: Constitutional: Well developed, well nourished, no acute distress, non-toxic appearance. [] HENT: Normocephalic, atraumatic, bilateral external ears normal, oropharynx moist, no oral exudates, nose normal. [] Eyes: PERRLA, EOMI, conjunctiva normal, no discharge. [] Neck: Normal range of motion, no tenderness, supple, no stridor. [] Cardiovascular:Heart rate regular rhythm, no murmur [] Lungs & Thorax: Bilateral breath sounds clear to auscultation [] Abdomen: Bowel sounds normal, soft, no tenderness, no masses, no pulsatile masses. [] Skin: Warm, dry, no erythema, no rash. [] Back: No tenderness, no CVA tenderness. [] Extremities: No tenderness, no cyanosis, no clubbing, ROM intact, no edema. [] Neurologic: Alert and oriented X 3, normal motor function, normal sensory function, no focal deficits noted. [] Psychologic: Affect normal, judgement normal, mood normal. [] Current Patient Data: Labs: Laboratory Tests Test 08/23/21 02:28 08/23/21 02:40 Glucose (Fingerstick) 514 mg/dL (70-99) *H White Blood Count 8.4 x10^3/uL (4.0-11.0) Red Blood Count 3.74 x10^6/uL (4.30-5.70) L Hemoglobin 11.9 g/dL (13.0-17.5) L Hematocrit 33.5 % (39.0-53.0) L Mean Corpuscular Volume 90 fL (79-100) Mean Corpuscular Hemoglobin 32 pg (25-35) Mean Corpuscular Hemoglobin Concent 35 g/dL (31-37) Red Cell Distribution Width 14.1 % (11.5-14.5) Platelet Count 247 x10^3/uL (140-400) Neutrophils (%) (Auto) 72 % (31-73) Lymphocytes (%) (Auto) 15 % (24-48) L Monocytes (%) (Auto) 8 % (0-9) Eosinophils (%) (Auto) 4 % (0-3) H Basophils (%) (Auto) 1 % (0-3) Neutrophils # (Auto) 6.0 x10^3/uL (1.8-7.7) Lymphocytes # (Auto) 1.3 x10^3/uL (1.0-4.8) Monocytes # (Auto) 0.7 x10^3/uL (0.0-1.1) Eosinophils # (Auto) 0.4 x10^3/uL (0.0-0.7) Basophils # (Auto) 0.1 x10^3/uL (0.0-0.2) Sodium Level 132 mmol/L (136-145) L Potassium Level 4.2 mmol/L (3.5-5.1) Chloride Level 95 mmol/L (98-107) L Carbon Dioxide Level 27 mmol/L (21-32) Anion Gap 10 (6-14) Blood Urea Nitrogen 22 mg/dL (8-26) Creatinine 1.1 mg/dL (0.7-1.3) Estimated GFR (Cockcroft-Gault) 69.5 BUN/Creatinine Ratio 20 (6-20) Glucose Level 494 mg/dL (70-99) H Calcium Level 8.9 mg/dL (8.5-10.1) Magnesium Level Pending Total Bilirubin Pending Aspartate Amino Transferase (AST) Pending Alanine Aminotransferase (ALT) Pending Alkaline Phosphatase Pending Total Protein Pending Albumin Pending Albumin/Globulin Ratio Pending Lipase Pending Acetone Level Neg (NEG) Laboratory Tests 08/23/21 02:40 Laboratory Tests 08/23/21 02:40 Vital Signs: Vital Signs Date Time Temp Pulse Resp B/P (MAP) Pulse Ox O2 Delivery O2 Flow Rate FiO2 08/23/21 02:43 75 224/112 08/23/21 02:20 98.0 18 98 Room Air 98.0 EKG: EKG: EKG was done at 226 8, heart rate of 82 bpm, sinus rhythm, no ST segment gasper vation, incomplete right bundle branch block Radiology/Procedures: Radiology/Procedures: [][facility] [address] [place], [place] [id number] IMAGING REPORT Signed PATIENT: Hua ADAME ACCOUNT: [id number] : 1965 LOCATION: ER AGE: 55 SEX: M EXAM STATUS: PRE ER ORD. PHYSICIAN: MARLYN DAVILA DO REASON: headache, hypertension, Small acute infarct left thalamus 08/04/21 PROCEDURE: CT HEAD WO CONTRAST STUDY: CT head without contrast INDICATION: Headache. Hypertension. COMPARISON: 08/03/2021 TECHNIQUE: Axial CT imaging through the head without the use of intravenous contrast. Sagittal and coronal reformats were obtained. One or more of the following individualized dose reduction techniques were utilized for this examination: 1. Automated exposure control 2. Adjustment of the mA and/or kV according to patient size 3. Use of iterative reconstruction technique. FINDINGS: No acute intracranial hemorrhage. No appreciable loss of gifford-white matter differentiation. Very faint sliver of low attenuation at the upper left thalamus corresponds to the trimmer operator three knife infarct identified on the comparison MRI. No midline shift. Unchanged prominence of the lateral and third ventricles. As before there is relative sulcal crowding at the vertex. White matter findings most typical of chronic microvascular ischemic change. Intact calvarium. Unchanged aeration pattern of the mastoid air cells and visualized paranasal sinuses. IMPRESSION: 1. No acute intracranial abnormality by CT. Expected evolutionary changes of a subtle small left thalamic trimmer operator three knife infarct. 2. Chronic findings as previously described and better characterized on the 08/04/2021 MRI. Electronically signed by: ARRON DODSON MD (08/23/2021 3:17 AM) [facility] DICTATED and SIGNED BY: ARRON DODSON MD DATE: 08/23/21 031 [facility] [address] [place] [address] IMAGING REPORT Signed PATIENT: Hua ADAME ACCOUNT: [id number] : 1965 LOCATION: ER AGE: 55 SEX: M EXAM STATUS: REG ER ORD. PHYSICIAN: MARLYN DAVILA DO REASON: chest pain PROCEDURE: PORTABLE CHEST 1V Study: XR CHEST 1V Indication: Chest pain. Comparison: None. Findings: Mild enlargement of the cardiomediastinal silhouette. Symmetric remington. No confluent airspace infiltrate, pleural effusion or pneumothorax. Probable enchondroma at the proximal left humerus also seen on the 01/17/2021 CT chest baby formula mixer radiograph. Impression: 1. Prominence of the cardiomediastinal silhouette. No imaging manifestations of overt congestive heart failure/volume overload. 2. Probable enchondroma at the proximal left humerus. No dedicated follow-up is needed unless there is development of pain referrable to this region. Electronically signed by: ARRON DODSON MD (08/23/2021 3:27 AM) [facility] DICTATED and SIGNED BY: ARRON DODSON MD DATE: 08/23/[id number] [place], [place] [id number] IMAGING REPORT Signed PATIENT: Hua ADAME ACCOUNT: [id number] : 1965 LOCATION: ER AGE: 55 SEX: M EXAM STATUS: REG ER ORD. PHYSICIAN: MARLYN DAVILA DO REASON: chest pain, dizziness, hypertensive urgency PROCEDURE: CT ANGIO CHEST ABD PELVIS Study: CT angiography of the chest, abdomen and pelvis Indication: Chest pain. Dizziness. Hypertensive urgency. Comparison: CT abdomen/pelvis 08/02/2021; CT chest 01/16/2021 Technique: Helical CT imaging performed of the chest, abdomen and pelvis after the intravenous administration of 100 cc Omnipaque 350 contrast. Sagittal and coronal 3D MIP reconstructions were obtained. One or more of the following individualized dose reduction techniques were utilized for this examination: 1. Automated exposure control 2. Adjustment of the mA and/or kV according to patient size 3. Use of iterative reconstruction technique. Findings: Vasculature: Scattered calcified and noncalcified atheromatous plaque to include coronary artery involvement. No aortic aneurysm or dissection. Prominence of the heart. The visualized great vessels are patent. Unchanged main pulmonary artery caliber. No central pulmonary embolism. Incomplete evaluation of the peripheral pulmonary arteries. No flow-limiting stenosis of the abdominal aortic branch vessels. Patent iliac and visualized femoral arteries. Non-vascular Findings: Chest: No pathologically enlarged mediastinal or hilar lymph nodes. Small volume pericardial fluid. A few small pulmonary nodules are unchanged such as right lower lobe on image 69 series 4. No pleural effusion. Patent central airways. Mild body wall edema. Small left thyroid lobe nodule not meeting size criteria for dedicated follow-up. Scattered degenerative/chronic osseous findings. No acute or aggressive abnormality. Abdomen/pelvis: Unchanged mild enlargement of the liver. Hyperdensity fills the gallbladder lumen also seen previously. Nondilated biliary tree. Unchanged pancreas. Unchanged left adrenal gland nodule measuring up to 2.4 cm. Unchanged degree of splenomegaly. Several low-attenuation foci within the kidneys measure no different in size. No hydronephrosis. Unremarkable bladder. Unchanged prostate. Mild constipation. Normal appendix. Nonobstructed small bowel. Unremarkable stomach. Similarly sized lymph nodes. No free fluid or pneumoperitoneum. Mild body wall edema. Scattered degenerative and chronic osseous findings without significant change. Impression: 1. No aortic aneurysm or dissection. No flow-limiting stenosis of the aortic branch vessels. Calcific coronary artery disease. Unchanged prominence of the heart. 2. Redemonstrated and unchanged hepatosplenomegaly. Hyperattenuating material fills the gallbladder lumen which could again represent vicarious excretion of contrast. 3. Mild constipation. 4. Scattered renal cystic foci and a stable left adrenal gland nodule with a density diagnostic of a benign adenoma. Electronically signed by: ARRON DODSON MD (08/23/2021 5:28 AM) [facility] DICTATED and SIGNED BY: ARRON DODSON MD DATE: 08/23/21 0515 Course & Med Decision Making: Course & Med Decision Making Pertinent Labs and Imaging studies reviewed. (See chart for details) Patient is a 55-year-old male who present to ER due to headache, chest pain, dizziness, back pain. Patient was found to have hypertension, hyper glycemia. Patient was given insulin and blood pressure, his blood pressure improved, his blood sugar improved. Cardiac enzymes came back normal so far. CTA of the chest abdomen pelvis did not show any acute problem ,CT scan head did not show acute problem. Patient will be admitted to hospital for further evaluation and treatment. Discussed with Dr. Gill who agreed to admit the patient.. Thierry Disclaimer: Thierry Disclaimer: This electronic medical record was generated, in whole or in part, using a voice recognition dictation system. Departure Departure Impression: Primary Impression: Chest pain Additional Impressions: Hypertension Hyperglycemia Disposition: ADMITTED INPATIENT Admitting Physician: QUENTIN (DR. Mckeon) Condition: IMPROVED Referrals: NO PCP (PCP) MARLYN DAVILA DO Aug 23, 2021 03:14
--- NOTE | 2021-08-23 03:19 | RAD ---
STUDY: CT head without contrast INDICATION: Headache. Hypertension. COMPARISON: 08/03/2021 TECHNIQUE: Axial CT imaging through the head without the use of intravenous contrast. Sagittal and co annemarie reformats were obtained. One or more of the following individualized dose reduction techniques were utilized for this examinat ion: 1. Automated exposure control 2. Adjustment of the mA and/or kV according to patient size 3. Use of iterative reconstruction technique. FINDINGS: No acute intracranial hemorrhage. No appreciable loss of gifford-white matter differentiation. Very ashlyn t sliver of low attenuation at the upper left thalamus corresponds to the publication editor infarct identifi ed on the comparison MRI. No midline shift. Unchanged prominence of the lateral and third ventricles. As before there is relative sulcal crowding at the vertex. White matter findings most typical of chr onic microvascular ischemic change. Intact calvarium. Unchanged aeration pattern of the mastoid air cells and visualized paranasal sinuse s. IMPRESSION: 1. No acute intracranial abnormality by CT. Expected evolutionary changes of a subtle small left jean carlos lamic publication editor infarct. 2. Chronic findings as previously described and better characterized on the 08/04/2021 MRI. Electronically signed by: ARRON DODSON MD (08/23/2021 3:17 AM) [facility]
--- NOTE | 2021-08-23 03:29 | RAD ---
Study: XR CHEST 1V Indication: Chest pain. Comparison: None. Findings: Mild enlargement of the cardiomediastinal silhouette. Symmetric remington. No confluent airspace infiltrat e, pleural effusion or pneumothorax. Probable enchondroma at the proximal left humerus also seen on the 01/17/2021 CT chest raftsman radiograp h. Impression: 1. Prominence of the cardiomediastinal silhouette. No imaging manifestations of overt congestive hear t failure/volume overload. 2. Probable enchondroma at the proximal left humerus. No dedicated follow-up is needed unless there i s development of pain referrable to this region. Electronically signed by: ARRON DODSON MD (08/23/2021 3:27 AM) [facility]
[2021-08-23] MEDS ORDERED: IOHEXOL 350 MG/ML 100 ML VIAL. IV ONE (04:15)
[2021-08-23] MEDS ORDERED: CONTRAST GIVEN. MC PRN (04:30)
--- NOTE | 2021-08-23 05:31 | RAD ---
Study: CT angiography of the chest, abdomen and pelvis Indication: Chest pain. Dizziness. Hypertensive urgency. Comparison: CT abdomen/pelvis 08/02/2021; CT chest 01/16/2021 Technique: Helical CT imaging performed of the chest, abdomen and pelvis after the intravenous admini stration of 100 cc Omnipaque 350 contrast. Sagittal and coronal 3D MIP reconstructions were obtained. One or more of the following individualized dose reduction techniques were utilized for this examinat ion: 1. Automated exposure control 2. Adjustment of the mA and/or kV according to patient size 3. Use of iterative reconstruction technique. Findings: Vasculature: Scattered calcified and noncalcified atheromatous plaque to include coronary artery involvement. No a ortic aneurysm or dissection. Prominence of the heart. The visualized great vessels are patent. Uncha nged main pulmonary artery caliber. No central pulmonary embolism. Incomplete evaluation of the perip heral pulmonary arteries. No flow-limiting stenosis of the abdominal aortic branch vessels. Patent iliac and visualized femoral arteries. Non-vascular Findings: Chest: No pathologically enlarged mediastinal or hilar lymph nodes. Small volume pericardial fluid. A few sm all pulmonary nodules are unchanged such as right lower lobe on image 69 series 4. No pleural effusio n. Patent central airways. Mild body wall edema. Small left thyroid lobe nodule not meeting size crit eria for dedicated follow-up. Scattered degenerative/chronic osseous findings. No acute or aggressive abnormality. Abdomen/pelvis: Unchanged mild enlargement of the liver. Hyperdensity fills the gallbladder lumen also seen previousl y. Nondilated biliary tree. Unchanged pancreas. Unchanged left adrenal gland nodule measuring up to 2 .4 cm. Unchanged degree of splenomegaly. Several low-attenuation foci within the kidneys measure no different in size. No hydronephrosis. Unre markable bladder. Unchanged prostate. Mild constipation. Normal appendix. Nonobstructed small bowel. Unremarkable stomach. Similarly sized lymph nodes. No free fluid or pneumoperitoneum. Mild body wall edema. Scattered degenerative and chronic osseous findings without significant change. Impression: 1. No aortic aneurysm or dissection. No flow-limiting stenosis of the aortic branch vessels. Calcifi c coronary artery disease. Unchanged prominence of the heart. 2. Redemonstrated and unchanged hepatosplenomegaly. Hyperattenuating material fills the gallbladder lumen which could again represent vicarious excretion of contrast. 3. Mild constipation. 4. Scattered renal cystic foci and a stable left adrenal gland nodule with a density diagnostic of a benign adenoma. Electronically signed by: ARRON DODSON MD (08/23/2021 5:28 AM) [facility] [place]
[2021-08-23] MEDS ORDERED: NITROGLYCERIN SUBLINGUAL 0.4 MG BOTTLE OF 25. SL PRN (06:00)
[2021-08-23] MEDS ORDERED: ONDANSETRON PF 4 MG/2 ML VIAL. IVP PRN ×2 (06:00→07:30)
[2021-08-23] MEDS ORDERED: ASPIRIN CHEWABLE 81 MG TABLET. PO ONE (06:00)
--- NOTE | 2021-08-23 06:48 | EKG ---
[facility] [address] [place] [address] Test Date: 2021-08-23 Test Time: 06:20:52 Pat Name: Hua ADAME Department: Room: 205 1 Gender: M Gas Plumber: : 1965 Requested By: MARLYN DAVILA Order Number: [id number] Reading MD: Isiah Stevens Measurements Intervals [place] Rate: 73 P: 26 TN: 174 QRS: -26 QRSD: 102 T: 107 QT: 422 QTc: 469 Interpretive Statements SINUS RHYTHM LEFTWARD AXIS INCOMPLETE RIGHT BUNDLE BRANCH BLOCK T ABNORMALITY IN HIGH LATERAL LEADS ABNORMAL ECG Electronically Signed On 08-23-2021 8:49:59 CDT by Isiah Stevens
--- NOTE | 2021-08-23 06:54 | EKG ---
[facility] [address] [place] [address] Test Date: 2021-08-23 Test Time: 02:27:50 Pat Name: Hua ADAME Department: Room: 205 1 Gender: M Otr Flatbed Driver: : 1965 Requested By: MARLYN DAVILA Order Number: [id number] Reading MD: Isiah Stevens Measurements Intervals [place] Rate: 82 P: 56 [place]: 166 QRS: -33 QRSD: 104 T: 84 QT: 380 QTc: 447 Interpretive Statements SINUS RHYTHM ABNORMAL LEFT AXIS DEVIATION LEFT ANTERIOR FASCICULAR BLOCK INCOMPLETE RIGHT BUNDLE BRANCH BLOCK ST & T ABNORMALITY, CONSIDER HIGH LATERAL ISCHEMIA OR LEFT VENTRICULAR STRAIN ABNORMAL ECG Electronically Signed On 08-23-2021 8:50:57 CDT by Isiah Stevens
[2021-08-23] MEDS ORDERED: hydrALAZINE 20 MG/ML VIAL. IVP PRN (07:30)
[2021-08-23] MEDS ORDERED: traMADol 50 MG TABLET PO PRN (07:30)
[2021-08-23] MEDS ORDERED: DEXTROSE 50% 25 GM / 50ML DISP.SYRIN. IV PRN ×2 (07:30→09:00)
[2021-08-23] MEDS ORDERED: ACETAMINOPHEN 325 MG TABLET. PO PRN (07:30)
[2021-08-23] MEDS ORDERED: IV DEXTROSE 5% 250 ML BAG. IV PRN ×2 (07:30→09:00)
[2021-08-23] MEDS ORDERED: ASPIRIN 325 MG TABLET PO SCH (08:00)
[2021-08-23 08:23] VITALS: BP 154/81
[2021-08-23] MEDS: INSULIN LISPRO 300 UNITS/3 ML VIAL. SQ SCH ×2 (08:38→12:20)
[2021-08-23] MEDS ORDERED: LINAGLIPTIN 5 MG TABLET PO SCH (09:00)
[2021-08-23] MEDS ORDERED: PIOGLITAZONE 15 MG TABLET. PO SCH (09:00)
[2021-08-23] MEDS ORDERED: LISINOPRIL 20 MG TABLET PO SCH (09:00)
[2021-08-23] MEDS ORDERED: METOPROLOL TART IMMED RELEASE 25 MG TABLET. PO SCH (09:00)
--- NOTE | 2021-08-23 10:13 | PDOC1 ---
History and Physical Date of Admission Date of Admission DATE: 08/23/21 TIME: 10:11 Past Medical History Cardiovascular: AFIB, HTN, Hyperlipidemia Endocrine: Diabetes Social History ALCOHOL: none Drugs: None Current Problem List Problem List Problems Medical Problems: (1) Chest pain Status: Acute (2) Hyperglycemia Status: Acute (3) Hypertension Status: Acute Current Medications Current Medications Current Medications Metoprolol Tartrate (Lopressor Vial) 5 mg 1X ONCE IVP Last administered on 08/23/21at 02:43; Start 08/23/21 at 02:30; Stop 08/23/21 at 02:31; Status DC Insulin Human Regular (HumuLIN R VIAL) 10 unit 1X ONCE IV Last administered on 08/23/21at 03:08; Start 08/23/21 at 02:45; Stop 08/23/21 at 02:48; Status DC Iohexol (Omnipaque 350 Mg/ml) 100 ml 1X ONCE IV Last administered on 08/23/21at 04:32; Start 08/23/21 at 04:15; Stop 08/23/21 at 04:17; Status DC Info (CONTRAST GIVEN -- Rx MONITORING) 1 each PRN DAILY PRN MC SEE COMMENTS; Start 08/23/21 at 04:30; Stop 08/25/21 at 04:29 Ondansetron HCl (Zofran) 4 mg PRN Q8HRS PRN IVP NAUSEA/VOMITING; Start 08/23/21 at 06:00; Stop 08/23/21 at 07:31; Status DC Nitroglycerin (Nitrostat) 0.4 mg PRN Q5MIN PRN SL CHEST PAIN; Start 08/23/21 at 06:00; Stop 08/24/21 at 05:59 Aspirin (Aspirin Chewable) 324 mg 1X ONCE PO Last administered on 08/23/21at 06:56; Start 08/23/21 at 06:00; Stop 08/23/21 at 06:02; Status DC Ondansetron HCl (Zofran) 4 mg PRN Q4HRS PRN IVP NAUSEA/VOMITING; Start 08/23/21 at 07:30 Insulin Human Lispro (HumaLOG) 0-9 UNITS TIDACHC SQ Last administered on 08/23/21at 08:38; Start 08/23/21 at 07:30 Dextrose (Dextrose 50%-Water Syringe) 12.5 gm PRN Q15MIN PRN IV SEE COMMENTS; Start 08/23/21 at 07:30 Dextrose (Iv Dextrose 5%) 250 ml PRN Q15MIN PRN IV SEE COMMENTS; Start 08/23/21 at 07:30 Aspirin (Rico Aspirin) 325 mg DAILYWBKFT PO Last administered on 08/23/21at 08:38; Start 08/23/21 at 08:00 Linagliptin (Tradjenta) 5 mg DAILY PO Last administered on 08/23/21at 08:38; Start 08/23/21 at 09:00 Lisinopril (Prinivil) 20 mg DAILY PO Last administered on 08/23/21at 08:38; Start 08/23/21 at 09:00 Metoprolol Tartrate (Lopressor) 25 mg BID PO Last administered on 08/23/21at 08:38; Start 08/23/21 at 09:00 Pioglitazone HCl (Actos) 15 mg DAILY PO Last administered on 08/23/21at 08:38; Start 08/23/21 at 09:00 Tamsulosin HCl (Flomax) 0.4 mg QHS PO ; Start 08/23/21 at 21:00 Tramadol HCl (Ultram) 50 mg PRN Q6HRS PRN PO MILD TO MODERATE PAIN; Start 08/23/21 at 07:30 Atorvastatin Calcium (Lipitor) 10 mg QHS PO ; Start 08/23/21 at 21:00 Acetaminophen (Tylenol) 650 mg PRN Q6HRS PRN PO MILD PAIN / TEMP > 100.3'F; Start 08/23/21 at 07:30 Hydralazine HCl (Apresoline Inj) 10 mg PRN Q4HRS PRN IVP ELEVATED BP, SEE COMMENTS; Start 08/23/21 at 07:30 Insulin Glargine (Lantus Syringe) 20 unit QHS SQ ; Start 08/23/21 at 21:00 Insulin Human Lispro (HumaLOG) 5 units TIDWMEALS SQ ; Start 08/23/21 at 12:00 Dextrose (Dextrose 50%-Water Syringe) 12.5 gm PRN Q15MIN PRN IV SEE COMMENTS; Start 08/23/21 at 09:00 Dextrose (Iv Dextrose 5%) 250 ml PRN Q15MIN PRN IV SEE COMMENTS; Start 08/23/21 at 09:00 Active Scripts Active Tradjenta (Linagliptin) 5 Mg Tablet 5 Mg PO DAILY 30 Days Aspirin 325 Mg Tablet 325 Mg PO DAILYWBKFT 30 Days Lisinopril 40 Mg Tablet 20 Mg PO DAILY 30 Days Metoprolol Tartrate 25 Mg Tablet 25 Mg PO BID 30 Days Flomax (Tamsulosin Hcl) 0.4 Mg Cap.er.24h 0.4 Mg PO QHS 30 Days Cefdinir 300 Mg Capsule 300 Mg PO BID 3 Days Tramadol Hcl 50 Mg Tablet 50 Mg PO Q6HRS PRN Reported Pravastatin Sodium 20 Mg Tablet 1 Tab PO DAILY Actos (Pioglitazone Hcl) 15 Mg Tablet 1 Tab PO DAILY 30 Days Metformin Hcl 500 Mg Tablet 500 Mg PO BIDWMEALS Allergies Allergies: Coded Allergies: No Known Drug Allergies (Unverified , 08/23/21) Vitals Vitals Vital Signs Date Time Temp Pulse Resp B/P (MAP) Pulse Ox O2 Delivery O2 Flow Rate FiO2 08/23/21 09:10 Room Air 08/23/21 08:38 69 154/81 08/23/21 08:23 98.5 17 98 98.5 Labs Labs Laboratory Tests Test 08/23/21 02:28 08/23/21 02:40 08/23/21 03:45 08/23/21 06:17 Glucose (Fingerstick) 514 mg/dL (70-99) 353 mg/dL (70-99) White Blood Count 8.4 x10^3/uL (4.0-11.0) Red Blood Count 3.74 x10^6/uL (4.30-5.70) Hemoglobin 11.9 g/dL (13.0-17.5) Hematocrit 33.5 % (39.0-53.0) Mean Corpuscular Volume 90 fL (79-100) Mean Corpuscular Hemoglobin 32 pg (25-35) Mean Corpuscular Hemoglobin Concent 35 g/dL (31-37) Red Cell Distribution Width 14.1 % (11.5-14.5) Platelet Count 247 x10^3/uL (140-400) Neutrophils (%) (Auto) 72 % (31-73) Lymphocytes (%) (Auto) 15 % (24-48) Monocytes (%) (Auto) 8 % (0-9) Eosinophils (%) (Auto) 4 % (0-3) Basophils (%) (Auto) 1 % (0-3) Neutrophils # (Auto) 6.0 x10^3/uL (1.8-7.7) Lymphocytes # (Auto) 1.3 x10^3/uL (1.0-4.8) Monocytes # (Auto) 0.7 x10^3/uL (0.0-1.1) Eosinophils # (Auto) 0.4 x10^3/uL (0.0-0.7) Basophils # (Auto) 0.1 x10^3/uL (0.0-0.2) Sodium Level 132 mmol/L (136-145) Potassium Level 4.2 mmol/L (3.5-5.1) Chloride Level 95 mmol/L (98-107) Carbon Dioxide Level 27 mmol/L (21-32) Anion Gap 10 (6-14) Blood Urea Nitrogen 22 mg/dL (8-26) Creatinine 1.1 mg/dL (0.7-1.3) Estimated GFR (Cockcroft-Gault) 69.5 BUN/Creatinine Ratio 20 (6-20) Glucose Level 494 mg/dL (70-99) Calcium Level 8.9 mg/dL (8.5-10.1) Magnesium Level 1.9 mg/dL (1.8-2.4) Total Bilirubin 1.1 mg/dL (0.2-1.0) Aspartate Amino Transf (AST/SGOT) 8 U/L (15-37) Alanine Aminotransferase (ALT/SGPT) 17 U/L (16-63) Alkaline Phosphatase 99 U/L (46-116) Troponin I High Sensitivity 12 ng/L (4-75) 11 ng/L (4-75) IZ-Gdi-[id number]-Type Natriuretic Peptide 2887 pg/mL (0-124) Total Protein 6.7 g/dL (6.4-8.2) Albumin 3.7 g/dL (3.4-5.0) Albumin/Globulin Ratio 1.2 (1.0-1.7) Lipase 126 U/L (73-393) Acetone Level Neg (NEG) Test 08/23/21 08:07 08/23/21 09:20 Glucose (Fingerstick) 332 mg/dL (70-99) Troponin I High Sensitivity 11 ng/L (4-75) Laboratory Tests Test 08/23/21 02:28 08/23/21 02:40 08/23/21 03:45 08/23/21 06:17 Glucose (Fingerstick) 514 mg/dL (70-99) 353 mg/dL (70-99) White Blood Count 8.4 x10^3/uL (4.0-11.0) Red Blood Count 3.74 x10^6/uL (4.30-5.70) Hemoglobin 11.9 g/dL (13.0-17.5) Hematocrit 33.5 % (39.0-53.0) Mean Corpuscular Volume 90 fL (79-100) Mean Corpuscular Hemoglobin 32 pg (25-35) Mean Corpuscular Hemoglobin Concent 35 g/dL (31-37) Red Cell Distribution Width 14.1 % (11.5-14.5) Platelet Count 247 x10^3/uL (140-400) Neutrophils (%) (Auto) 72 % (31-73) Lymphocytes (%) (Auto) 15 % (24-48) Monocytes (%) (Auto) 8 % (0-9) Eosinophils (%) (Auto) 4 % (0-3) Basophils (%) (Auto) 1 % (0-3) Neutrophils # (Auto) 6.0 x10^3/uL (1.8-7.7) Lymphocytes # (Auto) 1.3 x10^3/uL (1.0-4.8) Monocytes # (Auto) 0.7 x10^3/uL (0.0-1.1) Eosinophils # (Auto) 0.4 x10^3/uL (0.0-0.7) Basophils # (Auto) 0.1 x10^3/uL (0.0-0.2) Sodium Level 132 mmol/L (136-145) Potassium Level 4.2 mmol/L (3.5-5.1) Chloride Level 95 mmol/L (98-107) Carbon Dioxide Level 27 mmol/L (21-32) Anion Gap 10 (6-14) Blood Urea Nitrogen 22 mg/dL (8-26) Creatinine 1.1 mg/dL (0.7-1.3) Estimated GFR (Cockcroft-Gault) 69.5 BUN/Creatinine Ratio 20 (6-20) Glucose Level 494 mg/dL (70-99) Calcium Level 8.9 mg/dL (8.5-10.1) Magnesium Level 1.9 mg/dL (1.8-2.4) Total Bilirubin 1.1 mg/dL (0.2-1.0) Aspartate Amino Transf (AST/SGOT) 8 U/L (15-37) Alanine Aminotransferase (ALT/SGPT) 17 U/L (16-63) Alkaline Phosphatase 99 U/L (46-116) Troponin I High Sensitivity 12 ng/L (4-75) 11 ng/L (4-75) ML-Fpa-E-Type Natriuretic Peptide 2887 pg/mL (0-124) Total Protein 6.7 g/dL (6.4-8.2) Albumin 3.7 g/dL (3.4-5.0) Albumin/Globulin Ratio 1.2 (1.0-1.7) Lipase 126 U/L (73-393) Acetone Level Neg (NEG) Test 08/23/21 08:07 08/23/21 09:20 Glucose (Fingerstick) 332 mg/dL (70-99) Troponin I High Sensitivity 11 ng/L (4-75) VTE Prophylaxis Ordered VTE Prophylaxis Devices: No VTE Pharmacological Prophylaxi: Yes Assessment/Plan Assessment/Plan Echo 08/04/21 showed moderate concentric left ventricular hypertrophy, EF 60%, normal LV segmental wall motion. Justifications for Admission Other Justification MARI GARCIA MD Aug 23, 2021 10:12
[2021-08-23 11:00] VITALS: BP 128/63
--- NOTE | 2021-08-23 11:50 | PDOC1 ---
History and Physical Date of Admission Date of Admission DATE: 08/23/21 TIME: 11:30 Identification/Chief Complaint Chief Complaint Dizziness, headache Source Source: Patient History of Present Illness History of Present Illness Patient is a 55-year-old male with past medical history TIA, HTN, DM 2, who presents to the ED with complaints of dizziness. He reports associated chest congestion, right hand numbness, and headache. States his right hand numbness is residual from a TIA he recently had. His headaches are chronic since childhood, and unchanged laterality. On admission his blood pressure was 224/112 mmHg, he was significantly hyperglycemic at 514, and proBNP 2887. He tells me he has had intermittent access to his medications recently, he is not on aspirin or diuretic. He was admitted for further medical management. Past Medical History Cardiovascular: AFIB, HTN, Hyperlipidemia Endocrine: Diabetes Past Surgical History Past Surgical History Left foot, left knee Family History Family History: Coronary Artery Disease Social History Smoke: Quit ALCOHOL: none Drugs: None Current Problem List Problem List Problems Medical Problems: (1) Chest pain Status: Acute (2) Hyperglycemia Status: Acute (3) Hypertension Status: Acute Current Medications Current Medications Current Medications Metoprolol Tartrate (Lopressor Vial) 5 mg 1X ONCE IVP Last administered on 08/23/21at 02:43; Start 08/23/21 at 02:30; Stop 08/23/21 at 02:31; Status DC Insulin Human Regular (HumuLIN R VIAL) 10 unit 1X ONCE IV Last administered on 08/23/21at 03:08; Start 08/23/21 at 02:45; Stop 08/23/21 at 02:48; Status DC Iohexol (Omnipaque 350 Mg/ml) 100 ml 1X ONCE IV Last administered on 08/23/21at 04:32; Start 08/23/21 at 04:15; Stop 08/23/21 at 04:17; Status DC Info (CONTRAST GIVEN -- Rx MONITORING) 1 each PRN DAILY PRN MC SEE COMMENTS; Start 08/23/21 at 04:30; Stop 08/25/21 at 04:29 Ondansetron HCl (Zofran) 4 mg PRN Q8HRS PRN IVP NAUSEA/VOMITING; Start 08/23/21 at 06:00; Stop 08/23/21 at 07:31; Status DC Nitroglycerin (Nitrostat) 0.4 mg PRN Q5MIN PRN SL CHEST PAIN; Start 08/23/21 at 06:00; Stop 08/24/21 at 05:59 Aspirin (Aspirin Chewable) 324 mg 1X ONCE PO Last administered on 08/23/21at 06:56; Start 08/23/21 at 06:00; Stop 08/23/21 at 06:02; Status DC Ondansetron HCl (Zofran) 4 mg PRN Q4HRS PRN IVP NAUSEA/VOMITING; Start 08/23/21 at 07:30 Insulin Human Lispro (HumaLOG) 0-9 UNITS TIDACHC SQ Last administered on 08/23/21at 08:38; Start 08/23/21 at 07:30 Dextrose (Dextrose 50%-Water Syringe) 12.5 gm PRN Q15MIN PRN IV SEE COMMENTS; Start 08/23/21 at 07:30; Stop 08/23/21 at 10:55; Status DC Dextrose (Iv Dextrose 5%) 250 ml PRN Q15MIN PRN IV SEE COMMENTS; Start 08/23/21 at 07:30 Aspirin (Rico Aspirin) 325 mg DAILYWBKFT PO Last administered on 08/23/21at 08:38; Start 08/23/21 at 08:00 Linagliptin (Tradjenta) 5 mg DAILY PO Last administered on 08/23/21at 08:38; Start 08/23/21 at 09:00 Lisinopril (Prinivil) 20 mg DAILY PO Last administered on 08/23/21at 08:38; Start 08/23/21 at 09:00 Metoprolol Tartrate (Lopressor) 25 mg BID PO Last administered on 08/23/21at 08:38; Start 08/23/21 at 09:00 Pioglitazone HCl (Actos) 15 mg DAILY PO Last administered on 08/23/21at 08:38; Start 08/23/21 at 09:00 Tamsulosin HCl (Flomax) 0.4 mg QHS PO ; Start 08/23/21 at 21:00 Tramadol HCl (Ultram) 50 mg PRN Q6HRS PRN PO MILD TO MODERATE PAIN; Start 08/23 at 07:30 Atorvastatin Calcium (Lipitor) 10 mg QHS PO ; Start 08/23/21 at 21:00 Acetaminophen (Tylenol) 650 mg PRN Q6HRS PRN PO MILD PAIN / TEMP > 100.3'F; Start 08/23/21 at 07:30 Hydralazine HCl (Apresoline Inj) 10 mg PRN Q4HRS PRN IVP ELEVATED BP, SEE COMMENTS; Start 08/23/21 at 07:30 Insulin Glargine (Lantus Syringe) 20 unit QHS SQ ; Start 08/23/21 at 21:00 Insulin Human Lispro (HumaLOG) 5 units TIDWMEALS SQ ; Start 08/23/21 at 12:00 Dextrose (Dextrose 50%-Water Syringe) 12.5 gm PRN Q15MIN PRN IV SEE COMMENTS; Start 08/23/21 at 09:00 Dextrose (Iv Dextrose 5%) 250 ml PRN Q15MIN PRN IV SEE COMMENTS; Start 08/23/21 at 09:00 Active Scripts Active Tradjenta (Linagliptin) 5 Mg Tablet 5 Mg PO DAILY 30 Days Aspirin 325 Mg Tablet 325 Mg PO DAILYWBKFT 30 Days Lisinopril 40 Mg Tablet 20 Mg PO DAILY 30 Days Metoprolol Tartrate 25 Mg Tablet 25 Mg PO BID 30 Days Flomax (Tamsulosin Hcl) 0.4 Mg Cap.er.24h 0.4 Mg PO QHS 30 Days Cefdinir 300 Mg Capsule 300 Mg PO BID 3 Days Tramadol Hcl 50 Mg Tablet 50 Mg PO Q6HRS PRN Reported Pravastatin Sodium 20 Mg Tablet 1 Tab PO DAILY Actos (Pioglitazone Hcl) 15 Mg Tablet 1 Tab PO DAILY 30 Days Metformin Hcl 500 Mg Tablet 500 Mg PO BIDWMEALS Allergies Allergies: Coded Allergies: No Known Drug Allergies (Unverified , 08/23/21) ROS Review of System GENERAL: No history of weight change, weakness or fevers. SKIN: No bruising, hair changes or rashes. EYES: No blurred, double or loss of vision. NOSE AND THROAT: No history of nosebleeds, hoarseness or sore throat. HEART: Denies chest pain, denies palpitations. LUNGS: Denies cough, hemoptysis, wheezing or shortness of breath. GASTROINTESTINAL: Denies nausea, vomiting, abdominal pain. GENITOURINARY: Denies dysuria, frequency, urgency, hematuria. NEUROLOGIC: Dizziness, headache, right hand numbness. Denies history of tremor or weakness. PSYCHIATRIC: Denies anxiety, denies depression. ENDOCRINE: No history of heat or cold intolerance, polyuria or polydipsia. EXTREMITIES: Swelling to bilateral legs. Denies muscle weakness, joint pain, pain on walking or stiffness. Physical Exam Physical Exam General: Alert, Oriented X3, Cooperative, no distress HEENT: Atraumatic, EOMI Lungs: Bibasilar rales Heart: Irregularly irregular, no rubs Cardiovascular: S1, S2 Abdomen: Normal bowel sounds, Soft, No tenderness Extremities: 3+ Bilateral leg edema Skin: No breakdown, No significant lesion Neuro: Normal speech, Sensation intact Psych/Mental Status: Mental status NL, Mood NL Vitals Vitals Vital Signs Date Time Temp Pulse Resp B/P (MAP) Pulse Ox O2 Delivery O2 Flow Rate FiO2 08/23/21 09:10 Room Air 08/23/21 08:38 69 154/81 08/23/21 08:23 98.5 17 98 98.5 Labs Labs Laboratory Tests Test 08/23/21 02:28 08/23/21 02:40 08/23/21 03:45 08/23/21 06:17 Glucose (Fingerstick) 514 mg/dL (70-99) 353 mg/dL (70-99) White Blood Count 8.4 x10^3/uL (4.0-11.0) Red Blood Count 3.74 x10^6/uL (4.30-5.70) Hemoglobin 11.9 g/dL (13.0-17.5) Hematocrit 33.5 % (39.0-53.0) Mean Corpuscular Volume 90 fL (79-100) Mean Corpuscular Hemoglobin 32 pg (25-35) Mean Corpuscular Hemoglobin Concent 35 g/dL (31-37) Red Cell Distribution Width 14.1 % (11.5-14.5) Platelet Count 247 x10^3/uL (140-400) Neutrophils (%) (Auto) 72 % (31-73) Lymphocytes (%) (Auto) 15 % (24-48) Monocytes (%) (Auto) 8 % (0-9) Eosinophils (%) (Auto) 4 % (0-3) Basophils (%) (Auto) 1 % (0-3) Neutrophils # (Auto) 6.0 x10^3/uL (1.8-7.7) Lymphocytes # (Auto) 1.3 x10^3/uL (1.0-4.8) Monocytes # (Auto) 0.7 x10^3/uL (0.0-1.1) Eosinophils # (Auto) 0.4 x10^3/uL (0.0-0.7) Basophils # (Auto) 0.1 x10^3/uL (0.0-0.2) Sodium Level 132 mmol/L (136-145) Potassium Level 4.2 mmol/L (3.5-5.1) Chloride Level 95 mmol/L (98-107) Carbon Dioxide Level 27 mmol/L (21-32) Anion Gap 10 (6-14) Blood Urea Nitrogen 22 mg/dL (8-26) Creatinine 1.1 mg/dL (0.7-1.3) Estimated GFR (Cockcroft-Gault) 69.5 BUN/Creatinine Ratio 20 (6-20) Glucose Level 494 mg/dL (70-99) Calcium Level 8.9 mg/dL (8.5-10.1) Magnesium Level 1.9 mg/dL (1.8-2.4) Total Bilirubin 1.1 mg/dL (0.2-1.0) Aspartate Amino Transf (AST/SGOT) 8 U/L (15-37) Alanine Aminotransferase (ALT/SGPT) 17 U/L (16-63) Alkaline Phosphatase 99 U/L (46-116) Troponin I High Sensitivity 12 ng/L (4-75) 11 ng/L (4-75) NM-Dtf-L-Type Natriuretic Peptide 2887 pg/mL (0-124) Total Protein 6.7 g/dL (6.4-8.2) Albumin 3.7 g/dL (3.4-5.0) Albumin/Globulin Ratio 1.2 (1.0-1.7) Lipase 126 U/L (73-393) Acetone Level Neg (NEG) Test 08/23/21 08:07 08/23/21 09:20 Glucose (Fingerstick) 332 mg/dL (70-99) Troponin I High Sensitivity 11 ng/L (4-75) Laboratory Tests Test 08/23/21 02:28 08/23/21 02:40 08/23/21 03:45 08/23/21 06:17 Glucose (Fingerstick) 514 mg/dL (70-99) 353 mg/dL (70-99) White Blood Count 8.4 x10^3/uL (4.0-11.0) Red Blood Count 3.74 x10^6/uL (4.30-5.70) Hemoglobin 11.9 g/dL (13.0-17.5) Hematocrit 33.5 % (39.0-53.0) Mean Corpuscular Volume 90 fL (79-100) Mean Corpuscular Hemoglobin 32 pg (25-35) Mean Corpuscular Hemoglobin Concent 35 g/dL (31-37) Red Cell Distribution Width 14.1 % (11.5-14.5) Platelet Count 247 x10^3/uL (140-400) Neutrophils (%) (Auto) 72 % (31-73) Lymphocytes (%) (Auto) 15 % (24-48) Monocytes (%) (Auto) 8 % (0-9) Eosinophils (%) (Auto) 4 % (0-3) Basophils (%) (Auto) 1 % (0-3) Neutrophils # (Auto) 6.0 x10^3/uL (1.8-7.7) Lymphocytes # (Auto) 1.3 x10^3/uL (1.0-4.8) Monocytes # (Auto) 0.7 x10^3/uL (0.0-1.1) Eosinophils # (Auto) 0.4 x10^3/uL (0.0-0.7) Basophils # (Auto) 0.1 x10^3/uL (0.0-0.2) Sodium Level 132 mmol/L (136-145) Potassium Level 4.2 mmol/L (3.5-5.1) Chloride Level 95 mmol/L (98-107) Carbon Dioxide Level 27 mmol/L (21-32) Anion Gap 10 (6-14) Blood Urea Nitrogen 22 mg/dL (8-26) Creatinine 1.1 mg/dL (0.7-1.3) Estimated GFR (Cockcroft-Gault) 69.5 BUN/Creatinine Ratio 20 (6-20) Glucose Level 494 mg/dL (70-99) Calcium Level 8.9 mg/dL (8.5-10.1) Magnesium Level 1.9 mg/dL (1.8-2.4) Total Bilirubin 1.1 mg/dL (0.2-1.0) Aspartate Amino Transf (AST/SGOT) 8 U/L (15-37) Alanine Aminotransferase (ALT/SGPT) 17 U/L (16-63) Alkaline Phosphatase 99 U/L (46-116) Troponin I High Sensitivity 12 ng/L (4-75) 11 ng/L (4-75) ST-Zmz-Y-Type Natriuretic Peptide 2887 pg/mL (0-124) Total Protein 6.7 g/dL (6.4-8.2) Albumin 3.7 g/dL (3.4-5.0) Albumin/Globulin Ratio 1.2 (1.0-1.7) Lipase 126 U/L (73-393) Acetone Level Neg (NEG) Test 08/23/21 08:07 08/23/21 09:20 Glucose (Fingerstick) 332 mg/dL (70-99) Troponin I High Sensitivity 11 ng/L (4-75) Images Images PATIENT: Hua ADAME ACCOUNT: [id number] : 1965 LOCATION: ER AGE: 55 SEX: M EXAM STATUS: REG ER ORD. PHYSICIAN: MARLYN DAVILA DO REASON: chest pain, dizziness, hypertensive urgency PROCEDURE: CT ANGIO CHEST ABD PELVIS Study: CT angiography of the chest, abdomen and pelvis Indication: Chest pain. Dizziness. Hypertensive urgency. Comparison: CT abdomen/pelvis 08/02/2021; CT chest 01/16/2021 Technique: Helical CT imaging performed of the chest, abdomen and pelvis after the intravenous administration of 100 cc Omnipaque 350 contrast. Sagittal and coronal 3D MIP reconstructions were obtained. One or more of the following individualized dose reduction techniques were utilized for this examination: 1. Automated exposure control 2. Adjustment of the mA and/or kV according to patient size 3. Use of iterative reconstruction technique. Findings: Vasculature: Scattered calcified and noncalcified atheromatous plaque to include coronary artery involvement. No aortic aneurysm or dissection. Prominence of the heart. The visualized great vessels are patent. Unchanged main pulmonary artery caliber. No central pulmonary embolism. Incomplete evaluation of the peripheral pulmonary arteries. No flow-limiting stenosis of the abdominal aortic branch vessels. Patent iliac and visualized femoral arteries. Non-vascular Findings: Chest: No pathologically enlarged mediastinal or hilar lymph nodes. Small volume pericardial fluid. A few small pulmonary nodules are unchanged such as right lower lobe on image 69 series 4. No pleural effusion. Patent central airways. Mild body wall edema. Small left thyroid lobe nodule not meeting size criteria for dedicated follow-up. Scattered degenerative/chronic osseous findings. No acute or aggressive abnormality. Abdomen/pelvis: Unchanged mild enlargement of the liver. Hyperdensity fills the gallbladder lumen also seen previously. Nondilated biliary tree. Unchanged pancreas. Unchanged left adrenal gland nodule measuring up to 2.4 cm. Unchanged degree of splenomegaly. Several low-attenuation foci within the kidneys measure no different in size. No hydronephrosis. Unremarkable bladder. Unchanged prostate. Mild constipation. Normal appendix. Nonobstructed small bowel. Unremarkable stomach. Similarly sized lymph nodes. No free fluid or pneumoperitoneum. Mild body wall edema. Scattered degenerative and chronic osseous findings without significant change. Impression: 1. No aortic aneurysm or dissection. No flow-limiting stenosis of the aortic branch vessels. Calcific coronary artery disease. Unchanged prominence of the heart. 2. Redemonstrated and unchanged hepatosplenomegaly. Hyperattenuating material fills the gallbladder lumen which could again represent vicarious excretion of contrast. 3. Mild constipation. 4. Scattered renal cystic foci and a stable left adrenal gland nodule with a density diagnostic of a benign adenoma. PATIENT: Hua ADAME ACCOUNT: [id number] : 1965 LOCATION: ER AGE: 55 SEX: M EXAM STATUS: REG ER ORD. PHYSICIAN: MARLYN DAVILA DO REASON: chest pain PROCEDURE: PORTABLE CHEST 1V Study: XR CHEST 1V Indication: Chest pain. Comparison: None. Findings: Mild enlargement of the cardiomediastinal silhouette. Symmetric remington. No confluent airspace infiltrate, pleural effusion or pneumothorax. Probable enchondroma at the proximal left humerus also seen on the 01/17/2021 CT chest founder and president radiograph. Impression: 1. Prominence of the cardiomediastinal silhouette. No imaging manifestations of overt congestive heart failure/volume overload. 2. Probable enchondroma at the proximal left humerus. No dedicated follow-up is needed unless there is development of pain referrable to this region. VTE Prophylaxis Ordered VTE Prophylaxis Devices: Yes VTE Pharmacological Prophylaxi: No Assessment/Plan Assessment/Plan Hypertensive urgency DM2 with hyperglycemia Diastolic CHF History of TIA Normocytic anemia Plan: Patient is feeling better this morning, some improvement dizziness and headache. After discussion with patient he would prefer to discharge today. Patient states he is already taking two 20 mg tabs of lisinopril twice daily We discussed medication adjustments, including addition of aspirin, Lasix, and chlorthalidone, as well as the importance of monitoring his blood pressure at home. Discussed discontinuing Actos as a diabetes medication due to history of CHF and fluid overloading. Patient states that currently he gets Metformin, Actos, and statin at a [facility] and would prefer the addition of Lasix to discontinuing Actos at this time. We discussed the importance of finding someone to manage hi s chronic conditions on outpatient basis, and patient understood my concerns. Echo 08/04/21 showed moderate concentric left ventricular hypertrophy, EF 60%, normal LV segmental wall motion. He is comfortable with this plan, and can discharge from the hospital today. Justifications for Admission Other Justification MARI GARCIA MD Aug 23, 2021 11:50
--- NOTE | 2021-08-23 11:55 | PDOC3 ---
Discharge Summary Visit Information Date of Admission: Aug 23, 2021 Date of Discharge: Aug 23, 2021 Final Diagnosis Problems Medical Problems: (1) Chest pain Status: Acute (2) Hyperglycemia Status: Acute (3) Hypertension Status: Acute Brief Hospital Course Allergies Allergies Coded Allergies Type Severity Reaction Last Updated Verified No Known Drug Allergies 08/23/21 No Vital Signs Vital Signs Date Time Temp Pulse Resp B/P (MAP) Pulse Ox O2 Delivery O2 Flow Rate FiO2 08/23/21 11:00 97.6 65 18 128/63 (84) 96 Room Air 97.6 Lab Results Laboratory Tests Test 08/23/21 02:28 08/23/21 02:40 08/23/21 03:45 08/23/21 06:17 Glucose (Fingerstick) 514 mg/dL (70-99) 353 mg/dL (70-99) White Blood Count 8.4 x10^3/uL (4.0-11.0) Red Blood Count 3.74 x10^6/uL (4.30-5.70) Hemoglobin 11.9 g/dL (13.0-17.5) Hematocrit 33.5 % (39.0-53.0) Mean Corpuscular Volume 90 fL (79-100) Mean Corpuscular Hemoglobin 32 pg (25-35) Mean Corpuscular Hemoglobin Concent 35 g/dL (31-37) Red Cell Distribution Width 14.1 % (11.5-14.5) Platelet Count 247 x10^3/uL (140-400) Neutrophils (%) (Auto) 72 % (31-73) Lymphocytes (%) (Auto) 15 % (24-48) Monocytes (%) (Auto) 8 % (0-9) Eosinophils (%) (Auto) 4 % (0-3) Basophils (%) (Auto) 1 % (0-3) Neutrophils # (Auto) 6.0 x10^3/uL (1.8-7.7) Lymphocytes # (Auto) 1.3 x10^3/uL (1.0-4.8) Monocytes # (Auto) 0.7 x10^3/uL (0.0-1.1) Eosinophils # (Auto) 0.4 x10^3/uL (0.0-0.7) Basophils # (Auto) 0.1 x10^3/uL (0.0-0.2) Sodium Level 132 mmol/L (136-145) Potassium Level 4.2 mmol/L (3.5-5.1) Chloride Level 95 mmol/L (98-107) Carbon Dioxide Level 27 mmol/L (21-32) Anion Gap 10 (6-14) Blood Urea Nitrogen 22 mg/dL (8-26) Creatinine 1.1 mg/dL (0.7-1.3) Estimated GFR (Cockcroft-Gault) 69.5 BUN/Creatinine Ratio 20 (6-20) Glucose Level 494 mg/dL (70-99) Calcium Level 8.9 mg/dL (8.5-10.1) Magnesium Level 1.9 mg/dL (1.8-2.4) Total Bilirubin 1.1 mg/dL (0.2-1.0) Aspartate Amino Transf (AST/SGOT) 8 U/L (15-37) Alanine Aminotransferase (ALT/SGPT) 17 U/L (16-63) Alkaline Phosphatase 99 U/L (46-116) Troponin I High Sensitivity 12 ng/L (4-75) 11 ng/L (4-75) XF-Pry-C-Type Natriuretic Peptide 2887 pg/mL (0-124) Total Protein 6.7 g/dL (6.4-8.2) Albumin 3.7 g/dL (3.4-5.0) Albumin/Globulin Ratio 1.2 (1.0-1.7) Lipase 126 U/L (73-393) Acetone Level Neg (NEG) Test 08/23/21 08:07 08/23/21 09:20 08/23/21 11:46 Glucose (Fingerstick) 332 mg/dL (70-99) 238 mg/dL (70-99) Troponin I High Sensitivity 11 ng/L (4-75) Laboratory Tests Test 08/23/21 02:28 08/23/21 02:40 08/23/21 03:45 08/23/21 06:17 Glucose (Fingerstick) 514 mg/dL (70-99) 353 mg/dL (70-99) White Blood Count 8.4 x10^3/uL (4.0-11.0) Red Blood Count 3.74 x10^6/uL (4.30-5.70) Hemoglobin 11.9 g/dL (13.0-17.5) Hematocrit 33.5 % (39.0-53.0) Mean Corpuscular Volume 90 fL (79-100) Mean Corpuscular Hemoglobin 32 pg (25-35) Mean Corpuscular Hemoglobin Concent 35 g/dL (31-37) Red Cell Distribution Width 14.1 % (11.5-14.5) Platelet Count 247 x10^3/uL (140-400) Neutrophils (%) (Auto) 72 % (31-73) Lymphocytes (%) (Auto) 15 % (24-48) Monocytes (%) (Auto) 8 % (0-9) Eosinophils (%) (Auto) 4 % (0-3) Basophils (%) (Auto) 1 % (0-3) Neutrophils # (Auto) 6.0 x10^3/uL (1.8-7.7) Lymphocytes # (Auto) 1.3 x10^3/uL (1.0-4.8) Monocytes # (Auto) 0.7 x10^3/uL (0.0-1.1) Eosinophils # (Auto) 0.4 x10^3/uL (0.0-0.7) Basophils # (Auto) 0.1 x10^3/uL (0.0-0.2) Sodium Level 132 mmol/L (136-145) Potassium Level 4.2 mmol/L (3.5-5.1) Chloride Level 95 mmol/L (98-107) Carbon Dioxide Level 27 mmol/L (21-32) Anion Gap 10 (6-14) Blood Urea Nitrogen 22 mg/dL (8-26) Creatinine 1.1 mg/dL (0.7-1.3) Estimated GFR (Cockcroft-Gault) 69.5 BUN/Creatinine Ratio 20 (6-20) Glucose Level 494 mg/dL (70-99) Calcium Level 8.9 mg/dL (8.5-10.1) Magnesium Level 1.9 mg/dL (1.8-2.4) Total Bilirubin 1.1 mg/dL (0.2-1.0) Aspartate Amino Transf (AST/SGOT) 8 U/L (15-37) Alanine Aminotransferase (ALT/SGPT) 17 U/L (16-63) Alkaline Phosphatase 99 U/L (46-116) Troponin I High Sensitivity 12 ng/L (4-75) 11 ng/L (4-75) ZN-Exv-E-Type Natriuretic Peptide 2887 pg/mL (0-124) Total Protein 6.7 g/dL (6.4-8.2) Albumin 3.7 g/dL (3.4-5.0) Albumin/Globulin Ratio 1.2 (1.0-1.7) Lipase 126 U/L (73-393) Acetone Level Neg (NEG) Test 08/23/21 08:07 08/23/21 09:20 08/23/21 11:46 Glucose (Fingerstick) 332 mg/dL (70-99) 238 mg/dL (70-99) Troponin I High Sensitivity 11 ng/L (4-75) Brief Hospital Course Mr. Euceda is a 55 old male who presented with hypertensive urgency, DM2 with hyperglycemia. After discussion with patient he would prefer to discharge today. We discussed medication adjustments, including addition of aspirin, Lasix, and chlorthalidone. Discussed continuing Actos as a diabetes medication due to history of CHF and fluid overloading. Patient states that currently he gets Metformin, Actos, and statin at a [facility] and would prefer the addition of Lasix to discontinuing Actos at this time. We discussed the importance of finding someone to manage his chronic conditions on outpatient basis, and patient understood my concerns. Echo 08/04/21 showed moderate concentric left ventricular hypertrophy, EF 60%, normal LV segmental wall motion. He is comfortable with this plan, and can discharge from the hospital today. Discharge Information Condition at Discharge: Improved Disposition/Orders: D/C to Home Scheduled Aspirin (Aspirin) 325 Mg Tablet, 325 MG PO [id number] for stroke prophylaxisx for 30 Days, #30 Prescribed by: JIMBO CAMPOS MD on 08/07/21 1043 Last Action: Continued on 08/23/21 07 by JIMBO MERCEDES MD Cefdinir (Cefdinir) 300 Mg Capsule, 300 MG PO BID for infection for 3 Days, #6 Prescribed by: JIMBO CAMPOS MD on 08/07/21 1043 Linagliptin (Tradjenta) 5 Mg Tablet, 5 MG PO DAILY for dm2 for 30 Days, #30 Prescribed by: JIMBO CAMPOS MD on 08/07/211042 Last Action: Continued on 08/23/21730 by JIMBO MERCEDES MD Lisinopril (Lisinopril) 40 Mg Tablet, 20 MG PO DAILY for htn for 30 Days, #15 Prescribed by: JIMBO CAMPOS MD on 08/07/211042 Last Action: Continued on 08/23/21730 by JIMBO MERCEDES MD Metformin Hcl (Metformin Hcl) 500 Mg Tablet, 500 MG PO BIDWMEALS for ANTI- DIABETIC, Ref 0 (Reported) Entered as Reported by: OLIVIA CABEZAS on 08/02/211940 Metoprolol Tartrate (Metoprolol Tartrate) 25 Mg Tablet, 25 MG PO BID for htn for 30 Days, #60 Prescribed by: JIMBO CAMPOS MD on 08/07/211042 Last Action: Continued on 08/23/21730 by JIMBO MERCEDES MD Pioglitazone Hcl (Actos) 15 Mg Tablet, 1 TAB PO DAILY for diabetes for 30 Days, #30 Ref 0 (Reported) Entered as Reported by: OLIVIA CABEZAS on 08/02/211940 Last Action: Continued on 08/23/21730 by JIMBO MERCEDES MD Pravastatin Sodium (Pravastatin Sodium) 20 Mg Tablet, 1 TAB PO DAILY for hyperlipidemia, #30 Ref 5 (Reported) Entered as Reported by: OLIVIA CABEZAS on 08/02/211940 Last Action: Converted on 08/23/21730 by JIMBO MERCEDES MD Tamsulosin Hcl (Flomax) 0.4 Mg Cap.er.24h, 0.4 MG PO QHS for bph for 30 Days, #30 Prescribed by: JIMBO CAMPOS MD on 08/07/211042 Last Action: Continued on 08/23/21730 by JIMBO MERCEDES MD Scheduled PRN Tramadol Hcl (Tramadol Hcl) 50 Mg Tablet, 50 MG PO Q6HRS PRN for PAIN, #12 Prescribed by: KATI PATEL on 07/16/211232 Last Action: Continued on 08/23/21730 by JIMBO MERCEDES MD Justicifation of Admission Dx: Justifications for Admission: Justification of Admission Dx: N/A MARI GARCIA MD Aug 23, 2021 11:55
[2021-08-23] MEDS ORDERED: INSULIN LISPRO 300 UNITS/3 ML VIAL. SQ SCH (12:00)
[2021-08-23] MEDS ORDERED: ASPI325T8 PO (12:04)
[2021-08-23] MEDS ORDERED: ATOR40TA59 PO (12:04)
[2021-08-23] MEDS ORDERED: FURO-68 PO (12:04)
[2021-08-23] MEDS ORDERED: METF10007 PO (12:04)
[2021-08-23] MEDS ORDERED: LISI-130 PO (12:04)
[2021-08-23] MEDS ORDERED: CHLO25TA10 PO (12:04)
--- NOTE | 2021-08-23 15:58 | NUR ---
Discharge Note: PT DISCHARGED HOME WITH SELF CARE. PT LEFT FACILITY VIA [facility] CAB AT 1550. PT STABLE AND ALERT UPON DISCHARGE. PT PIV REMOVED FROM L AC WITHOUT COMPLICATIONS, BANDAGE APPLIED. PT TELE MONITOR REMOVED. PT EDUCATED ABOUT DISCHARGE INSTRUCTIONS, DISCHARGE MEDICATIONS, AND FOLLOW-UP CARE INSTRUCTIONS. NO CONCERNS VOICED AT THIS TIME. PT LEFT WITH ALL PERSONAL BELONGINGS. Hua ADAME Discharge instructions and discharge home medications reviewed with Patient and a copy given. All questions have been answered and understanding verbalized.
[2021-08-23] MEDS ORDERED: ATORVASTATIN CALCIUM 10 MG TABLET. PO SCH (21:00)
[2021-08-23] MEDS ORDERED: TAMSULOSIN 0.4 MG CAP.ER.24H. PO SCH (21:00)
[2021-08-23] MEDS ORDERED: INSULIN GLARGINE SYRINGE. SQ SCH (21:00)
== END 2021-08-23 16:01 | disposition home or self-care (01) ==
LOC: ER 02:20 → 2 NORTH 05:54
PROVIDERS: ADMIT Internal Medicine; ATTEND Internal Medicine
DX: R07.89 Other chest pain (principal); I16.0 Hypertensive urgency; I11.0 Hypertensive heart disease with heart failure; I50.30 Unspecified diastolic (congestive) heart failure; E11.65 Type 2 diabetes mellitus with hyperglycemia; D64.9 Anemia, unspecified; I25.10 Atherosclerotic heart disease of native coronary artery without angina pectoris; E11.40 Type 2 diabetes mellitus with diabetic neuropathy, unspecified; I48.91 Unspecified atrial fibrillation; E78.5 Hyperlipidemia, unspecified; E27.8 Other specified disorders of adrenal gland; F32.A Depression, unspecified; K59.00 Constipation, unspecified; M19.90 Unspecified osteoarthritis, unspecified site; K80.80 Other cholelithiasis without obstruction; N40.0 Benign prostatic hyperplasia without lower urinary tract symptoms; Z79.84 Long term (current) use of oral hypoglycemic drugs; Z79.899 Other long term (current) drug therapy; Z86.73 Personal history of transient ischemic attack (TIA), and cerebral infarction without residual deficits; Z87.891 Personal history of nicotine dependence; Z90.49 Acquired absence of other specified parts of digestive tract; Z98.890 Other specified postprocedural states
CPT/HCPCS: 36415; 70450; 71045; 71275; 74174; 80053; 82010; 82962; 83690; 83735; 83880; 84484; 85025; 93005; 96372; 96374; 96375; 99285; G0378; J1815; J3490; Q9967; G0379

== ENCOUNTER 2021-08-26 09:37 | Inpatient (IN) | payer MEDICAID, OTHER ==
[~2021-08-26] VITALS: Ht 177.8 cm; Wt 119.0 kg
[~2021-08-26 09:37] MED LIST changes: +ATOR40TA59 PO; +CHLO25TA10 PO; +FURO-68 PO; +METF10007 PO
[2021-08-26] MEDS ORDERED: IV NORMAL SALINE 1000ML BAG 1,000 ML IV ONE (10:00)
[2021-08-26] MEDS ORDERED: ASPIRIN CHEWABLE 81 MG TABLET. PO ONE (10:00)
[2021-08-26] MEDS ORDERED: hydrALAZINE 20 MG/ML VIAL. IVP ONE (10:00)
--- NOTE | 2021-08-26 10:08 | PHYS DOC ---
Past Medical History Past Medical History: Arthritis, CHF, Diabetes-Type II, Gallstones, Hyper tension Additional Past Medical Histor: neuropathy, torn retina left eye Past Surgical History: Tonsillectomy, Other Additional Past Surgical Histo: secondaryto my DM foot and knee surgery, kidney Smoking Status: Never Smoker Alcohol Use: None General Adult EDM: Chief Complaint: WEAKNESS/GENERALIZED HPI: HPI: Patient is a 56-year-old male who presents today with an episode of chest pain and generalized not feeling well. Patient states that this morning he woke up and had some chest pain, and he felt that his blood pressure was elevated, he states that he called 911 because he does not have access to a primary care physician. While reviewing patient's past medical records patient was here on August 23, 2021 for similar concerns related to his blood pressure and his blood sugar being elevated, he was discharged the same day with instructions to follow-up with a primary care physician, he has not done so, he says he has not been taking his medications as directed. Patient does have a past medical history of diabetes, congestive heart failure, and hypertension. Review of Systems: Review of Systems: Constitutional: Denies fever or chills. [] Eyes: Denies change in visual acuity. [] HENT: Denies nasal congestion or sore throat. [] Respiratory: Denies cough or shortness of breath. [] Cardiovascular: chest pain GI: Denies abdominal pain, nausea, vomiting, bloody stools or diarrhea. [] : Denies dysuria. [] Musculoskeletal: Denies back pain or joint pain. [] Integument: Denies rash. [] Neurologic: Denies headache, focal weakness or sensory changes. [] Endocrine: Elevated blood sugar denies polyuria or polydipsia. [] Lymphatic: Denies swollen glands. [] Psychiatric: Denies depression or anxiety. [] Heart Score: C/O Chest Pain: Yes HEART Score for Chest Pain: HEART Score for Chest Pain Response (Comments) Value History Moderately Suspicious 1 ECG Nonspecific Repolarizatio 1 Age >45 - < 65 1 Risk Factors >3 Risk Factors or Hx CAD 2 Troponin < Normal Limit 0 Total 5 Risk Factors: Risk Factors: DM, Current or recent (<one month) smoker, HTN, HLP, family history of CAD, obesity. Risk Scores: Score 0 - 3: 2.5% MACE over next 6 weeks - Discharge Home Score 4 - 6: 20.3% MACE over next 6 weeks - Admit for Clinical Observation Score 7 - 10: 72.7% MACE over next 6 weeks - Early Invasive Strategies Current Medications: Current Medications Medications (Trade) Dose Ordered Sig/Norma Start Time Stop Time Status Last Admin Dose Admin Aspirin (Aspirin Chewable) 324 mg 1X ONCE 08/26/21 10:00 08/26/21 10:01 DC Hydralazine HCl (Apresoline Inj) 10 mg 1X ONCE 08/26/21 10:00 08/26/21 10:01 DC Sodium Chloride 1,000 ml @ 999 mls/hr 1X ONCE 08/26/21 10:00 08/26/21 11:00 Allergies: Allergies: Allergies Coded Allergies Type Severity Reaction Last Updated Verified No Known Drug Allergies 08/23/21 No Physical Exam: PE: Constitutional: Well developed, well nourished, no acute distress, non-toxic appearance. [] HENT: Normocephalic, atraumatic, bilateral external ears normal, oropharynx moist, no oral exudates, nose normal. [] Eyes: PERRLA, EOMI, conjunctiva normal, no discharge. [] Neck: Normal range of motion, no tenderness, supple, no stridor. [] Cardiovascular:Heart rate regular rhythm, no murmur [] Lungs & Thorax: Bilateral breath sounds diminshed Abdomen: Bowel sounds normal, soft, no tenderness, no masses, no pulsatile masses. [] Skin: Warm, dry, no erythema, no rash. [] Back: No tenderness, no CVA tenderness. [] Extremities: No tenderness, no cyanosis, no clubbing, ROM intact, no edema. [] Neurologic: Alert and oriented X 3, normal motor function, normal sensory function, no focal deficits noted. [] Psychologic: Affect normal, judgement normal, mood normal. [] Current Patient Data: Labs: Laboratory Tests Test 08/26/21 10:02 08/26/21 10:05 08/26/21 11:15 Glucose (Fingerstick) 472 mg/dL White Blood Count 4.4 x10^3/uL Red Blood Count 3.14 x10^6/uL Hemoglobin 10.0 g/dL Hematocrit 27.9 % Mean Corpuscular Volume 89 fL Mean Corpuscular Hemoglobin 32 pg Mean Corpuscular Hemoglobin Concent 36 g/dL Red Cell Distribution Width 13.8 % Platelet Count 210 x10^3/uL Neutrophils (%) (Auto) 67 % Lymphocytes (%) (Auto) 13 % Monocytes (%) (Auto) 17 % Eosinophils (%) (Auto) 2 % Basophils (%) (Auto) 1 % Neutrophils # (Auto) 2.9 x10^3/uL Lymphocytes # (Auto) 0.6 x10^3/uL Monocytes # (Auto) 0.7 x10^3/uL Eosinophils # (Auto) 0.1 x10^3/uL Basophils # (Auto) 0.0 x10^3/uL Prothrombin Time 13.4 SEC Prothromb Time International Ratio 1.1 Activated Partial Thromboplast Time 28 SEC D-Dimer (Galina) 0.34 ug/mlFEU Sodium Level 130 mmol/L Potassium Level 4.5 mmol/L Chloride Level 97 mmol/L Carbon Dioxide Level 27 mmol/L Anion Gap 6 Blood Urea Nitrogen 28 mg/dL Creatinine 1.2 mg/dL Estimated GFR (Cockcroft-Gault) 62.6 BUN/Creatinine Ratio 23 Glucose Level 470 mg/dL Calcium Level 8.1 mg/dL Total Bilirubin 1.0 mg/dL Aspartate Amino Transf (AST/SGOT) 11 U/L Alanine Aminotransferase (ALT/SGPT) 16 U/L Alkaline Phosphatase 81 U/L Troponin I High Sensitivity 13 ng/L NC-Uxm-K-Type Natriuretic Peptide 1795 pg/mL Total Protein 6.2 g/dL Albumin 2.9 g/dL Albumin/Globulin Ratio 0.9 O2 Saturation 95 % Arterial Blood pH 7.44 Arterial Blood pCO2 at Patient Temp 35 mmHg Arterial Blood pO2 at Patient Temp 84 mmHg Arterial Blood HCO3 23 mmol/L Arterial Blood Base Excess -1 mmol/L FiO2 21 Current Medications Medications (Trade) Dose Ordered Sig/Norma Route PRN Reason Start Time Stop Time Status Last Admin Dose Admin Aspirin (Aspirin Chewable) 324 mg 1X ONCE PO 08/26/21 10:00 08/26/21 10:01 DC 08/26/21 10:11 Hydralazine HCl (Apresoline Inj) 10 mg 1X ONCE IVP 08/26/21 10:00 08/26/21 10:01 DC 08/26/21 10:11 Sodium Chloride 1,000 ml @ 999 mls/hr 1X ONCE IV 08/26/21 10:00 08/26/21 11:00 DC 08/26/21 10:11 Vital Signs: Vital Signs Date Time Temp Pulse Resp B/P (MAP) Pulse Ox O2 Delivery O2 Flow Rate FiO2 08/26/21 12:10 72 22 184/88 (120) 99 Room Air 08/26/21 11:49 75 22 184/89 (120) 99 Room Air 08/26/21 11:10 75 22 177/84 (115) 99 Room Air 08/26/21 10:40 80 22 187/91 (123) 97 Room Air 08/26/21 10:11 78 185/88 08/26/21 09:38 98.3 82 18 201/102 (135) 99 Room Air 98.3 Vital Signs Date Time Temp Pulse Resp B/P (MAP) Pulse Ox O2 Delivery O2 Flow Rate FiO2 08/26/21 09:38 98.3 82 18 201/102 (135) 99 Room Air 98.3 EKG: EKG: EKG done at [address] Samaniego at 1015 sinus rhythm with a right bundle branch block at a rate of 78 with a QTC of 448 no STEMI [] Radiology/Procedures: Radiology/Procedures: [REASON: chest pain PROCEDURE: PORTABLE CHEST 1V AP chest. HISTORY: Chest pain AP view was taken of the chest. Patient's taken a poor inspiration. There is no pleural effusion. Heart is upper normal in size. There is slight interstitial prominence from crowding of the vascular vessels from poor inspiration or mild infiltrates or edema. PA and lateral views with better inspiration could be of benefit. IMPRESSION: 1. Poor inspiration. 2. Mild hazy interstitial changes from poor inspiration or mild infiltrates or edema. Electronically signed by: Gregg Degroot MD (08/26/2021 11:18 AM) [id number] ] Course & Med Decision Making: Course & Med Decision Making Pertinent Labs and Imaging studies reviewed. (See chart for details) [[address] Tobin regarding this patient he is agreeable to admitting patient for chest pain and to help with gaining patient medical management for follow-up on an outpatient basis. I did review laboratory and radiology results with patient did inform him due to the fact that he woke up with chest pain and his blood pressure was markedly elevated when he arrived that admission for further medical management is advised, patient is agreeable to admitting. Dragon Disclaimer: Dragon Disclaimer: This electronic medical record was generated, in whole or in part, using a voice recognition dictation system. Departure Departure Impression: Primary Impression: Chest pain Qualified Codes: R07.9 - Chest pain, unspecified Additional Impressions: Hyperglycemia Hypertension Qualified Codes: I10 - Essential (primary) hypertension Disposition: 09 ADMITTED INPATIENT Admitting Physician: QUENTIN Condition: STABLE Referrals: NO PCP (PCP) KORINA PALMA [employer]UT[employer] SPECIALIST Aug 26, 2021 10:08
[2021-08-26 10:28] LABS: BASO % 1 % (0-3); EOS # 0.1 x10^3/uL (0.0-0.7); EOS % 2 % (0-3); HEMATOCRIT 27.9 % (39.0-53.0); LYMPH # 0.6 x10^3/uL (1.0-4.8); LYMPH % 13 % (24-48); MEAN CORPUSCULAR HEMOGLOBIN 32 pg (25-35); MEAN CORPUSCULAR HGB CONC 36 g/dL (31-37); MEAN CORPUSCULAR VOLUME 89 fL (79-100); MONO # 0.7 x10^3/uL (0.0-1.1); MONO % 17 % (0-9); NEUT # 2.9 x10^3/uL (1.8-7.7); NEUT % 67 % (31-73); PLATELET COUNT 210 x10^3/uL (140-400); RED BLOOD COUNT 3.14 x10^6/uL (4.30-5.70); RED CELL DISTRIBUTION WIDTH 13.8 % (11.5-14.5); WHITE BLOOD COUNT 4.4 x10^3/uL (4.0-11.0)
[2021-08-26 10:34] LABS: PROTHROMBIN TIME PATIENT 13.4 SEC (11.7-14.0)
--- NOTE | 2021-08-26 10:35 | EKG ---
[facility] [address] [place] [address] Test Date: 2021-08-26 Test Time: 10:13:25 Pat Name: Hua ADAME Department: Room: Gender: Eap Clinician: : [id number] Requested By: KORINA PALMA Order Number: [id number] Reading MD: Isiah Stevens Measurements Intervals [place] Rate: 78 P: [place]: QRS: -38 QRSD: 102 T: 106 QT: 390 QTc: 448 Interpretive Statements SINUS RHYTHM ABNORMAL LEFT AXIS DEVIATION LEFT ANTERIOR FASCICULAR BLOCK T ABNORMALITY IN HIGH LATERAL LEADS ABNORMAL ECG Electronically Signed On 08-27-2021 18:12:02 CDT by Isiah Stevens
[2021-08-26 10:44] LABS: D-DIMER 0.34 ug/mlFEU (0.00-0.50)
[2021-08-26 10:57] LABS: CALCIUM 8.1 mg/dL (8.5-10.1); CREATININE 1.2 mg/dL (0.7-1.3); GFR 62.6; POTASSIUM 4.5 mmol/L (3.5-5.1)
[2021-08-26 11:05] LABS: ALBUMIN 2.9 g/dL (3.4-5.0); ALBUMIN/GLOBULIN RATIO 0.9 (1.0-1.7); TOTAL PROTEIN 6.2 g/dL (6.4-8.2)
--- NOTE | 2021-08-26 11:21 | RAD ---
AP chest. HISTORY: Chest pain AP view was taken of the chest. Patient's taken a poor inspiration. There is no pleural effusion. Hea rt is upper normal in size. There is slight interstitial prominence from crowding of the vascular ves sels from poor inspiration or mild infiltrates or edema. PA and lateral views with better inspiration could be of benefit. IMPRESSION: 1. Poor inspiration. 2. Mild hazy interstitial changes from poor inspiration or mild infiltrates or edema. Electronically signed by: Gregg Degroot MD (08/26/2021 11:18 AM) [id number]
[2021-08-26 11:27] LABS: BASE EXCESS ABG -1 mmol/L (-3-3); HCO3 ABG 23 mmol/L (21-28); PCO2 ABG 35 mmHg (35-46); PO2 ABG 84 mmHg (75-108); SAT O2 ABG 95 % (92-99)
[2021-08-26 11:30] LABS: FIO2 ABG 21
[2021-08-26 12:10] LABS: INFLUENZA A PATIENT NEGATIVE (NEGATIVE); INFLUENZA B PATIENT NEGATIVE (NEGATIVE)
--- NOTE | 2021-08-26 13:30 | NUR ---
ADMIT PT ARRIVES FROM ED AT 1324. HE IS ON RA, ABLE TO AMBULATE ET TRANSFER AD AMBERLY. VS ASSESSED, ET TELE INITIATED. ADMISSION QEUSTIONS ADDRESSED AT THIS TIME. COVID (+) RAPID, PRECAUTIONS EXPLAINED ET PCR PENDING. CALL LIGHT IN REACH.
[2021-08-26] MEDS ORDERED: DEXTROSE 50% 25 GM / 50ML DISP.SYRIN. IV PRN (14:15)
[2021-08-26] MEDS ORDERED: IV DEXTROSE 5% 250 ML BAG. IV PRN (14:15)
[2021-08-26] MEDS ORDERED: FUROSEMIDE 40 MG TABLET. PO PRN (14:30)
[2021-08-26] MEDS ORDERED: INSULIN LISPRO 300 UNITS/3 ML VIAL. SQ ONE (14:30)
[2021-08-26 14:54] VITALS: BP 196/98
[2021-08-26] MEDS: AZITHROMYCIN 250 MG TABLET. PO SCH (15:18)
[2021-08-26] MEDS: methylPREDNISolone 4 MG TABLET. PO SCH ×4 (15:18→21:21)
--- NOTE | 2021-08-26 15:42 | PDOC2 ---
CARDIAC CONSULT DATE OF CONSULT Date of Consult DATE: 08/26/21 TIME: 15:33 REASON FOR CONSULT Reason for Consult: Chest pain REFERRING PHYSICIAN Referring Physician: Dr. Tobin SOURCE Source: Chart review, Patient HISTORY OF PRESENT ILLNESS HISTORY OF PRESENT ILLNESS This is a 56 yo male who presented secondary to nausea/vomiting, shortness of breath, and intermittent chest pressure. Patient reports symptoms began about 3 am this morning. Had some intermittent pressure in his central chest. Has had similar pressure previously when his blood pressure was significantly elevated. Blood pressure was significantly elevated upon arrival. Reports blood pressure is always high. Reports compliance with medication. Rapid COVID was noted to be +. He denies any dizziness, diaphoresis, or palpitations. Does reports mild co ugh with white sputum productive. PAST MEDICAL HISTORY Cardiovascular: AFIB, CHF, HTN, Hyperlipidemia CENTRAL NERVOUS SYSTEM: Periperal neuropathy Psych: Anxiety, Depression Musculoskeletal: Osteoarthritis Renal/: Chronic renal insuff Endocrine: Diabetes PAST SURGICAL HISTORY Past Surgical History: Tonsillectomy, Other (retinal detachment ) FAMILY HISTORY Family History: Hypertension SOCIAL HISTORY Smoke: Quit ALCOHOL: none Drugs: None Lives: [facility] ) CURRENT MEDICATIONS CURRENT MEDICATIONS Current Medications Medications (Trade) Dose Ordered Sig/Norma Route PRN Reason Start Time Stop Time Status Last Admin Dose Admin Aspirin (Aspirin Chewable) 324 mg 1X ONCE PO 08/26/21 10:00 08/26/21 10:01 DC 08/26/21 10:11 Hydralazine HCl (Apresoline Inj) 10 mg 1X ONCE IVP 08/26/21 10:00 08/26/21 10:01 DC 08/26/21 10:11 Sodium Chloride 1,000 ml @ 999 mls/hr 1X ONCE IV 08/26/21 10:00 08/26/21 11:00 DC 08/26/21 10:11 Insulin Human Lispro (HumaLOG) 20 units 1X ONCE SQ 08/26/21 14:30 08/26/21 14:41 DC 08/26/21 14:34 Azithromycin (Zithromax) 250 mg DAILY PO 08/26/21 15:00 08/26/21 15:18 Methylprednisolone (Medrol) 8 mg BID PO 08/26/21 15:00 08/26/21 21:01 08/26/21 15:18 ALLERGIES ALLERGIES: Coded Allergies: No Known Drug Allergies (Unverified , 08/23/21) ROS Review of System 14 point ROS conducted with pertinent positives noted above in HPI PHYSICAL EXAM PHYSICAL EXAM General: Alert, Oriented X3, Cooperative, No acute distress HEENT: Atraumatic Lungs: Clear to auscultation Heart: Regular rate Abdomen: Soft, No tenderness Extremities: No edema Skin: No breakdown Neuro: Normal speech, Sensation intact Psych/Mental Status: Mental status NL, Mood NL MUSCULOSKELETAL: Osteoarthritic changes both hands VITALS/I&O VITALS/I&O: Vital Signs Date Time Temp Pulse Resp B/P (MAP) Pulse Ox O2 Delivery O2 Flow Rate FiO2 08/26/21 14:54 97.7 73 18 196/98 (130) 99 Room Air 97.7 LABS Lab: Laboratory Tests Test 08/26/21 10:02 08/26/21 10:05 08/26/21 11:15 08/26/21 11:36 Glucose (Fingerstick) 472 mg/dL (70-99) H White Blood Count 4.4 x10^3/uL (4.0-11.0) Red Blood Count 3.14 x10^6/uL (4.30-5.70) L Hemoglobin 10.0 g/dL (13.0-17.5) L Hematocrit 27.9 % (39.0-53.0) L Mean Corpuscular Volume 89 fL (79-100) Mean Corpuscular Hemoglobin 32 pg (25-35) Mean Corpuscular Hemoglobin Concent 36 g/dL (31-37) Red Cell Distribution Width 13.8 % (11.5-14.5) Platelet Count 210 x10^3/uL (140-400) Neutrophils (%) (Auto) 67 % (31-73) Lymphocytes (%) (Auto) 13 % (24-48) L Monocytes (%) (Auto) 17 % (0-9) H Eosinophils (%) (Auto) 2 % (0-3) Basophils (%) (Auto) 1 % (0-3) Neutrophils # (Auto) 2.9 x10^3/uL (1.8-7.7) Lymphocytes # (Auto) 0.6 x10^3/uL (1.0-4.8) L Monocytes # (Auto) 0.7 x10^3/uL (0.0-1.1) Eosinophils # (Auto) 0.1 x10^3/uL (0.0-0.7) Basophils # (Auto) 0.0 x10^3/uL (0.0-0.2) Prothrombin Time 13.4 SEC (11.7-14.0) Prothrombin Time INR 1.1 (0.8-1.1) Activated Partial Thromboplast Time 28 SEC (24-38) D-Dimer (Galina) 0.34 ug/mlFEU (0.00-0.50) Sodium Level 130 mmol/L (136-145) L Potassium Level 4.5 mmol/L (3.5-5.1) Chloride Level 97 mmol/L (98-107) L Carbon Dioxide Level 27 mmol/L (21-32) Anion Gap 6 (6-14) Blood Urea Nitrogen 28 mg/dL (8-26) H Creatinine 1.2 mg/dL (0.7-1.3) Estimated GFR (Cockcroft-Gault) 62.6 BUN/Creatinine Ratio 23 (6-20) H Glucose Level 470 mg/dL (70-99) H Calcium Level 8.1 mg/dL (8.5-10.1) L Total Bilirubin 1.0 mg/dL (0.2-1.0) Aspartate Amino Transferase (AST) 11 U/L (15-37) L Alanine Aminotransferase (ALT) 16 U/L (16-63) Alkaline Phosphatase 81 U/L (46-116) Troponin I High Sensitivity 13 ng/L (4-75) OV-Vma-K-Type Natriuretic Peptide 1795 pg/mL (0-124) H Total Protein 6.2 g/dL (6.4-8.2) L Albumin 2.9 g/dL (3.4-5.0) L Albumin/Globulin Ratio 0.9 (1.0-1.7) L O2 Saturation 95 % (92-99) Arterial Blood pH 7.44 (7.35-7.45) Arterial Blood pCO2 at Patient Temp 35 mmHg (35-46) Arterial Blood pO2 at Patient Temp 84 mmHg (75-108) Arterial Blood HCO3 23 mmol/L (21-28) Arterial Blood Base Excess -1 mmol/L (-3-3) FiO2 21 Influenza Type A Antigen Negative (NEGATIVE) Influenza Type B Antigen Negative (NEGATIVE) SARS-CoV-2 Antigen (Rapid) Positive (NEGATIVE) *A Test 08/26/21 14:10 Troponin I High Sensitivity 13 ng/L (4-75) Laboratory Tests 08/26/21 10:05 Laboratory Tests 08/26/21 10:05 ECHOCARDIOGRAM ECHOCARDIOGRAM <Conclusion> There is moderate concentric left ventricular hypertrophy. The left ventricular systolic function is normal and the ejection fraction is within normal range. Estimated ejection fraction 60%. There is normal LV segmental wall motion. DATE: 08/04/21 1550 ASSESSMENT/PLAN ASSESSMENT/PLAN 1. Chest pain; trop negative x2 .Most probably secondary to #2. Stress test 11/27 at [facility] that was reportedly normal 2. Hypertensive urgency 3. Chronic diastolic CHF; recent echo with LVEF 60%. no WMA 4. Hyperlipidemia; statin 5. Diabetes, II. uncontrolled. as per IM 6. PAFIB; presently SR. previously on Xarelto for stroke prophylaxis, but no longer takes. On ASA therapy 7. Anxiety, depression, homelessness. resides at [facility] 7. Rapid COVID + Recommendations Resume ASA, statin BP control. Resume home therapy and titrate as warranted Add hydralazine for BP control Hydralazine IV PRN Trend trop for completeness BB for rate control Outpatient ischemic evaluation Supportive care ALIN JOINER APRN Aug 26, 2021 15:42
--- NOTE | 2021-08-26 16:47 | HP ---
DATE OF SERVICE: 08/26/2021 ADMIT DATE: 08/26/2021 CHIEF COMPLAINT: Weakness. HISTORY OF PRESENT ILLNESS: The patient is a pleasant 56-year-old male who is noncompliant. He has not been taking his meds for a while. His glucose today is 470. He also has some chest pain and hypertension. His blood pressure is up to 201/110. He was recently admitted and discharged with the same workup for chest pain. I discussed the case with ER physician. We are going to admit the patient and get his pressures down and get his glucose under control and consult Cardiology for his chest pain. PAST MEDICAL HISTORY: Arthritis, CHF, noncompliance, diabetes, gallstones, hypertension, neuropathy, retinal tear, tonsillectomy, diabetes, foot and knee surgery, kidney surgery. ALLERGIES: None. FAMILY HISTORY: Diabetes. SOCIAL HISTORY: Does not drink, smoke or take drugs. Used to work at [employer], states he is not doing anything right now. MEDICATIONS: Reviewed, please refer to the MRAD. REVIEW OF SYSTEMS: GENERAL: He complains of weakness. SKIN: No bruising, hair changes or rashes. EYES: No blurred, double or loss of vision. NOSE AND THROAT: No history of nosebleeds, hoarseness or sore throat. HEART: He complains of chest pain. LUNGS: Denies cough, hemoptysis, wheezing or shortness of breath. GASTROINTESTINAL: Denies changes in appetite, nausea, vomiting, diarrhea or constipation. GENITOURINARY: No history of frequency, urgency, hesitancy or nocturia. NEUROLOGIC: Denies history of numbness, tingling, tremor or weakness. PSYCHIATRIC: No history of panic, anxiety or depression. ENDOCRINE: No history of heat or cold intolerance, polyuria or polydipsia. EXTREMITIES: Denies muscle weakness, joint pain, pain on walking or stiffness. PHYSICAL EXAMINATION: VITALS: Within normal limits and are stable. GENERAL: No apparent distress. Alert and oriented. HEENT: Normal cephalic atraumatic, external auditory canals are patent. EYES: Extraocular muscles are intact, pupils are equally round and reactive to light and accommodation. MUSCULOSKELETAL: Well developed, well nourished, good range of motion. ENDOCRINE: No thyromegaly was palpated. LYMPHATICS: No cervical chain or axillary nodes were noted. HEMATOPOIETIC: No bruising. NECK: Supple, no JVD, no thyromegaly was noted. LUNGS: Clear to auscultation in all lung andrews without rhonchi or wheezing. HEART: RRR, S1, S2 present. Peripheral pulses intact, no obvious murmurs were noted. ABDOMEN: Soft, nontender. Positive bowel sounds no organomegaly, normal bowel sounds. EXTREMITIES: Without any cyanosis, clubbing, or edema. Pedal pulses intact, Homans sign is negative. NEUROLOGIC: Normal speech, normal tone. A and O x 3, moves all extremities, no obvious focal deficits. PSYCHIATRIC: Normal affect, normal mood. Stable. SKIN: No ulcerations or rashes, good skin turgor, no jaundice. VASCULAR: Good capillary refill, neurovascular bundle appears to be intact. LABORATORY DATA: Hemoglobin is 10. Sodium is 130, potassium 4.5, chloride 97, bicarb 27, BUN 28, creatinine 1.2, glucose 470. INR is 1.1. COVID testing is surprisingly negative as the rapid test. We are awaiting the PCR. Influenza testing is negative. Chest x-ray shows a poor inspiratory effort with mild hazy interstitial changes or mild infiltrates or edema. ASSESSMENT AND PLAN: Weakness, chest pain, hyperglycemia, hypertensive urgency noncompliance and incidental finding of COVID testing positive on his rapid COVID. For now, we have him in respiratory isolation while we are awaiting the PCR test for his COVID. Sliding scale insulin. Serial enzymes, serial EKGs. We are going to resume his home meds, which should drop his pressure and hopefully that will control. If not, we will add an extra antihypertensives. Continue other home meds. DVT prophylaxis. Full Code. Trend labs. P.r.n. codeine cough syrup, empiric Z-SUMMER, empiric Medrol Dosepak, vitamins. [facility] [place] DR: GILMA/adair TID: [id number]
[2021-08-26] MEDS: metFORMIN 500 MG TABLET PO SCH (17:23)
[2021-08-26] MEDS: hydrALAZINE 20 MG/ML VIAL. IVP PRN (17:24)
[2021-08-26] MEDS: INSULIN LISPRO 300 UNITS/3 ML VIAL. SQ SCH (17:41)
[2021-08-26 18:57] VITALS: BP 181/87
[2021-08-26] MEDS: METOPROLOL TART IMMED RELEASE 25 MG TABLET. PO SCH (21:00)
[2021-08-26] MEDS: TAMSULOSIN 0.4 MG CAP.ER.24H. PO SCH (21:21)
[2021-08-26] MEDS: LISINOPRIL 20 MG TABLET PO SCH (21:23)
[2021-08-26 22:29] VITALS: BP 149/77
[2021-08-27 02:29] VITALS: BP 137/67
[2021-08-27 07:00] VITALS: BP 207/112
[2021-08-27] MEDS: CHLORTHALIDONE 25 MG TABLET. PO SCH (07:52)
[2021-08-27] MEDS: METOPROLOL TART IMMED RELEASE 25 MG TABLET. PO SCH ×2 (07:53→21:05)
[2021-08-27] MEDS: LINAGLIPTIN 5 MG TABLET PO SCH (07:53)
[2021-08-27] MEDS: PIOGLITAZONE 15 MG TABLET. PO SCH (07:53)
[2021-08-27] MEDS: methylPREDNISolone 4 MG TABLET. PO SCH ×3 (07:54→16:49)
[2021-08-27] MEDS: LISINOPRIL 20 MG TABLET PO SCH ×2 (07:54→21:06)
[2021-08-27] MEDS: ASPIRIN 325 MG TABLET PO SCH (07:54)
[2021-08-27] MEDS: MULTIVITAMIN with MINERAL TABLET. PO SCH (07:54)
[2021-08-27] MEDS: metFORMIN 500 MG TABLET PO SCH ×2 (07:54→16:49)
[2021-08-27] MEDS: ATORVASTATIN CALCIUM 40 MG TABLET. PO SCH (07:55)
[2021-08-27] MEDS: AZITHROMYCIN 250 MG TABLET. PO SCH (07:55)
[2021-08-27] MEDS: INSULIN LISPRO 300 UNITS/3 ML VIAL. SQ SCH ×4 (07:56→16:51)
[2021-08-27] MEDS ORDERED: ASPIRIN CHEWABLE 81 MG TABLET. PO SCH (08:00)
[2021-08-27 10:59] VITALS: BP 196/92
[2021-08-27] MEDS: hydrALAZINE 20 MG/ML VIAL. IVP PRN (11:47)
--- NOTE | 2021-08-27 12:18 | PDOC ---
ALIN JOINER JOE 08/27/21 1218: CARDIO Progress Notes Date and Time Date of Service 08/27/21 Time of Evaluation 1215 Subjective Subjective: No Chest Pain, No shortness of breath, No Palpitations Vitals Vitals Vital Signs Date Time Temp Pulse Resp B/P (MAP) Pulse Ox O2 Delivery O2 Flow Rate FiO2 08/27/21 11:47 70 196/92 08/27/21 10:59 97.9 18 99 Room Air 97.9 Weight Weight [ ] Input and Output Intake and Output Intake and Output 08/27/21 07:00 Intake Total 1677 ml Output Total 225 ml Balance 1452 ml Intake Oral 677 ml IV Total 1000 ml Output Urine Total 225 ml Laboratory Labs Laboratory Tests Test 08/26/21 14:10 08/26/21 15:45 08/26/21 17:32 08/26/21 19:54 Troponin I High Sensitivity 13 ng/L (4-75) 13 ng/L (4-75) Glucose (Fingerstick) 283 mg/dL (70-99) 199 mg/dL (70-99) Test 08/27/21 07:43 08/27/21 10:52 Glucose (Fingerstick) 273 mg/dL (70-99) 332 mg/dL (70-99) Physical Exam HEENT: Neck Supple W Full Motion Chest: Symmetric LUNGS: Clear to Auscultation Heart: RRR Abdomen: Soft N/T Extremities: No Edema Neurology: alert, oriented, follow commands, other (flat affect ) Assessment Assessment 1. Chest pain; AMI ruled out. Most probably secondary to #2. Stress test 11/27 at [facility] that was reportedly normal 2. Hypertensive urgency; labile 3. Chronic diastolic CHF; recent echo with LVEF 60%. no WMA. clinically compensated 4. Hyperlipidemia; statin 5. Diabetes, II. uncontrolled. as per IM 6. PAFIB; presently SR. previously on Xarelto for stroke prophylaxis, but no longer takes. On ASA therapy 7. Anxiety, depression, homelessness. resides at [facility] [employer] 7. Rapid COVID + Recommendations ASA, statin BP control. Add amlodipine BB for rate control Outpatient ischemic evaluation Supportive care Justicifation of Admission Dx: Justifications for Admission: Justification of Admission Dx: N/A VICTOR MANUEL ARGUETA MD 08/28/21 0905: CARDIO Progress Notes Assessment Assessment The patient was seen and examined on 08/27/2021. He is feeling mildly better. I agree with our nurse practitioners assessment and plan. Chest pain; AMI ruled out. Most probably secondary to elevated blood pressure. Stress test 11/27 at [facility] that was reportedly normal Hypertensive urgency; labile. Continue medications and add amlodipine. Chronic diastolic CHF; recent echo with LVEF 60%. no WMA. clinically compensated Hyperlipidemia; statin Diabetes, II. uncontrolled. as per IM PAFIB; IN SR. previously on Xarelto for stroke prophylaxis, but no longer takes. On ASA therapy Rapid COVID + ALIN JOINER APRN Aug 27, 2021 12:18 VICTOR MANUEL ARGUETA MD Aug 28, 2021 09:05
--- NOTE | 2021-08-27 12:58 | PDOC ---
[facility] PROGRESS NOTE Date of Service DOS: DATE: 08/27/21 TIME: 12:55 Chief Complaint Chief Complaint Weakness, chest pain, hyperglycemia, hypertensive urgency noncompliance and incidental finding of COVID testing positive on his rapid COVID. For now, we have him in respiratory isolation while we are awaiting the PCR test for his COVID. Sliding scale insulin. Serial enzymes, serial EKGs. We are going to resume his home meds, which should drop his pressure and hopefully that will control. If not, we will add an extra antihypertensives. Continue other home meds. DVT prophylaxis. Full Code. Trend labs. P.r.n. codeine cough syrup, empiric Z-SUMMER, empiric Medrol Dosepak, vitamins. Long-acting sliding scale Premeal insulin History of Present Illness History of Present Illness 08/27 Patient evaluated examined at bedside. Resting in bed not really complaining of anything to me however did not have much to say. Still quite hypertensive and hyperglycemic. Increase insulin today. Discussed with cardiology team. Leslye ramos current otherwise. Plan discussed with bedside RN. Vitals/I&O Vitals/I&O: Vital Signs Date Time Temp Pulse Resp B/P (MAP) Pulse Ox O2 Delivery O2 Flow Rate FiO2 08/27/21 11:47 70 196/92 08/27/21 10:59 97.9 18 99 Room Air 97.9 I & O 08/26/21 08/26/21 08/27/21 15:00 23:00 07:00 Intake Total 1000 ml 477 ml 200 ml Output Total 225 ml Balance 1000 ml 477 ml -25 ml Physical Exam General: Alert, Oriented X3, Cooperative Heart: Regular rate Lungs: Clear Abdomen: Normal bowel sounds, Soft, No tenderness Extremities: No edema, Normal pulses Skin: No significant lesion Labs Labs: Laboratory Tests Test 08/26/21 14:10 08/26/21 15:45 08/26/21 17:32 08/26/21 19:54 Troponin I High Sensitivity 13 ng/L (4-75) 13 ng/L (4-75) Glucose (Fingerstick) 283 mg/dL (70-99) 199 mg/dL (70-99) Test 08/27/21 07:43 08/27/21 10:52 Glucose (Fingerstick) 273 mg/dL (70-99) 332 mg/dL (70-99) Comment Review of Relevant I have reviewed the following items lainey (where applicable) has been applied. Medications: Current Medications Medications (Trade) Dose Ordered Sig/Norma Route PRN Reason Start Time Stop Time Status Last Admin Dose Admin Insulin Human Lispro (HumaLOG) 20 units 1X ONCE SQ 08/26/21 14:30 08/26/21 14:41 DC 08/26/21 14:34 Insulin Human Lispro (HumaLOG) 0-5 UNITS TIDWMEALS SQ 08/26/21 17:00 08/27/21 11:46 Aspirin (Rico Aspirin) 325 mg DAILYWBKFT PO 08/27/21 08:00 08/27/21 07:54 Atorvastatin Calcium (Lipitor) 40 mg DAILY PO 08/27/21 09:00 08/27/21 07:55 Chlorthalidone (Thalitone) 25 mg DAILY PO 08/27/21 09:00 08/27/21 07:52 Linagliptin (Tradjenta) 5 mg DAILY PO 08/27/21 09:00 08/27/21 07:53 Lisinopril (Prinivil) 40 mg BID PO 08/26/21 21:00 08/27/21 07:54 Metoprolol Tartrate (Lopressor) 25 mg BID PO 08/26/21 21:00 08/27/21 07:53 Pioglitazone HCl (Actos) 15 mg DAILY PO 08/27/21 09:00 08/27/21 07:53 Tamsulosin HCl (Flomax) 0.4 mg QHS PO 08/26/21 21:00 08/26/21 21:21 Metformin HCl (Glucophage) 1,000 mg BIDWMEALS PO 08/26/21 17:00 08/27/21 07:54 Azithromycin (Zithromax) 250 mg DAILY PO 08/26/21 15:00 08/27/21 07:55 Methylprednisolone (Medrol) 8 mg BID PO 08/26/21 15:00 08/26/21 21:01 DC 08/26/21 21:21 Methylprednisolone (Medrol) 4 mg BIDPCLD PO 08/26/21 16:30 08/26/21 17:31 DC 08/26/21 17:30 Methylprednisolone (Medrol) 4 mg TIDPC PO 08/27/21 08:30 08/27/21 17:31 08/27/21 11:46 Multivitamins (Thera M Plus) 1 tab DAILY PO 08/27/21 09:00 08/27/21 07:54 Hydralazine HCl (Apresoline Inj) 10 mg PRN Q4HRS PRN IVP ELEVATED BP, SEE COMMENTS 08/26/21 15:45 08/27/21 11:47 Hydralazine HCl (Apresoline) 100 mg BID PO 08/26/21 21:00 08/27/21 07:55 Justifications for Admission Other Justification JIMBO CAMPOS MD Aug 27, 2021 12:58
[2021-08-27] MEDS ORDERED: INSULIN LISPRO 300 UNITS/3 ML VIAL. SQ ONE (13:00)
[2021-08-27 15:00] VITALS: BP 122/60
[2021-08-27 19:54] VITALS: BP 188/88
[2021-08-27] MEDS ORDERED: methylPREDNISolone 4 MG TABLET. PO SCH (21:00)
[2021-08-27] MEDS ORDERED: INSULIN GLARGINE SYRINGE. SQ SCH (21:00)
[2021-08-27] MEDS: TAMSULOSIN 0.4 MG CAP.ER.24H. PO SCH (21:05)
[2021-08-27 22:15] VITALS: BP 179/85
[2021-08-28] VITALS (7 sets, daily range): BP systolic 72–200; BP diastolic 62–97
[2021-08-28] MEDS: metFORMIN 500 MG TABLET PO SCH ×2 (08:03→17:17)
[2021-08-28] MEDS: ASPIRIN 325 MG TABLET PO SCH (08:03)
[2021-08-28] MEDS: PIOGLITAZONE 15 MG TABLET. PO SCH (08:04)
[2021-08-28] MEDS: ATORVASTATIN CALCIUM 40 MG TABLET. PO SCH (08:04)
[2021-08-28] MEDS: MULTIVITAMIN with MINERAL TABLET. PO SCH (08:05)
[2021-08-28] MEDS: LINAGLIPTIN 5 MG TABLET PO SCH (08:05)
[2021-08-28] MEDS: methylPREDNISolone 4 MG TABLET. PO SCH ×4 (08:05→21:44)
[2021-08-28] MEDS: AZITHROMYCIN 250 MG TABLET. PO SCH (08:05)
[2021-08-28] MEDS: INSULIN LISPRO 300 UNITS/3 ML VIAL. SQ SCH ×6 (08:07→17:25)
[2021-08-28] MEDS: LISINOPRIL 20 MG TABLET PO SCH (08:16)
[2021-08-28] MEDS: METOPROLOL TART IMMED RELEASE 25 MG TABLET. PO SCH ×2 (08:17→21:43)
[2021-08-28] MEDS: CHLORTHALIDONE 25 MG TABLET. PO SCH (08:17)
[2021-08-28] MEDS: traMADol 50 MG TABLET PO PRN (08:18)
--- NOTE | 2021-08-28 11:16 | PDOC ---
CARDIO Progress Notes Date and Time Date of Service 08/28/21 Time of Evaluation 1115 Subjective Subjective: No Chest Pain, No shortness of breath, No Palpitations, Other (c/o dizziness upon standing ) Vitals Vitals Vital Signs Date Time Temp Pulse Resp B/P (MAP) Pulse Ox O2 Delivery O2 Flow Rate FiO2 08/28/21 08:48 98 Room Air 08/28/21 08:17 76 200/100 08/28/21 07:00 98.1 18 98.1 Weight Weight [ ] Input and Output Intake and Output Intake and Output 08/28/21 07:00 Intake Total 800 ml Output Total 1300 ml Balance -500 ml Intake Oral 800 ml Output Urine Total 1300 ml Laboratory Labs Laboratory Tests Test 08/27/21 16:35 08/27/21 19:51 08/27/21 21:25 08/28/21 07:57 Glucose (Fingerstick) 268 mg/dL (70-99) 166 mg/dL (70-99) 147 mg/dL (70-99) 281 mg/dL (70-99) Test 08/28/21 10:41 Glucose (Fingerstick) 276 mg/dL (70-99) Physical Exam HEENT: Neck Supple W Full Motion Chest: Symmetric LUNGS: Clear to Auscultation Heart: RRR Abdomen: Soft N/T Extremities: No Edema Neurology: alert, oriented, follow commands, other (flat affect ) Assessment Assessment 1. Chest pain; AMI ruled out. Most probably secondary to #2. Stress test 11/27 at [facility] that was reportedly normal 2. Hypertensive urgency; remains labile 3. Chronic diastolic CHF; recent echo with LVEF 60%. no WMA. clinically compensated 4. Hyperlipidemia; statin 5. Diabetes, II. uncontrolled. as per IM 6. PAFIB; presently SR. previously on Xarelto for stroke prophylaxis, but no longer takes. On ASA therapy. tele noted with very brief burst of PAFIB 7. Anxiety, depression, homelessness. resides at [facility] [place] 8. Rapid COVID + 9. Dizziness; occurs upon standpoint Recommendations ASA, statin Amlodipine increased Check orthos Continue BB for rate control Consider resumption of OAC for stroke prophylaxis. 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 Outpatient ischemic evaluation Supportive care Justicifation of Admission Dx: Justifications for Admission: Justification of Admission Dx: N/A ALIN JOINER APRN Aug 28, 2021 11:16
--- NOTE | 2021-08-28 15:28 | NUR ---
SS following for discharge planning. SS reviewed pt chart and discussed with pt RN. Pt is from home and is currently on room air. Cardiology following. No PT needs. Self pay. Med Assist following. SS will continue to follow for discharge planning.
--- NOTE | 2021-08-28 18:54 | PDOC ---
[facility] [facility] PROGRESS NOTE Date of Service DOS: DATE: 08/28/21 TIME: 18:52 Chief Complaint Chief Complaint Weakness, chest pain, hyperglycemia, hypertensive urgency noncompliance and incidental finding of COVID testing positive on his rapid COVID. For now, we have him in respiratory isolation while we are awaiting the PCR test for his COVID. Sliding scale insulin. Serial enzymes, serial EKGs. We are going to resume his home meds, which should drop his pressure and hopefully that will control. If not, we will add an extra antihypertensives. Continue other home meds. DVT prophylaxis. Full Code. Trend labs. P.r.n. codeine cough syrup, empiric Z-SUMMER, empiric Medrol Dosepak, vitamins. Long-acting sliding scale Premeal insulin History of Present Illness History of Present Illness 08/28 Patient evaluated examined at bedside. Up in chair reporting pain all over and dizziness still. Increased amlodipine today due to ongoing hypertension. Cardiology added lisinopril 40. Discussed with them and recommendations reviewe d. Close monitor blood pressure. 08/27 Patient evaluated examined at bedside. Resting in bed not really complaining of anything to me however did not have much to say. Still quite hypertensive and hyperglycemic. Increase insulin today. Discussed with cardiology team. Continue current otherwise. Plan discussed with bedside RN. Vitals/I&O Vitals/I&O: Vital Signs Date Time Temp Pulse Resp B/P (MAP) Pulse Ox O2 Delivery O2 Flow Rate FiO2 08/28/21 14:04 97.7 76 18 146/70 (95) 99 Room Air 97.7 I & O 08/27/21 08/27/21 08/28/21 15:00 23:00 07:00 Intake Total 300 ml 300 ml 200 ml Output Total 700 ml 400 ml 200 ml Balance -400 ml -100 ml 0 ml Physical Exam General: Alert, Oriented X3, Cooperative Heart: Regular rate Lungs: Clear Abdomen: Normal bowel sounds, Soft, No tenderness Extremities: No edema, Normal pulses Skin: No significant lesion Labs Labs: Laboratory Tests Test 08/27/21 19:51 08/27/21 21:25 08/28/21 07:57 08/28/21 10:41 Glucose (Fingerstick) 166 mg/dL (70-99) 147 mg/dL (70-99) 281 mg/dL (70-99) 276 mg/dL (70-99) Test 08/28/21 17:22 Glucose (Fingerstick) 221 mg/dL (70-99) Comment Review of Relevant I have reviewed the following items lainey (where applicable) has been applied. Medications: Current Medications Medications (Trade) Dose Ordered Sig/Norma Route PRN Reason Start Time Stop Time Status Last Admin Dose Admin Methylprednisolone (Medrol) 8 mg QHS PO 08/27/21 21:00 08/27/21 21:01 DC 08/27/21 21:05 Methylprednisolone (Medrol) 4 mg QIDAFTMEAL PO 08/28/21 09:00 08/28/21 21:01 08/28/21 17:18 Insulin Glargine (Lantus Syringe) 20 unit QHS SQ 08/27/21 21:00 08/27/21 21:09 Amlodipine Besylate (Norvasc) 10 mg DAILY PO 08/28/21 09:00 08/28/21 11:25 Justifications for Admission Other Justification JIMBO CAMPOS MD Aug 28, 2021 18:54
[2021-08-28] MEDS: LACTOBACILLUS RHAMNOSUS GG 1 CAPSULE. PO SCH (21:43)
[2021-08-28] MEDS: TAMSULOSIN 0.4 MG CAP.ER.24H. PO SCH (21:43)
[2021-08-28] MEDS: INSULIN GLARGINE SYRINGE. SQ SCH (21:53)
[2021-08-29 02:44] VITALS: BP 173/80
[2021-08-29 06:48] VITALS: BP 164/79
[2021-08-29] MEDS: AZITHROMYCIN 250 MG TABLET. PO SCH (08:07)
[2021-08-29] MEDS: ASPIRIN 325 MG TABLET PO SCH (08:07)
[2021-08-29] MEDS: LINAGLIPTIN 5 MG TABLET PO SCH (08:07)
[2021-08-29] MEDS: MULTIVITAMIN with MINERAL TABLET. PO SCH (08:08)
[2021-08-29] MEDS: metFORMIN 500 MG TABLET PO SCH ×2 (08:08→17:30)
[2021-08-29] MEDS: LACTOBACILLUS RHAMNOSUS GG 1 CAPSULE. PO SCH ×2 (08:08→21:44)
[2021-08-29] MEDS: METOPROLOL TART IMMED RELEASE 25 MG TABLET. PO SCH ×2 (08:08→21:44)
[2021-08-29] MEDS: ATORVASTATIN CALCIUM 40 MG TABLET. PO SCH (08:08)
[2021-08-29] MEDS: PIOGLITAZONE 15 MG TABLET. PO SCH (08:09)
[2021-08-29] MEDS: CHLORTHALIDONE 25 MG TABLET. PO SCH (08:09)
[2021-08-29] MEDS: LISINOPRIL 20 MG TABLET PO SCH (08:09)
[2021-08-29] MEDS: INSULIN LISPRO 300 UNITS/3 ML VIAL. SQ SCH ×6 (08:14→18:05)
[2021-08-29] MEDS ORDERED: RIVAROXABAN 2.5 MG TABLET PO SCH (09:00)
[2021-08-29] MEDS ORDERED: methylPREDNISolone 4 MG TABLET. PO SCH (09:00)
[2021-08-29 11:00] VITALS: BP 160/75
--- NOTE | 2021-08-29 12:29 | PDOC ---
CHIVO ANAND FLORAL ASSISTANT 08/29/21 1229: CARDIO Progress Notes Date and Time Date of Service 08/29/2021 Time of Evaluation 1220 Subjective Subjective: No Chest Pain, No shortness of breath, No Palpitations, Other (still coughing) Vitals Vitals Vital Signs Date Time Temp Pulse Resp B/P (MAP) Pulse Ox O2 Delivery O2 Flow Rate FiO2 08/29/21 11:00 97.4 74 18 160/75 (103) 97 Room Air 97.4 Weight Weight [ ] Input and Output Intake and Output Intake and Output 08/29/21 07:00 Intake Total 640 ml Output Total 2175 ml Balance -1535 ml Intake Oral 640 ml Output Urine Total 2175 ml Laboratory Labs Laboratory Tests Test 08/28/21 17:22 08/28/21 21:02 08/29/21 07:41 08/29/21 11:36 Glucose (Fingerstick) 221 mg/dL (70-99) 162 mg/dL (70-99) 227 mg/dL (70-99) 213 mg/dL (70-99) Physical Exam HEENT: Neck Supple W Full Motion Chest: Symmetric LUNGS: Clear to Auscultation Heart: RRR (SR) Abdomen: Soft N/T Extremities: No Edema Neurology: alert, oriented, follow commands, other (flat affect ) Assessment Assessment 1. Chest pain; AMI ruled out. Most probably secondary to #2. Stress test 11/27 at [facility] that was reportedly normal 2. Hypertensive urgency; remains labile 3. Chronic diastolic CHF; recent echo with LVEF 60%. no WMA. clinically compensated 4. Hyperlipidemia; statin 5. Diabetes, II. uncontrolled. as per IM 6. PAFIB; presently SR. previously on Xarelto for stroke prophylaxis, but no longer takes. On ASA therapy. tele noted with very brief burst of PAFIB 7. Anxiety, depression, homelessness. resides at [facility] 8. Rapid COVID + 9. Dizziness; occurs upon standing Recommendations On ASA, statin Continue BP regimen. BMP. Add Imdur. discussed with radiology no renal stenosis per CTA Continue BB for rate control. Check orthostatic readings Discussed with PCP unclear about 2.5 mg bid dosing. To check with his pharmacy otherwise he will need 20 mg daily dosing for storke prophylaxis and will not need ASA unless there is a clear indication for ASA use Outpatient ischemic evaluation Supportive care SS consult and will need clarification as far as insurance coverage as he will not be able to afford NOAC if he does not have coverage Justicifation of Admission Dx: Justifications for Admission: Justification of Admission Dx: N/A VICTOR MANUEL ARGUETA MD 08/29/21 1511: CARDIO Progress Notes Assessment Assessment Patient seen and evaluated. He is feeling mildly better. I agree with our nurse practitioners assessment and plan. Chest pain; AMI ruled out. Most probably secondary to #2. Stress test 11/27 at [facility] that was reportedly normal Hypertensive urgency; remains labile but improved. Imdur being added. Chronic diastolic CHF; recent echo with LVEF 60%. no WMA. clinically compensated Hyperlipidemia; statin Diabetes, II. uncontrolled. as per IM PAFIB; presently SR. previously on Xarelto for stroke prophylaxis, but no longer takes. On ASA therapy. tele noted with very brief burst of PAFIB Anxiety, depression, homelessness. resides at [facility] COVID + Dizziness CHIVO ANAND APRN Aug 29, 2021 12:29 VICTOR MANUEL ARGUETA MD Aug 29, 2021 15:11
[2021-08-29] MEDS: ISOSORBIDE MONONITRATE ER 30 MG TAB.ER.24H PO SCH (12:54)
[2021-08-29 13:47] LABS: CALCIUM 8.5 mg/dL (8.5-10.1); GFR 77.3
[2021-08-29 15:00] VITALS: BP 138/63
--- NOTE | 2021-08-29 15:35 | NUR ---
PATIENT ASSESSED FOR ELOPEMENT RISK PER ELOPEMENT POLICY AND PROCEDURE. PATIENT NOT DEEMED A RISK.
[2021-08-29] MEDS: RIVAROXABAN 10 MG TABLET. PO SCH (17:29)
[2021-08-29 18:43] VITALS: BP 143/65
[2021-08-29] MEDS: INSULIN GLARGINE SYRINGE. SQ SCH (21:00)
[2021-08-29] MEDS: TAMSULOSIN 0.4 MG CAP.ER.24H. PO SCH (21:43)
[2021-08-29] MEDS: guaiFENesin/CODEINE 100mg/10mg 5 ML LIQUID PO PRN (21:43)
[2021-08-29 23:21] VITALS: BP 140/60
[2021-08-30 03:00] VITALS: BP 135/65
[2021-08-30 07:00] VITALS: BP 174/72
[2021-08-30] MEDS ORDERED: methylPREDNISolone 4 MG TABLET. PO SCH (09:00)
[2021-08-30] MEDS: ISOSORBIDE MONONITRATE ER 30 MG TAB.ER.24H PO SCH (09:00)
[2021-08-30] MEDS: ASPIRIN 325 MG TABLET PO SCH (09:27)
[2021-08-30] MEDS: ATORVASTATIN CALCIUM 40 MG TABLET. PO SCH (09:28)
[2021-08-30] MEDS: MULTIVITAMIN with MINERAL TABLET. PO SCH (09:28)
[2021-08-30] MEDS: LINAGLIPTIN 5 MG TABLET PO SCH (09:28)
[2021-08-30] MEDS: METOPROLOL TART IMMED RELEASE 25 MG TABLET. PO SCH ×2 (09:28→21:30)
[2021-08-30] MEDS: metFORMIN 500 MG TABLET PO SCH ×2 (09:29→17:36)
[2021-08-30] MEDS: PIOGLITAZONE 15 MG TABLET. PO SCH (09:29)
[2021-08-30] MEDS: LISINOPRIL 20 MG TABLET PO SCH (09:29)
[2021-08-30] MEDS: LACTOBACILLUS RHAMNOSUS GG 1 CAPSULE. PO SCH ×2 (09:36→21:30)
[2021-08-30] MEDS: CHLORTHALIDONE 25 MG TABLET. PO SCH (09:38)
[2021-08-30] MEDS: INSULIN LISPRO 300 UNITS/3 ML VIAL. SQ SCH ×6 (10:11→17:00)
[2021-08-30 11:00] VITALS: BP 145/65
[2021-08-30 15:00] VITALS: BP 163/74
--- NOTE | 2021-08-30 16:05 | PDOC ---
PROGRESS NOTES Date of Service DATE: 08/30/21 TIME: 16:03 Subjective Subjective Patient seen and evaluated. Objective Objective Vital Signs Date Time Temp Pulse Resp B/P (MAP) Pulse Ox O2 Delivery O2 Flow Rate FiO2 08/30/21 11:00 98.0 72 18 145/65 (91) 99 Room Air 98.0 Intake and Output 08/30/21 07:00 Intake Total 1480 ml Output Total 1400 ml Balance 80 ml Intake Oral 1480 ml Output Urine Total 1400 ml # Voids 1 Physical Exam Physical Exam Visual examination. Assessment Assessment Chest pain; AMI ruled out. Most probably secondary to #2. Stress test 11/27 at [facility] that was reportedly normal Hypertensive urgency; remains labile but improved. Imdur added. Chronic diastolic CHF; recent echo with LVEF 60%. no WMA. clinically compensated Hyperlipidemia; statin Diabetes, II. uncontrolled. as per IM PAFIB; presently SR. previously on Xarelto for stroke prophylaxis, but no longer takes. On ASA therapy. tele noted with very brief burst of PAFIB Anxiety, depression, homelessness. resides at [facility] Rapid COVID + Dizziness. Mildly improved. Comment Review of Relevant I have reviewed the following items lainey (where applicable) has been applied. Labs Laboratory Tests Test 08/28/21 17:22 08/28/21 21:02 08/29/21 07:41 08/29/21 11:36 Glucose (Fingerstick) 221 mg/dL (70-99) 162 mg/dL (70-99) 227 mg/dL (70-99) 213 mg/dL (70-99) Test 08/29/21 13:20 08/29/21 17:33 08/29/21 20:33 08/30/21 08:40 Sodium Level 136 mmol/L (136-145) Potassium Level 4.0 mmol/L (3.5-5.1) Chloride Level 102 mmol/L (98-107) Carbon Dioxide Level 26 mmol/L (21-32) Anion Gap 8 (6-14) Blood Urea Nitrogen 31 mg/dL (8-26) Creatinine 1.0 mg/dL (0.7-1.3) Estimated GFR (Cockcroft-Gault) 77.3 Glucose Level 165 mg/dL (70-99) Calcium Level 8.5 mg/dL (8.5-10.1) Glucose (Fingerstick) 112 mg/dL (70-99) 74 mg/dL (70-99) 225 mg/dL (70-99) Test 08/30/21 12:02 Glucose (Fingerstick) 184 mg/dL (70-99) Laboratory Tests Test 08/29/21 17:33 08/29/21 20:33 08/30/21 08:40 08/30/21 12:02 Glucose (Fingerstick) 112 mg/dL (70-99) 74 mg/dL (70-99) 225 mg/dL (70-99) 184 mg/dL (70-99) Medications Current Medications Aspirin (Aspirin Chewable) 324 mg 1X ONCE PO Last administered on 08/26/21at 10:11; Start 08/26/21 at 10:00; Stop 08/26/21 at 10:01; Status DC Hydralazine HCl (Apresoline Inj) 10 mg 1X ONCE IVP Last administered on 08/26/21at 10:11; Start 08/26/21 at 10:00; Stop 08/26/21 at 10:01; Status DC Sodium Chloride 1,000 ml @ 999 mls/hr 1X ONCE IV Last administered on 08/26/21at 10:11; Start 08/26/21 at 10:00; Stop 08/26/21 at 11:00; Status DC Insulin Human Lispro (HumaLOG) 20 units 1X ONCE SQ Last administered on 08/26/21at 14:34; Start 08/26/21 at 14:30; Stop 08/26/21 at 14:41; Status DC Insulin Human Lispro (HumaLOG) 0-5 UNITS TIDWMEALS SQ Last administered on 08/30/21at 13:11; Start 08/26/21 at 17:00 Dextrose (Dextrose 50%-Water Syringe) 12.5 gm PRN Q15MIN PRN IV SEE COMMENTS; Start 08/26/21 at 14:15 Dextrose (Iv Dextrose 5%) 250 ml PRN Q15MIN PRN IV SEE COMMENTS; Start 08/26/21 at 14:15 Aspirin (Rico Aspirin) 325 mg DAILYWBKFT PO Last administered on 08/30/21at 09:27; Start 08/27/21 at 08:00 Atorvastatin Calcium (Lipitor) 40 mg DAILY PO Last administered on 08/30/21at 09:28; Start 08/27/21 at 09:00 Chlorthalidone (Thalitone) 25 mg DAILY PO Last administered on 08/30/21at 09:38; Start 08/27/21 at 09:00 Furosemide (Lasix) 40 mg PRN DAILY PRN PO SHORTNESS OF BREATH; Start 08/26/21 at 14:30 Linagliptin (Tradjenta) 5 mg DAILY PO Last administered on 08/30/21 09:28; Start 08/27/21 at 09:00 Lisinopril (Prinivil) 40 mg BID PO Last administered on 08/28/21at 08:16; Start 08/26/21 at 21:00; Stop 08/28/21 at 14:51; Status DC Metoprolol Tartrate (Lopressor) 25 mg BID PO Last administered on 08/30/21 09:28; Start 08/26/21 at 21:00 Pioglitazone HCl (Actos) 15 mg DAILY PO Last administered on 08/30/21 09:29; Start 08/27/21 at 09:00 Tamsulosin HCl (Flomax) 0.4 mg QHS PO Last administered on 08/29/21at 21:43; Start 08/26/21 at 21:00 Tramadol HCl (Ultram) 50 mg PRN Q6HRS PRN PO PAIN Last administered on 08/28/21 08:18; Start 08/26/21 at 14:30 Metformin HCl (Glucophage) 1,000 mg BIDWMEALS PO Last administered on 08/30/21 09:29; Start 08/26/21 at 17:00 Azithromycin (Zithromax) 250 mg DAILY PO Last administered on 08/29/21at 08:07; Start 08/26/21 at 15:00; Stop 08/29/21 at 09:01; Status DC Methylprednisolone (Medrol) 8 mg BID PO Last administered on 08/26/21at 21:21; Start 08/26/21 at 15:00; Stop 08/26/21 at 21:01; Status DC Methylprednisolone (Medrol) 4 mg BIDPCLD PO Last administered on 08/26/21at 17:30; Start 08/26/21 at 16:30; Stop 08/26/21 at 17:31; Status DC Methylprednisolone (Medrol) 4 mg TIDPC PO Last administered on 08/27/21at 16:49; Start 08/27/21 at 08:30; Stop 08/27/21 at 17:31; Status DC Methylprednisolone (Medrol) 8 mg QHS PO Last administered on 08/27/21at 21:05; Start 08/27/21 at 21:00; Stop 08/27/21 at 21:01; Status DC Methylprednisolone (Medrol) 4 mg QIDAFTMEAL PO Last administered on 08/28/21at 21:44; Start 08/28/21 at 09:00; Stop 08/28/21 at 21:01; Status DC Methylprednisolone (Medrol) 4 mg TID PO Last administered on 08/29/21at 08:07; Start 08/29/21 at 09:00; Stop 08/29/21 at 12:12; Status DC Methylprednisolone (Medrol) 4 mg BID PO ; Start 08/30/21 at 09:00; Stop 08/29/21 at 12:12; Status DC Methylprednisolone (Medrol) 4 mg DAILY PO ; Start 08/31/21 at 09:00; Stop 08/29/21 at 12:12; Status DC Guaifenesin/ Codeine Phosphate (Robitussin Ac) 5 ml PRN Q6HRS PRN PO COUGH Last administered on 08/29/21at 21:43; Start 08/26/21 at 14:30 Aspirin (Aspirin Chewable) 81 mg DAILYWBKFT PO ; Start 08/27/21 at 08:00; Status UNV Multivitamins (Thera M Plus) 1 tab DAILY PO Last administered on 08/30/21at 09:28; Start 08/27/21 at 09:00 Hydralazine HCl (Apresoline Inj) 10 mg PRN Q4HRS PRN IVP ELEVATED BP, SEE COMMENTS Last administered on 08/27/21at 11:47; Start 08/26/21 at 15:45 Hydralazine HCl (Apresoline) 100 mg BID PO Last administered on 08/30/21at 0 9:36; Start 08/26/21 at 21:00 Insulin Glargine (Lantus Syringe) 20 unit QHS SQ Last administered on 08/27/21at 21:09; Start 08/27/21 at 21:00; Stop 08/28/21 at 18:56; Status DC Insulin Human Lispro (HumaLOG) 10 units TIDWMEALS SQ Last administered on 08/09 08:14; Start 08/27/21 at 17:00; Stop 08/29/21 at 08:42; Status DC Insulin Human Lispro (HumaLOG) 20 units ONCE ONCE SQ Last administered on 08/27/21at 13:05; Start 08/27/21 at 13:00; Stop 08/27/21 at 13:01; Status DC Amlodipine Besylate (Norvasc) 5 mg DAILY PO Last administered on 08/28/21at 08:16; Start 08/27/21 at 15:15; Stop 08/28/21 at 08:56; Status DC Amlodipine Besylate (Norvasc) 10 mg DAILY PO Last administered on 08/30/21at 09:27; Start 08/28/21 at 09:00 Lactobacillus Rhamnosus (Culturelle) 1 cap BID PO Last administered on 08/30/21at 09:36; Start 08/28/21 at 21:00 Lisinopril (Prinivil) 40 mg DAILY PO Last administered on 08/30/21at 09:29; Start 08/29/21 at 09:00 Insulin Glargine (Lantus Syringe) 30 unit QHS SQ Last administered on 08/28/21at 21:53; Start 08/28/21 at 21:00 Insulin Human Lispro (HumaLOG) 15 units TIDWMEALS SQ Last administered on 08/30/21at 13:10; Start 08/29/21 at 12:00 Rivaroxaban (Xarelto) 2.5 mg BID PO ; Start 08/29/21 at 09:00; Stop 08/29/21 at 12:26; Status DC Isosorbide Mononitrate (Imdur) 30 mg DAILY PO Last administered on 08/30/21at 09:00; Start 08/29/21 at 13:00 Rivaroxaban (Xarelto) 20 mg DAILYWSUP PO Last administered on 08/29/21at 17:29; Start 08/29/21 at 17:00 Active Scripts Active Metformin Hcl 1,000 Mg Tablet 1,000 Mg PO BIDWMEALS 30 Days Lasix (Furosemide) 40 Mg Tablet 40 Mg PO DAILY PRN 30 Days Chlorthalidone (Chlorthalidone) 25 Mg Tablet 25 Mg PO DAILY 30 Days Lisinopril 40 Mg Tablet 1 Tab PO BID Atorvastatin Calcium 40 Mg Tablet 1 Tab PO DAILY Aspirin 325 Mg Tablet 325 Mg PO DAILYWBKFT 30 Days Tradjenta (Linagliptin) 5 Mg Tablet 5 Mg PO DAILY 30 Days Metoprolol Tartrate 25 Mg Tablet 25 Mg PO BID 30 Days Flomax (Tamsulosin Hcl) 0.4 Mg Cap.er.24h 0.4 Mg PO QHS 30 Days Tramadol Hcl 50 Mg Tablet 50 Mg PO Q6HRS PRN Reported Actos (Pioglitazone Hcl) 15 Mg Tablet 1 Tab PO DAILY 30 Days Vitals/I & O Vital Sign - Last 24 Hours 08/29/21 08/29/21 08/29/21 08/29/21 18:43 20:00 21:43 21:44 Temp 96.5 96.5 Pulse 75 75 75 Resp 18 B/P (MAP) 143/65 (91) 143/65 143/65 Pulse Ox 100 O2 Delivery Room Air Room Air 08/29/21 08/30/21 08/30/21 08/30/21 23:21 03:00 07:00 08:30 Temp 97.3 97.7 98.6 97.3 97.7 98.6 Pulse 74 79 73 Resp 20 18 18 B/P (MAP) 140/60 (86) 135/65 (88) 174/72 (106) Pulse Ox 93 96 96 O2 Delivery Room Air Room Air Room Air Room Air 08/30/21 08/30/21 08/30/21 08/30/21 09:00 09:27 09:28 09:29 Pulse 73 73 73 73 B/P (MAP) 174/72 174/72 174/72 174/72 08/30/21 08/30/21 09:36 11:00 Temp 98.0 98.0 Pulse 73 72 Resp 18 B/P (MAP) 174/72 145/65 (91) Pulse Ox 99 O2 Delivery Room Air Intake and Output 08/29/21 08/29/21 08/30/21 15:00 23:00 07:00 Intake Total 700 ml 540 ml 240 ml Output Total 800 ml 600 ml Balance -100 ml -60 ml 240 ml Justifications for Admission Other Justification VICTOR MANUEL ARGUETA MD Aug 30, 2021 16:05
[2021-08-30] MEDS: RIVAROXABAN 10 MG TABLET. PO SCH (17:36)
[2021-08-30] MEDS: hydrALAZINE 20 MG/ML VIAL. IVP PRN (17:44)
[2021-08-30 19:58] VITALS: BP 143/68
--- NOTE | 2021-08-30 20:39 | PDOC ---
[employer] PROGRESS NOTE Date of Service DOS: Late entry August 29 Chief Complaint Chief Complaint Weakness, chest pain, hyperglycemia, hypertensive urgency noncompliance and incidental finding of COVID testing positive on his rapid COVID. For now, we have him in respiratory isolation while we are awaiting the PCR test for his COVID. Sliding scale insulin. Serial enzymes, serial EKGs. We are going to resume his home meds, which should drop his pressure and hopefully that will control. If not, we will add an extra antihypertensives. Continue other home meds. DVT prophylaxis. Full Code. Trend labs. P.r.n. codeine cough syrup, empiric Z-SUMMER, empiric Medrol Dosepak, vitamins. Long-acting sliding scale Premeal insulin History of Present Illness History of Present Illness 08/29 Patient evaluated examined at bedside he was up in the chair watching a movie on his tablet. Pressure improved but says he does have ongoing dizziness. Said he was doing okay until steroids were started given stable respiratory status will stop steroids for now. Discussed with cardiology team adding on nitrates today as well. Discussed with bedside RN. 08/28 Patient evaluated examined at bedside. Up in chair reporting pain all over and dizziness still. Increased amlodipine today due to ongoing hypertension. Cardiology added lisinopril 40. Discussed with them and recommendations reviewed. Close monitor blood pressure. 08/27 Patient evaluated examined at bedside. Resting in bed not really complaining of anything to me however did not have much to say. Still quite hypertensive and hyperglycemic. Increase insulin today. Discussed with cardiology team. Continue current otherwise. Plan discussed with bedside RN. Vitals/I&O Vitals/I&O: Vital Signs Date Time Temp Pulse Resp B/P (MAP) Pulse Ox O2 Delivery O2 Flow Rate FiO2 08/30/21 19:58 98.0 96 18 143/68 (93) 99 Room Air 98.0 I & O 08/29/21 08/29/21 08/30/21 15:00 23:00 07:00 Intake Total 700 ml 540 ml 240 ml Output Total 800 ml 600 ml Balance -100 ml -60 ml 240 ml Physical Exam General: Alert, Oriented X3, Cooperative Heart: Regular rate Lungs: Clear Abdomen: Normal bowel sounds, Soft, No tenderness Extremities: No edema, Normal pulses Skin: No significant lesion Labs Labs: Laboratory Tests Test 4/23/22 08:40 08/30/21 12:02 08/30/21 17:05 Glucose (Fingerstick) 225 mg/dL (70-99) 184 mg/dL (70-99) 89 mg/dL (70-99) Comment Review of Relevant I have reviewed the following items lainey (where applicable) has been applied. Justifications for Admission Other Justification JIMBO CAMPOS MD Aug 30, 2021 20:38
--- NOTE | 2021-08-30 20:40 | PDOC ---
[employer] [facility] PROGRESS NOTE Date of Service DOS: DATE: 08/30/21 TIME: 20:39 Chief Complaint Chief Complaint Weakness, chest pain, hyperglycemia, hypertensive urgency noncompliance and incidental finding of COVID testing positive on his rapid COVID. For now, we have him in respiratory isolation while we are awaiting the PCR test for his COVID. Sliding scale insulin. Serial enzymes, serial EKGs. We are going to resume his home meds, which should drop his pressure and hopefully that will control. If not, we will add an extra antihypertensives. Continue other home meds. DVT prophylaxis. Full Code. Trend labs. P.r.n. codeine cough syrup, empiric Z-SUMMER, empiric Medrol Dosepak, vitamins. Long-acting sliding scale Premeal insulin History of Present Illness History of Present Illness 08/30 Patient evaluated examined at bedside. Said dizziness a little bit improved but definitely still present. Xarelto resumed yesterday but at the same time given patient's insurance status likely will be unable to get as an outpatient. We will see if any options. Otherwise continue current and watch through the weekend. 08/29 Patient evaluated examined at bedside he was up in the chair watching a movie on his tablet. Pressure improved but says he does have ongoing dizziness. Said he was doing okay until steroids were started given stable respiratory status will stop steroids for now. Discussed with cardiology team adding on nitrates today as well. Discussed with bedside RN. 08/28 Patient evaluated examined at bedside. Up in chair reporting pain all over and dizziness still. Increased amlodipine today due to ongoing hypertension. Cardiology added lisinopril 40. Discussed with them and recommendations reviewed. Close monitor blood pressure. 08/27 Patient evaluated examined at bedside. Resting in bed not really complaining of anything to me however did not have much to say. Still quite hypertensive and hyperglycemic. Increase insulin today. Discussed with cardiology team. Continue current otherwise. Plan discussed with bedside RN. Vitals/I&O Vitals/I&O: Vital Signs Date Time Temp Pulse Resp B/P (MAP) Pulse Ox O2 Delivery O2 Flow Rate FiO2 08/30/21 19:58 98.0 96 18 143/68 (93) 99 Room Air 98.0 I & O 08/29/21 08/29/21 08/30/21 15:00 23:00 07:00 Intake Total 700 ml 540 ml 240 ml Output Total 800 ml 600 ml Balance -100 ml -60 ml 240 ml Physical Exam General: Alert, Oriented X3, Cooperative Heart: Regular rate Lungs: Clear Abdomen: Normal bowel sounds, Soft, No tenderness Extremities: No edema, Normal pulses Skin: No significant lesion Labs Labs: Laboratory Tests Test 08/30/21 08:40 08/30/21 12:02 08/30/21 17:05 Glucose (Fingerstick) 225 mg/dL (70-99) 184 mg/dL (70-99) 89 mg/dL (70-99) Comment Review of Relevant I have reviewed the following items lainey (where applicable) has been applied. Justifications for Admission Other Justification JIMBO CAMPOS MD Aug 30, 2021 20:40
[2021-08-30] MEDS: TAMSULOSIN 0.4 MG CAP.ER.24H. PO SCH (21:31)
[2021-08-30] MEDS: guaiFENesin/CODEINE 100mg/10mg 5 ML LIQUID PO PRN (21:31)
[2021-08-30] MEDS: INSULIN GLARGINE SYRINGE. SQ SCH (21:32)
[2021-08-30 22:45] VITALS: BP 141/63
[2021-08-31 02:55] VITALS: BP 183/85
[2021-08-31 04:28] LABS: BASO % 1 % (0-3); EOS # 0.1 x10^3/uL (0.0-0.7); EOS % 2 % (0-3); HEMATOCRIT 27.4 % (39.0-53.0); HEMOGLOBIN 10.1 g/dL (13.0-17.5); LYMPH % 15 % (24-48); MEAN CORPUSCULAR HEMOGLOBIN 33 pg (25-35); MEAN CORPUSCULAR HGB CONC 37 g/dL (31-37); MEAN CORPUSCULAR VOLUME 88 fL (79-100); MONO # 0.6 x10^3/uL (0.0-1.1); MONO % 10 % (0-9); NEUT # 4.9 x10^3/uL (1.8-7.7); NEUT % 74 % (31-73); PLATELET COUNT 230 x10^3/uL (140-400); WHITE BLOOD COUNT 6.6 x10^3/uL (4.0-11.0)
[2021-08-31 04:50] LABS: CALCIUM 8.5 mg/dL (8.5-10.1); CREATININE 1.1 mg/dL (0.7-1.3); GFR 69.2; POTASSIUM 4.6 mmol/L (3.5-5.1); TOTAL BILIRUBIN 0.7 mg/dL (0.2-1.0); TOTAL PROTEIN 6.1 g/dL (6.4-8.2)
[2021-08-31 07:00] VITALS: BP 166/76
[2021-08-31] MEDS: INSULIN LISPRO 300 UNITS/3 ML VIAL. SQ SCH ×6 (08:00→16:51)
[2021-08-31] MEDS ORDERED: methylPREDNISolone 4 MG TABLET. PO SCH (09:00)
[2021-08-31] MEDS: LINAGLIPTIN 5 MG TABLET PO SCH (09:00)
[2021-08-31] MEDS: ASPIRIN 325 MG TABLET PO SCH (09:02)
[2021-08-31] MEDS: ATORVASTATIN CALCIUM 40 MG TABLET. PO SCH (09:02)
[2021-08-31] MEDS: metFORMIN 500 MG TABLET PO SCH ×2 (09:02→16:52)
[2021-08-31] MEDS: CHLORTHALIDONE 25 MG TABLET. PO SCH (09:02)
[2021-08-31] MEDS: MULTIVITAMIN with MINERAL TABLET. PO SCH (09:02)
[2021-08-31] MEDS: LACTOBACILLUS RHAMNOSUS GG 1 CAPSULE. PO SCH ×2 (09:03→22:25)
[2021-08-31] MEDS: LISINOPRIL 20 MG TABLET PO SCH (09:03)
[2021-08-31] MEDS: METOPROLOL TART IMMED RELEASE 25 MG TABLET. PO SCH ×2 (09:03→22:24)
[2021-08-31] MEDS: ISOSORBIDE MONONITRATE ER 30 MG TAB.ER.24H PO SCH (09:04)
[2021-08-31] MEDS: PIOGLITAZONE 15 MG TABLET. PO SCH (09:04)
[2021-08-31 11:00] VITALS: BP 144/66
--- NOTE | 2021-08-31 13:23 | PDOC ---
[employer] [facility] PROGRESS NOTE Date of Service DOS: DATE: 08/31/21 TIME: 13:22 Chief Complaint Chief Complaint Weakness, chest pain, hyperglycemia, hypertensive urgency noncompliance and incidental finding of COVID testing positive on his rapid COVID. For now, we have him in respiratory isolation while we are awaiting the PCR test for his COVID. Sliding scale insulin. Serial enzymes, serial EKGs. We are going to resume his home meds, which should drop his pressure and hopefully that will control. If not, we will add an extra antihypertensives. Continue other home meds. DVT prophylaxis. Full Code. Trend labs. P.r.n. codeine cough syrup, empiric Z-SUMMER, empiric Medrol Dosepak, vitamins. Long-acting sliding scale Premeal insulin History of Present Illness History of Present Illness 08/31 Patient evaluated examined at bedside. Dizziness is stable right now. Continue to observe today. Continue nitrates. Possible discharge early this coming week. Consult recommendations reviewed 08/30 Patient evaluated examined at bedside. Said dizziness a little bit improved but definitely still present. Xarelto resumed yesterday but at the same time given patient's insurance status likely will be unable to get as an outpatient. We will see if any options. Otherwise continue current and watch through the weekend. 08/29 Patient evaluated examined at bedside he was up in the chair watching a movie on his tablet. Pressure improved but says he does have ongoing dizziness. Said he was doing okay until steroids were started given stable respiratory status will stop steroids for now. Discussed with cardiology team adding on nitrates today as well. Discussed with bedside RN. 08/28 Patient evaluated examined at bedside. Up in chair reporting pain all over and dizziness still. Increased amlodipine today due to ongoing hypertension. Cardiology added lisinopril 40. Discussed with them and recommendations review ed. Close monitor blood pressure. 08/27 Patient evaluated examined at bedside. Resting in bed not really complaining of anything to me however did not have much to say. Still quite hypertensive and hyperglycemic. Increase insulin today. Discussed with cardiology team. Continue current otherwise. Plan discussed with bedside RN. Vitals/I&O Vitals/I&O: Vital Signs Date Time Temp Pulse Resp B/P (MAP) Pulse Ox O2 Delivery O2 Flow Rate FiO2 08/31/21 11:00 98.1 80 19 144/66 (92) 98 Room Air 98.1 I & O 08/30/21 08/30/21 08/31/21 15:00 23:00 07:00 Intake Total 360 ml 520 ml 0 ml Output Total 500 ml 600 ml Balance 360 ml 20 ml -600 ml Physical Exam General: Alert, Oriented X3, Cooperative Heart: Regular rate Lungs: Clear Abdomen: Normal bowel sounds, Soft, No tenderness Extremities: No edema, Normal pulses Skin: No significant lesion Labs Labs: Laboratory Tests Test 08/30/21 17:05 08/30/21 20:50 08/31/21 04:00 08/31/21 07:51 Glucose (Fingerstick) 89 mg/dL (70-99) 155 mg/dL (70-99) 208 mg/dL (70-99) White Blood Count 6.6 x10^3/uL (4.0-11.0) Red Blood Count 3.10 x10^6/uL (4.30-5.70) Hemoglobin 10.1 g/dL (13.0-17.5) Hematocrit 27.4 % (39.0-53.0) Mean Corpuscular Volume 88 fL (79-100) Mean Corpuscular Hemoglobin 33 pg (25-35) Mean Corpuscular Hemoglobin Concent 37 g/dL (31-37) Red Cell Distribution Width 14.0 % (11.5-14.5) Platelet Count 230 x10^3/uL (140-400) Neutrophils (%) (Auto) 74 % (31-73) Lymphocytes (%) (Auto) 15 % (24-48) Monocytes (%) (Auto) 10 % (0-9) Eosinophils (%) (Auto) 2 % (0-3) Basophils (%) (Auto) 1 % (0-3) Neutrophils # (Auto) 4.9 x10^3/uL (1.8-7.7) Lymphocytes # (Auto) 1.0 x10^3/uL (1.0-4.8) Monocytes # (Auto) 0.6 x10^3/uL (0.0-1.1) Eosinophils # (Auto) 0.1 x10^3/uL (0.0-0.7) Basophils # (Auto) 0.0 x10^3/uL (0.0-0.2) Sodium Level 136 mmol/L (136-145) Potassium Level 4.6 mmol/L (3.5-5.1) Chloride Level 102 mmol/L (98-107) Carbon Dioxide Level 27 mmol/L (21-32) Anion Gap 7 (6-14) Blood Urea Nitrogen 39 mg/dL (8-26) Creatinine 1.1 mg/dL (0.7-1.3) Estimated GFR (Cockcroft-Gault) 69.2 BUN/Creatinine Ratio 35 (6-20) Glucose Level 180 mg/dL (70-99) Calcium Level 8.5 mg/dL (8.5-10.1) Total Bilirubin 0.7 mg/dL (0.2-1.0) Aspartate Amino Transf (AST/SGOT) 11 U/L (15-37) Alanine Aminotransferase (ALT/SGPT) 13 U/L (16-63) Alkaline Phosphatase 76 U/L (46-116) Total Protein 6.1 g/dL (6.4-8.2) Albumin 3.0 g/dL (3.4-5.0) Albumin/Globulin Ratio 1.0 (1.0-1.7) Test 08/31/21 11:02 Glucose (Fingerstick) 189 mg/dL (70-99) Comment Review of Relevant I have reviewed the following items lainey (where applicable) has been applied. Justifications for Admission Other Justification JIMBO CAMPOS MD Aug 31, 2021 13:23
--- NOTE | 2021-08-31 14:30 | PDOC ---
PROGRESS NOTES Date of Service DATE: 08/31/21 TIME: 14:28 Subjective Subjective Patient seen and evaluated. Objective Objective Vital Signs Date Time Temp Pulse Resp B/P (MAP) Pulse Ox O2 Delivery O2 Flow Rate FiO2 08/31/21 11:00 98.1 80 19 144/66 (92) 98 Room Air 98.1 Intake and Output 08/31/21 07:00 Intake Total 880 ml Output Total 1100 ml Balance -220 ml Intake Oral 880 ml Output Urine Total 1100 ml # Voids 2 # Bowel Movements 1 Physical Exam Physical Exam Visual examination. Assessment Assessment Chest pain; pain resolved. AMI ruled out. Most probably secondary to #2. Stress test 11/27 at [facility] that was reportedly normal Hypertensive urgency; remains labile but improved. Imdur added. Chronic diastolic CHF; recent echo with LVEF 60%. no WMA. clinically compensated Hyperlipidemia; statin Diabetes, II. as per IM PAFIB; presently SR. previously on Xarelto for stroke prophylaxis, but no longer takes. On ASA therapy. Sinus rhythm overnight. Anxiety, depression, homelessness. resides at [facility] Rapid COVID + Dizziness. Continues to improve. The patient reports feeling better. Comment Review of Relevant I have reviewed the following items lainey (where applicable) has been applied. Labs Laboratory Tests Test 08/29/21 17:33 08/29/21 20:33 08/30/21 08:40 08/30/21 12:02 Glucose (Fingerstick) 112 mg/dL (70-99) 74 mg/dL (70-99) 225 mg/dL (70-99) 184 mg/dL (70-99) Test 08/30/21 17:05 08/30/21 20:50 08/31/21 04:00 08/31/21 07:51 Glucose (Fingerstick) 89 mg/dL (70-99) 155 mg/dL (70-99) 208 mg/dL (70-99) White Blood Count 6.6 x10^3/uL (4.0-11.0) Red Blood Count 3.10 x10^6/uL (4.30-5.70) Hemoglobin 10.1 g/dL (13.0-17.5) Hematocrit 27.4 % (39.0-53.0) Mean Corpuscular Volume 88 fL (79-100) Mean Corpuscular Hemoglobin 33 pg (25-35) Mean Corpuscular Hemoglobin Concent 37 g/dL (31-37) Red Cell Distribution Width 14.0 % (11.5-14.5) Platelet Count 230 x10^3/uL (140-400) Neutrophils (%) (Auto) 74 % (31-73) Lymphocytes (%) (Auto) 15 % (24-48) Monocytes (%) (Auto) 10 % (0-9) Eosinophils (%) (Auto) 2 % (0-3) Basophils (%) (Auto) 1 % (0-3) Neutrophils # (Auto) 4.9 x10^3/uL (1.8-7.7) Lymphocytes # (Auto) 1.0 x10^3/uL (1.0-4.8) Monocytes # (Auto) 0.6 x10^3/uL (0.0-1.1) Eosinophils # (Auto) 0.1 x10^3/uL (0.0-0.7) Basophils # (Auto) 0.0 x10^3/uL (0.0-0.2) Sodium Level 136 mmol/L (136-145) Potassium Level 4.6 mmol/L (3.5-5.1) Chloride Level 102 mmol/L (98-107) Carbon Dioxide Level 27 mmol/L (21-32) Anion Gap 7 (6-14) Blood Urea Nitrogen 39 mg/dL (8-26) Creatinine 1.1 mg/dL (0.7-1.3) Estimated GFR (Cockcroft-Gault) 69.2 BUN/Creatinine Ratio 35 (6-20) Glucose Level 180 mg/dL (70-99) Calcium Level 8.5 mg/dL (8.5-10.1) Total Bilirubin 0.7 mg/dL (0.2-1.0) Aspartate Amino Transf (AST/SGOT) 11 U/L (15-37) Alanine Aminotransferase (ALT/SGPT) 13 U/L (16-63) Alkaline Phosphatase 76 U/L (46-116) Total Protein 6.1 g/dL (6.4-8.2) Albumin 3.0 g/dL (3.4-5.0) Albumin/Globulin Ratio 1.0 (1.0-1.7) Test 08/31/21 11:02 Glucose (Fingerstick) 189 mg/dL (70-99) Laboratory Tests Test 08/30/21 17:05 08/30/21 20:50 08/31/21 04:00 08/31/21 07:51 Glucose (Fingerstick) 89 mg/dL (70-99) 155 mg/dL (70-99) 208 mg/dL (70-99) White Blood Count 6.6 x10^3/uL (4.0-11.0) Red Blood Count 3.10 x10^6/uL (4.30-5.70) Hemoglobin 10.1 g/dL (13.0-17.5) Hematocrit 27.4 % (39.0-53.0) Mean Corpuscular Volume 88 fL (79-100) Mean Corpuscular Hemoglobin 33 pg (25-35) Mean Corpuscular Hemoglobin Concent 37 g/dL (31-37) Red Cell Distribution Width 14.0 % (11.5-14.5) Platelet Count 230 x10^3/uL (140-400) Neutrophils (%) (Auto) 74 % (31-73) Lymphocytes (%) (Auto) 15 % (24-48) Monocytes (%) (Auto) 10 % (0-9) Eosinophils (%) (Auto) 2 % (0-3) Basophils (%) (Auto) 1 % (0-3) Neutrophils # (Auto) 4.9 x10^3/uL (1.8-7.7) Lymphocytes # (Auto) 1.0 x10^3/uL (1.0-4.8) Monocytes # (Auto) 0.6 x10^3/uL (0.0-1.1) Eosinophils # (Auto) 0.1 x10^3/uL (0.0-0.7) Basophils # (Auto) 0.0 x10^3/uL (0.0-0.2) Sodium Level 136 mmol/L (136-145) Potassium Level 4.6 mmol/L (3.5-5.1) Chloride Level 102 mmol/L (98-107) Carbon Dioxide Level 27 mmol/L (21-32) Anion Gap 7 (6-14) Blood Urea Nitrogen 39 mg/dL (8-26) Creatinine 1.1 mg/dL (0.7-1.3) Estimated GFR (Cockcroft-Gault) 69.2 BUN/Creatinine Ratio 35 (6-20) Glucose Level 180 mg/dL (70-99) Calcium Level 8.5 mg/dL (8.5-10.1) Total Bilirubin 0.7 mg/dL (0.2-1.0) Aspartate Amino Transf (AST/SGOT) 11 U/L (15-37) Alanine Aminotransferase (ALT/SGPT) 13 U/L (16-63) Alkaline Phosphatase 76 U/L (46-116) Total Protein 6.1 g/dL (6.4-8.2) Albumin 3.0 g/dL (3.4-5.0) Albumin/Globulin Ratio 1.0 (1.0-1.7) Test 08/31/21 11:02 Glucose (Fingerstick) 189 mg/dL (70-99) Medications Current Medications Aspirin (Aspirin Chewable) 324 mg 1X ONCE PO Last administered on 08/26/21at 10:11; Start 08/26/21 at 10:00; Stop 08/26/21 at 10:01; Status DC Hydralazine HCl (Apresoline Inj) 10 mg 1X ONCE IVP Last administered on 08/26/21at 10:11; Start 08/26/21 at 10:00; Stop 08/26/21 at 10:01; Status DC Sodium Chloride 1,000 ml @ 999 mls/hr 1X ONCE IV Last administered on 08/26/21at 10:11; Start 08/26/21 at 10:00; Stop 08/26/21 at 11:00; Status DC Insulin Human Lispro (HumaLOG) 20 units 1X ONCE SQ Last administered on 08/26/21at 14:34; Start 08/26/21 at 14:30; Stop 08/26/21 at 14:41; Status DC Insulin Human Lispro (HumaLOG) 0-5 UNITS TIDWMEALS SQ Last administered on 08/31/21at 11:36; Start 08/26/21 at 17:00 Dextrose (Dextrose 50%-Water Syringe) 12.5 gm PRN Q15MIN PRN IV SEE COMMENTS; Start 08/26/21 at 14:15 Dextrose (Iv Dextrose 5%) 250 ml PRN Q15MIN PRN IV SEE COMMENTS; Start 08/26/21 at 14:15 Aspirin (Rico Aspirin) 325 mg DAILYWBKFT PO Last administered on 08/31/21at 09:02; Start 08/27/21 at 08:00 Atorvastatin Calcium (Lipitor) 40 mg DAILY PO Last administered on 08/31/21 09:02; Start 08/27/21 at 09:00 Chlorthalidone (Thalitone) 25 mg DAILY PO Last administered on 08/31/21 09:02; Start 08/27/21 at 09:00 Furosemide (Lasix) 40 mg PRN DAILY PRN PO SHORTNESS OF BREATH; Start 08/26/21 at 14:30 Linagliptin (Tradjenta) 5 mg DAILY PO Last administered on 08/31/21 09:00; Start 08/27/21 at 09:00 Lisinopril (Prinivil) 40 mg BID PO Last administered on 08/28/21at 08:16; Start 08/26/21 at 21:00; Stop 08/28/21 at 14:51; Status DC Metoprolol Tartrate (Lopressor) 25 mg BID PO Last administered on 08/31/21at 09:03; Start 08/26/21 at 21:00 Pioglitazone HCl (Actos) 15 mg DAILY PO Last administered on 08/31/21 09:04; Start 08/27/21 at 09:00 Tamsulosin HCl (Flomax) 0.4 mg QHS PO Last administered on 08/30/21at 21:31; Start 08/26/21 at 21:00 Tramadol HCl (Ultram) 50 mg PRN Q6HRS PRN PO PAIN Last administered on 08/28/21at 08:18; Start 08/26/21 at 14:30 Metformin HCl (Glucophage) 1,000 mg BIDWMEALS PO Last administered on 08/31/21 09:02; Start 08/26/21 at 17:00 Azithromycin (Zithromax) 250 mg DAILY PO Last administered on 08/29/21 08:07; Start 08/26/21 at 15:00; Stop 08/29/21 at 09:01; Status DC Methylprednisolone (Medrol) 8 mg BID PO Last administered on 08/26/21at 21:21; Start 08/26/21 at 15:00; Stop 08/26/21 at 21:01; Status DC Methylprednisolone (Medrol) 4 mg BIDPCLD PO Last administered on 08/26/21at 17:30; Start 08/26/21 at 16:30; Stop 08/26/21 at 17:31; Status DC Methylprednisolone (Medrol) 4 mg TIDPC PO Last administered on 08/27/21at 16:49; Start 08/27/21 at 08:30; Stop 08/27/21 at 17:31; Status DC Methylprednisolone (Medrol) 8 mg QHS PO Last administered on 08/27/21at 21:05; Start 08/27/21 at 21:00; Stop 08/27/21 at 21:01; Status DC Methylprednisolone (Medrol) 4 mg QIDAFTMEAL PO Last administered on 08/28/21at 21:44; Start 08/28/21 at 09:00; Stop 08/28/21 at 21:01; Status DC Methylprednisolone (Medrol) 4 mg TID PO Last administered on 08/29/21at 08:07; Start 08/29/21 at 09:00; Stop 08/29/21 at 12:12; Status DC Methylprednisolone (Medrol) 4 mg BID PO ; Start 08/30/21 at 09:00; Stop 08/29/21 at 12:12; Status DC Methylprednisolone (Medrol) 4 mg DAILY PO ; Start 08/31/21 at 09:00; Stop 08/29/21 at 12:12; Status DC Guaifenesin/ Codeine Phosphate (Robitussin Ac) 5 ml PRN Q6HRS PRN PO COUGH Last administered on 08/30/21at 21:31; Start 08/26/21 at 14:30 Aspirin (Aspirin Chewable) 81 mg DAILYWBKFT PO ; Start 08/27/21 at 08:00; Status UNV Multivitamins (Thera M Plus) 1 tab DAILY PO Last administered on 08/31/21at 09: 02; Start 08/27/21 at 09:00 Hydralazine HCl (Apresoline Inj) 10 mg PRN Q4HRS PRN IVP ELEVATED BP, SEE COMMENTS Last administered on 08/30/21at 17:44; Start 08/26/21 at 15:45 Hydralazine HCl (Apresoline) 100 mg BID PO Last administered on 08/31/21at 09:04; Start 08/26/21 at 21:00 Insulin Glargine (Lantus Syringe) 20 unit QHS SQ Last administered on 08/27/21at 21:09; Start 08/27/21 at 21:00; Stop 08/28/21 at 18:56; Status DC Insulin Human Lispro (HumaLOG) 10 units TIDWMEALS SQ Last administered on 08/29/21at 08:14; Start 08/27/21 at 17:00; Stop 08/29/21 at 08:42; Status DC Insulin Human Lispro (HumaLOG) 20 units ONCE ONCE SQ Last administered on 08/27/21at 13:05; Start 08/27/21 at 13:00; Stop 08/27/21 at 13:01; Status DC Amlodipine Besylate (Norvasc) 5 mg DAILY PO Last administered on 08/28/21at 08:16; Start 08/27/21 at 15:15; Stop 08/28/21 at 08:56; Status DC Amlodipine Besylate (Norvasc) 10 mg DAILY PO Last administered on 08/31/21at 09:03; Start 08/28/21 at 09:00 Lactobacillus Rhamnosus (Culturelle) 1 cap BID PO Last administered on 08/31/21at 09:03; Start 08/28/21 at 21:00 Lisinopril (Prinivil) 40 mg DAILY PO Last administered on 08/31/21at 09:03; Start 08/29/21 at 09:00 Insulin Glargine (Lantus Syringe) 30 unit QHS SQ Last administered on 08/30/21at 21:32; Start 08/28/21 at 21:00 Insulin Human Lispro (HumaLOG) 15 units TIDWMEALS SQ Last administered on 08/31/21at 11:37; Start 08/29/21 at 12:00 Rivaroxaban (Xarelto) 2.5 mg BID PO ; Start 08/29/21 at 09:00; Stop 08/29/21 at 12:26; Status DC Isosorbide Mononitrate (Imdur) 30 mg DAILY PO Last administered on 08/31/21at 09:04; Start 08/29/21 at 13:00 Rivaroxaban (Xarelto) 20 mg DAILYWSUP PO Last administered on 08/30/21at 17:36; Start 08/29/21 at 17:00 Active Scripts Active Metformin Hcl 1,000 Mg Tablet 1,000 Mg PO BIDWMEALS 30 Days Lasix (Furosemide) 40 Mg Tablet 40 Mg PO DAILY PRN 30 Days Chlorthalidone (Chlorthalidone) 25 Mg Tablet 25 Mg PO DAILY 30 Days Lisinopril 40 Mg Tablet 1 Tab PO BID Atorvastatin Calcium 40 Mg Tablet 1 Tab PO DAILY Aspirin 325 Mg Tablet 325 Mg PO DAILYWBKFT 30 Days Tradjenta (Linagliptin) 5 Mg Tablet 5 Mg PO DAILY 30 Days Metoprolol Tartrate 25 Mg Tablet 25 Mg PO BID 30 Days Flomax (Tamsulosin Hcl) 0.4 Mg Cap.er.24h 0.4 Mg PO QHS 30 Days Tramadol Hcl 50 Mg Tablet 50 Mg PO Q6HRS PRN Reported Actos (Pioglitazone Hcl) 15 Mg Tablet 1 Tab PO DAILY 30 Days Vitals/I & O Vital Sign - Last 24 Hours 08/30/21 08/30/21 08/30/21 08/30/21 15:00 17:44 19:58 20:00 Temp 97.2 98.0 97.2 98.0 Pulse 76 76 96 Resp 18 18 B/P (MAP) 163/74 (103) 163/74 143/68 (93) Pulse Ox 100 99 O2 Delivery Room Air Room Air Room Air 08/30/21 08/30/21 08/30/21 08/31/21 21:30 21:30 22:45 02:55 Temp 98.2 98.2 98.2 98.2 Pulse 96 96 92 94 Resp 16 16 B/P (MAP) 143/68 143/68 141/63 (89) 183/85 (117) Pulse Ox 98 99 O2 Delivery Room Air Room Air 08/31/21 08/31/21 08/31/21 08/31/21 07:00 08:00 09:03 09:03 Temp 98.2 98.2 Pulse 82 82 82 Resp 18 B/P (MAP) 166/76 (106) 166/76 166/76 Pulse Ox 98 O2 Delivery Room Air Room Air 08/31/21 08/31/21 08/31/21 08/31/21 09:03 09:04 09:04 11:00 Temp 98.1 98.1 Pulse 82 82 82 80 Resp 19 B/P (MAP) 166/76 166/76 166/76 144/66 (92) Pulse Ox 98 O2 Delivery Room Air Intake and Output 08/30/21 08/30/21 08/31/21 15:00 23:00 07:00 Intake Total 360 ml 520 ml 0 ml Output Total 500 ml 600 ml Balance 360 ml 20 ml -600 ml Justifications for Admission Other Justification VICTOR MANUEL ARGUETA MD Aug 31, 2021 14:30
[2021-08-31 15:00] VITALS: BP 121/63
[2021-08-31] MEDS: RIVAROXABAN 10 MG TABLET. PO SCH (16:52)
[2021-08-31 19:50] VITALS: BP 142/91
[2021-08-31] MEDS: INSULIN GLARGINE SYRINGE. SQ SCH (21:00)
[2021-08-31] MEDS: TAMSULOSIN 0.4 MG CAP.ER.24H. PO SCH (22:24)
[2021-08-31] MEDS: guaiFENesin/CODEINE 100mg/10mg 5 ML LIQUID PO PRN (22:24)
[2021-08-31] MEDS: traMADol 50 MG TABLET PO PRN ×2 (22:25→22:59)
[2021-08-31 23:40] VITALS: BP 166/76
[2021-09-01] VITALS (7 sets, daily range): BP systolic 101–147; BP diastolic 53–72
[2021-09-01] MEDS: metFORMIN 500 MG TABLET PO SCH ×2 (08:00→16:10)
[2021-09-01] MEDS: INSULIN LISPRO 300 UNITS/3 ML VIAL. SQ SCH ×6 (08:18→16:09)
[2021-09-01] MEDS: ASPIRIN 325 MG TABLET PO SCH (08:19)
[2021-09-01] MEDS: ISOSORBIDE MONONITRATE ER 30 MG TAB.ER.24H PO SCH (08:20)
[2021-09-01] MEDS: MULTIVITAMIN with MINERAL TABLET. PO SCH (08:21)
[2021-09-01] MEDS: PIOGLITAZONE 15 MG TABLET. PO SCH (08:21)
[2021-09-01] MEDS: CHLORTHALIDONE 25 MG TABLET. PO SCH (08:22)
[2021-09-01] MEDS: LISINOPRIL 20 MG TABLET PO SCH (08:23)
[2021-09-01] MEDS: METOPROLOL TART IMMED RELEASE 25 MG TABLET. PO SCH ×2 (08:25→21:22)
[2021-09-01] MEDS: ATORVASTATIN CALCIUM 40 MG TABLET. PO SCH (08:25)
[2021-09-01] MEDS: LINAGLIPTIN 5 MG TABLET PO SCH (08:25)
[2021-09-01] MEDS: LACTOBACILLUS RHAMNOSUS GG 1 CAPSULE. PO SCH ×2 (08:26→21:21)
--- NOTE | 2021-09-01 15:18 | PDOC ---
[employer] PROGRESS NOTE Date of Service DOS: DATE: 09/01/21 TIME: 15:16 Chief Complaint Chief Complaint Weakness, chest pain, hyperglycemia, hypertensive urgency noncompliance and incidental finding of COVID testing positive on his rapid COVID. For now, we have him in respiratory isolation while we are awaiting the PCR test for his COVID. Sliding scale insulin. Serial enzymes, serial EKGs. We are going to resume his home meds, which should drop his pressure and hopefully that will control. If not, we will add an extra antihypertensives. Continue other home meds. DVT prophylaxis. Full Code. Trend labs. P.r.n. codeine cough syrup, empiric Z-SUMMER, empiric Medrol Dosepak, vitamins. Long-acting sliding scale Premeal insulin History of Present Illness History of Present Illness 09/01: Patient reports ongoing chest pain. Troponins not elevated on admission. At this time I am unaware of any cardiology evaluations while inpatient. Continue Imdur and nitrates. Anticipate discharge home with self-care tomorrow. 08/31 Patient evaluated examined at bedside. Dizziness is stable right now. Continue to observe today. Continue nitrates. Possible discharge early this coming week. Consult recommendations reviewed 08/30 Patient evaluated examined at bedside. Said dizziness a little bit improved but definitely still present. Xarelto resumed yesterday but at the same time given patient's insurance status likely will be unable to get as an outpatient. We will see if any options. Otherwise continue current and watch through the weekend. 08/29 Patient evaluated examined at bedside he was up in the chair watching a movie on his tablet. Pressure improved but says he does have ongoing dizziness. Said he was doing okay until steroids were started given stable respiratory status will stop steroids for now. Discussed with cardiology team adding on nitrates today as well. Discussed with bedside RN. 08/28 Patient evaluated examined at bedside. Up in chair reporting pain all over and dizziness still. Increased amlodipine today due to ongoing hypertension. Cardiology added lisinopril 40. Discussed with them and recommendations reviewed. Close monitor blood pressure. 08/27 Patient evaluated examined at bedside. Resting in bed not really complaining of anything to me however did not have much to say. Still quite hypertensive and hyperglycemic. Increase insulin today. Discussed with cardiology team. Continue current otherwise. Plan discussed with bedside RN. Vitals/I&O Vitals/I&O: Vital Signs Date Time Temp Pulse Resp B/P (MAP) Pulse Ox O2 Delivery O2 Flow Rate FiO2 09/01/21 11:00 97.1 67 18 101/53 (69) 97 Room Air 97.1 I & O 08/31/21 08/31/21 09/01/21 15:00 23:00 07:00 Intake Total 900 ml 200 ml 200 ml Output Total 300 ml Balance 600 ml 200 ml 200 ml Physical Exam General: Alert, Oriented X3, Cooperative Heart: Regular rate Lungs: Clear Abdomen: Normal bowel sounds, Soft, No tenderness Extremities: No edema, Normal pulses Skin: No significant lesion Labs Labs: Laboratory Tests Test 08/31/21 16:26 08/31/21 21:13 09/01/21 08:11 09/01/21 11:28 Glucose (Fingerstick) 193 mg/dL (70-99) 121 mg/dL (70-99) 179 mg/dL (70-99) 109 mg/dL (70-99) Comment Review of Relevant I have reviewed the following items lainey (where applicable) has been applied. Justifications for Admission Other Justification MARI GARCIA MD Sep 01, 2021 15:18
[2021-09-01] MEDS: RIVAROXABAN 10 MG TABLET. PO SCH (16:11)
--- NOTE | 2021-09-01 18:36 | PDOC ---
PROGRESS NOTES Date of Service DATE: 09/01/21 TIME: 18:35 Subjective Subjective Patient seen and evaluated. Objective Objective Vital Signs Date Time Temp Pulse Resp B/P (MAP) Pulse Ox O2 Delivery O2 Flow Rate FiO2 09/01/21 15:00 97.9 74 19 130/62 (84) 99 Room Air 97.9 Intake and Output 09/01/21 07:00 Intake Total 1300 ml Output Total 300 ml Balance 1000 ml Intake Oral 1300 ml Output Urine Total 300 ml Physical Exam Physical Exam Visual examination. Assessment Assessment No acuteChest pain; pain has largely resolved show episodes of mild discomfort. AMI ruled out. Most probably secondary to #2. Stress test 11/27 at [facility] that was reportedly normal. Outpatient follow-up. Hypertensive urgency; remains labile but improved. Imdur added. Chronic diastolic CHF; recent echo with LVEF 60%. no WMA. clinically compensated Hyperlipidemia; statin Diabetes, II. as per IM PAFIB; presently SR. previously on Xarelto for stroke prophylaxis, but no longer takes. On ASA therapy. Sinus rhythm overnight. Anxiety, depression, homelessness. resides at [facility] Rapid COVID + Dizziness. Continues to improve. Comment Review of Relevant I have reviewed the following items lainey (where applicable) has been applied. Labs Laboratory Tests Test 08/30/21 20:50 08/31/21 04:00 08/31/21 07:51 08/31/21 11:02 Glucose (Fingerstick) 155 mg/dL (70-99) 208 mg/dL (70-99) 189 mg/dL (70-99) White Blood Count 6.6 x10^3/uL (4.0-11.0) Red Blood Count 3.10 x10^6/uL (4.30-5.70) Hemoglobin 10.1 g/dL (13.0-17.5) Hematocrit 27.4 % (39.0-53.0) Mean Corpuscular Volume 88 fL (79-100) Mean Corpuscular Hemoglobin 33 pg (25-35) Mean Corpuscular Hemoglobin Concent 37 g/dL (31-37) Red Cell Distribution Width 14.0 % (11.5-14.5) Platelet Count 230 x10^3/uL (140-400) Neutrophils (%) (Auto) 74 % (31-73) Lymphocytes (%) (Auto) 15 % (24-48) Monocytes (%) (Auto) 10 % (0-9) Eosinophils (%) (Auto) 2 % (0-3) Basophils (%) (Auto) 1 % (0-3) Neutrophils # (Auto) 4.9 x10^3/uL (1.8-7.7) Lymphocytes # (Auto) 1.0 x10^3/uL (1.0-4.8) Monocytes # (Auto) 0.6 x10^3/uL (0.0-1.1) Eosinophils # (Auto) 0.1 x10^3/uL (0.0-0.7) Basophils # (Auto) 0.0 x10^3/uL (0.0-0.2) Sodium Level 136 mmol/L (136-145) Potassium Level 4.6 mmol/L (3.5-5.1) Chloride Level 102 mmol/L (98-107) Carbon Dioxide Level 27 mmol/L (21-32) Anion Gap 7 (6-14) Blood Urea Nitrogen 39 mg/dL (8-26) Creatinine 1.1 mg/dL (0.7-1.3) Estimated GFR (Cockcroft-Gault) 69.2 BUN/Creatinine Ratio 35 (6-20) Glucose Level 180 mg/dL (70-99) Calcium Level 8.5 mg/dL (8.5-10.1) Total Bilirubin 0.7 mg/dL (0.2-1.0) Aspartate Amino Transf (AST/SGOT) 11 U/L (15-37) Alanine Aminotransferase (ALT/SGPT) 13 U/L (16-63) Alkaline Phosphatase 76 U/L (46-116) Total Protein 6.1 g/dL (6.4-8.2) Albumin 3.0 g/dL (3.4-5.0) Albumin/Globulin Ratio 1.0 (1.0-1.7) Test 08/31/21 16:26 08/31/21 21:13 09/01/21 08:11 09/01/21 11:28 Glucose (Fingerstick) 193 mg/dL (70-99) 121 mg/dL (70-99) 179 mg/dL (70-99) 109 mg/dL (70-99) Test 09/01/21 15:55 Glucose (Fingerstick) 201 mg/dL (70-99) Laboratory Tests Test 08/31/21 21:13 09/01/21 08:11 09/01/21 11:28 09/01/21 15:55 Glucose (Fingerstick) 121 mg/dL (70-99) 179 mg/dL (70-99) 109 mg/dL (70-99) 201 mg/dL (70-99) Medications Current Medications Aspirin (Aspirin Chewable) 324 mg 1X ONCE PO Last administered on 08/26/21at 10 :11; Start 08/26/21 at 10:00; Stop 08/26/21 at 10:01; Status DC Hydralazine HCl (Apresoline Inj) 10 mg 1X ONCE IVP Last administered on 08/26/21at 10:11; Start 08/26/21 at 10:00; Stop 08/26/21 at 10:01; Status DC Sodium Chloride 1,000 ml @ 999 mls/hr 1X ONCE IV Last administered on 08/26/21at 10:11; Start 08/26/21 at 10:00; Stop 08/26/21 at 11:00; Status DC Insulin Human Lispro (HumaLOG) 20 units 1X ONCE SQ Last administered on 08/26/21at 14:34; Start 08/26/21 at 14:30; Stop 08/26/21 at 14:41; Status DC Insulin Human Lispro (HumaLOG) 0-5 UNITS TIDWMEALS SQ Last administered on 09/01/21at 16:08; Start 08/26/21 at 17:00 Dextrose (Dextrose 50%-Water Syringe) 12.5 gm PRN Q15MIN PRN IV SEE COMMENTS; Start 08/26/21 at 14:15 Dextrose (Iv Dextrose 5%) 250 ml PRN Q15MIN PRN IV SEE COMMENTS; Start 08/26/21 at 14:15 Aspirin (Rico Aspirin) 325 mg DAILYWBKFT PO Last administered on 09/01/21at 08:19; Start 08/27/21 at 08:00 Atorvastatin Calcium (Lipitor) 40 mg DAILY PO Last administered on 09/01/21at 08:25; Start 08/27/21 at 09:00 Chlorthalidone (Thalitone) 25 mg DAILY PO Last administered on 09/01/21at 08:22; Start 08/27/21 at 09:00 Furosemide (Lasix) 40 mg PRN DAILY PRN PO SHORTNESS OF BREATH; Start 08/26/21 at 14:30 Linagliptin (Tradjenta) 5 mg DAILY PO Last administered on 09/01/21at 08:25; Start 08/27/21 at 09:00 Lisinopril (Prinivil) 40 mg BID PO Last administered on 08/28/21at 08:16; Start 08/26/21 at 21:00; Stop 08/28/21 at 14:51; Status DC Metoprolol Tartrate (Lopressor) 25 mg BID PO Last administered on 09/01/21 08:25; Start 08/26/21 at 21:00 Pioglitazone HCl (Actos) 15 mg DAILY PO Last administered on 09/01/21at 08:21; Start 08/27/21 at 09:00 Tamsulosin HCl (Flomax) 0.4 mg QHS PO Last administered on 08/31/21 22:24; Start 08/26/21 at 21:00 Tramadol HCl (Ultram) 50 mg PRN Q6HRS PRN PO PAIN Last administered on 08/31/21at 22:59; Start 08/26/21 at 14:30 Metformin HCl (Glucophage) 1,000 mg BIDWMEALS PO Last administered on 09/01/21at 16:10; Start 08/26/21 at 17:00 Azithromycin (Zithromax) 250 mg DAILY PO Last administered on 08/29/21at 08:07; Start 08/26/21 at 15:00; Stop 08/29/21 at 09:01; Status DC Methylprednisolone (Medrol) 8 mg BID PO Last administered on 08/26/21at 21:21; Start 08/26/21 at 15:00; Stop 08/26/21 at 21:01; Status DC Methylprednisolone (Medrol) 4 mg BIDPCLD PO Last administered on 08/26/21at 17:30; Start 08/26/21 at 16:30; Stop 08/26/21 at 17:31; Status DC Methylprednisolone (Medrol) 4 mg TIDPC PO Last administered on 08/27/21at 16:49; Start 08/27/21 at 08:30; Stop 08/27/21 at 17:31; Status DC Methylprednisolone (Medrol) 8 mg QHS PO Last administered on 08/27/21at 21:05; Start 08/27/21 at 21:00; Stop 08/27/21 at 21:01; Status DC Methylprednisolone (Medrol) 4 mg QIDAFTMEAL PO Last administered on 08/28/21at 21:44; Start 08/28/21 at 09:00; Stop 08/28/21 at 21:01; Status DC Methylprednisolone (Medrol) 4 mg TID PO Last administered on 08/29/21at 08:07; Start 08/29/21 at 09:00; Stop 08/29/21 at 12:12; Status DC Methylprednisolone (Medrol) 4 mg BID PO ; Start 08/30/21 at 09:00; Stop 08/29/21 at 12:12; Status DC Methylprednisolone (Medrol) 4 mg DAILY PO ; Start 08/31/21 at 09:00; Stop 08/29/21 at 12:12; Status DC Guaifenesin/ Codeine Phosphate (Robitussin Ac) 5 ml PRN Q6HRS PRN PO COUGH Last administered on 08/31/21at 22:24; Start 08/26/21 at 14:30 Aspirin (Aspirin Chewable) 81 mg DAILYWBKFT PO ; Start 08/27/21 at 08:00; Status UNV Multivitamins (Thera M Plus) 1 tab DAILY PO Last administered on 09/01/21at 08:21; Start 08/27/21 at 09:00 Hydralazine HCl (Apresoline Inj) 10 mg PRN Q4HRS PRN IVP ELEVATED BP, SEE COMMENTS Last administered on 08/30/21at 17:44; Start 08/26/21 at 15:45 Hydralazine HCl (Apresoline) 100 mg BID PO Last administered on 09/01/21at 08:22; Start 08/26/21 at 21:00 Insulin Glargine (Lantus Syringe) 20 unit QHS SQ Last administered on 08/27/21at 21:09; Start 08/27/21 at 21:00; Stop 08/28/21 at 18:56; Status DC Insulin Human Lispro (HumaLOG) 10 units TIDWMEALS SQ Last administered on 08/29/21at 08:14; Start 08/27/21 at 17:00; Stop 08/29/21 at 08:42; Status DC Insulin Human Lispro (HumaLOG) 20 units ONCE ONCE SQ Last administered on 08/27/21at 13:05; Start 08/27/21 at 13:00; Stop 08/27/21 at 13:01; Status DC Amlodipine Besylate (Norvasc) 5 mg DAILY PO Last administered on 08/28/21at 08:16; Start 08/27/21 at 15:15; Stop 08/28/21 at 08:56; Status DC Amlodipine Besylate (Norvasc) 10 mg DAILY PO Last administered on 09/01/21 08:21; Start 08/28/21 at 09:00 Lactobacillus Rhamnosus (Culturelle) 1 cap BID PO Last administered on 09/01/21 08:26; Start 08/28/21 at 21:00 Lisinopril (Prinivil) 40 mg DAILY PO Last administered on 09/01/21at 08:23; Start 08/29/21 at 09:00 Insulin Glargine (Lantus Syringe) 30 unit QHS SQ Last administered on 08/30/21at 21:32; Start 08/28/21 at 21:00 Insulin Human Lispro (HumaLOG) 15 units TIDWMEALS SQ Last administered on 09/01/21 16:09; Start 08/29/21 at 12:00 Rivaroxaban (Xarelto) 2.5 mg BID PO ; Start 08/29/21 at 09:00; Stop 08/29/21 at 12:26; Status DC Isosorbide Mononitrate (Imdur) 30 mg DAILY PO Last administered on 09/01/21at 08:20; Start 08/29/21 at 13:00 Rivaroxaban (Xarelto) 20 mg DAILYWSUP PO Last administered on 09/01/21at 16:11; Start 08/29/21 at 17:00 Active Scripts Active Metformin Hcl 1,000 Mg Tablet 1,000 Mg PO BIDWMEALS 30 Days Lasix (Furosemide) 40 Mg Tablet 40 Mg PO DAILY PRN 30 Days Chlorthalidone (Chlorthalidone) 25 Mg Tablet 25 Mg PO DAILY 30 Days Lisinopril 40 Mg Tablet 1 Tab PO BID Atorvastatin Calcium 40 Mg Tablet 1 Tab PO DAILY Aspirin 325 Mg Tablet 325 Mg PO DAILYWBKFT 30 Days Tradjenta (Linagliptin) 5 Mg Tablet 5 Mg PO DAILY 30 Days Metoprolol Tartrate 25 Mg Tablet 25 Mg PO BID 30 Days Flomax (Tamsulosin Hcl) 0.4 Mg Cap.er.24h 0.4 Mg PO QHS 30 Days Tramadol Hcl 50 Mg Tablet 50 Mg PO Q6HRS PRN Reported Actos (Pioglitazone Hcl) 15 Mg Tablet 1 Tab PO DAILY 30 Days Vitals/I & O Vital Sign - Last 24 Hours 08/31/21 08/31/21 08/31/21 08/31/21 19:50 20:00 21:00 22:24 Temp 100.2 100.2 Pulse 104 104 104 Resp 22 B/P (MAP) 142/91 (108) 142/91 142/91 Pulse Ox 98 O2 Delivery Room Air Room Air 08/31/21 08/31/21 08/31/21 09/01/21 22:59 23:03 23:40 02:47 Temp 99.3 99.1 99.3 99.1 Pulse 92 88 Resp 18 16 B/P (MAP) 166/76 (106) 143/65 (91) Pulse Ox 98 98 96 96 O2 Delivery Room Air Room Air Room Air Room Air 09/01/21 09/01/21 09/01/21 09/01/21 07:00 08:00 08:20 08:21 Pulse 73 71 71 Resp 16 B/P (MAP) 147/72 (97) 147/72 147/72 Pulse Ox 96 O2 Delivery Room Air Room Air 09/01/21 09/01/21 09/01/21 09/01/21 08:22 08:23 08:25 11:00 Temp 97.1 97.1 Pulse 71 71 71 67 Resp 18 B/P (MAP) 147/72 147/72 147/72 101/53 (69) Pulse Ox 97 O2 Delivery Room Air 09/01/21 15:00 Temp 97.9 97.9 Pulse 74 Resp 19 B/P (MAP) 130/62 (84) Pulse Ox 99 O2 Delivery Room Air Intake and Output 08/31/21 08/31/21 09/01/21 15:00 23:00 07:00 Intake Total 900 ml 200 ml 200 ml Output Total 300 ml Balance 600 ml 200 ml 200 ml Justifications for Admission Other Justification VICTOR MANUEL ARGUETA MD Sep 01, 2021 18:36
[2021-09-01] MEDS: TAMSULOSIN 0.4 MG CAP.ER.24H. PO SCH (21:21)
[2021-09-01] MEDS: INSULIN GLARGINE SYRINGE. SQ SCH (21:23)
[2021-09-02 02:37] VITALS: BP 180/84
[2021-09-02 03:52] VITALS: BP 153/73
[2021-09-02 06:22] LABS: HEMATOCRIT 24.7 % (39.0-53.0); HEMOGLOBIN 8.8 g/dL (13.0-17.5); RED BLOOD COUNT 2.82 x10^6/uL (4.30-5.70); RED CELL DISTRIBUTION WIDTH 14.2 % (11.5-14.5); WHITE BLOOD COUNT 4.4 x10^3/uL (4.0-11.0)
[2021-09-02 06:34] LABS: CALCIUM 7.9 mg/dL (8.5-10.1); CREATININE 1.2 mg/dL (0.7-1.3); GFR 62.6; POTASSIUM 4.1 mmol/L (3.5-5.1)
[2021-09-02 07:00] VITALS: BP 165/77
[2021-09-02] MEDS: INSULIN LISPRO 300 UNITS/3 ML VIAL. SQ SCH ×4 (08:50→12:00)
[2021-09-02] MEDS: LACTOBACILLUS RHAMNOSUS GG 1 CAPSULE. PO SCH (08:52)
[2021-09-02] MEDS: ASPIRIN 325 MG TABLET PO SCH (08:54)
[2021-09-02] MEDS: ATORVASTATIN CALCIUM 40 MG TABLET. PO SCH (08:54)
[2021-09-02] MEDS: METOPROLOL TART IMMED RELEASE 25 MG TABLET. PO SCH (08:54)
[2021-09-02] MEDS: MULTIVITAMIN with MINERAL TABLET. PO SCH (08:55)
[2021-09-02] MEDS: metFORMIN 500 MG TABLET PO SCH (08:55)
[2021-09-02] MEDS: LINAGLIPTIN 5 MG TABLET PO SCH (08:55)
[2021-09-02] MEDS: LISINOPRIL 20 MG TABLET PO SCH (08:56)
[2021-09-02] MEDS: ISOSORBIDE MONONITRATE ER 30 MG TAB.ER.24H PO SCH (08:56)
[2021-09-02] MEDS: PIOGLITAZONE 15 MG TABLET. PO SCH (08:57)
[2021-09-02] MEDS: CHLORTHALIDONE 25 MG TABLET. PO SCH (08:57)
--- NOTE | 2021-09-02 10:19 | PDOC ---
[employer] PROGRESS NOTE Date of Service DOS: DATE: 09/02/21 TIME: 10:16 Chief Complaint Chief Complaint Weakness, chest pain, hyperglycemia, hypertensive urgency noncompliance and incidental finding of COVID testing positive on his rapid COVID. For now, we have him in respiratory isolation while we are awaiting the PCR test for his COVID. Sliding scale insulin. Serial enzymes, serial EKGs. We are going to resume his home meds, which should drop his pressure and hopefully that will control. If not, we will add an extra antihypertensives. Continue other home meds. DVT prophylaxis. Full Code. Trend labs. P.r.n. codeine cough syrup, empiric Z-SUMMER, empiric Medrol Dosepak, vitamins. Long-acting sliding scale Premeal insulin History of Present Illness History of Present Illness 09/02: Afebrile. Chest pain improved. AMI ruled out, troponins negative. He is COVID-positive. I do not believe cardiology anticipates any further work-up inpatient. Will discharge on aspirin, statin, beta-estrella, Xarelto, and Imdur. He will follow-up with cardiology as outpatient basis. Greater than 30 minutes spent managing the discharge of this patient. 09/01: Patient reports ongoing chest pain. Troponins not elevated on admission. At this time I am unaware of any cardiology evaluations while inpatient. Continue Imdur and nitrates. Anticipate discharge home with self-care tomorrow. 08/31 Patient evaluated examined at bedside. Dizziness is stable right now. Continue to observe today. Continue nitrates. Possible discharge early this coming week. Consult recommendations reviewed 08/30 Patient evaluated examined at bedside. Said dizziness a little bit improved but definitely still present. Xarelto resumed yesterday but at the same time given patient's insurance status likely will be unable to get as an outpatient. We will see if any options. Otherwise continue current and watch through the weekend. 08/29 Patient evaluated examined at bedside he was up in the chair watching a movie on his tablet. Pressure improved but says he does have ongoing dizziness. Said he was doing okay until steroids were started given stable respiratory status will stop steroids for now. Discussed with cardiology team adding on nitrates today as well. Discussed with bedside RN. 08/28 Patient evaluated examined at bedside. Up in chair reporting pain all over and dizziness still. Increased amlodipine today due to ongoing hypertension. Cardiology added lisinopril 40. Discussed with them and recommendations reviewed. Close monitor blood pressure. 08/27 Patient evaluated examined at bedside. Resting in bed not really complaining of anything to me however did not have much to say. Still quite hypertensive and hyperglycemic. Increase insulin today. Discussed with cardiology team. Continue current otherwise. Plan discussed with bedside RN. Vitals/I&O Vitals/I&O: Vital Signs Date Time Temp Pulse Resp B/P (MAP) Pulse Ox O2 Delivery O2 Flow Rate FiO2 09/02/21 08:56 72 165/77 09/02/21 07:00 97.9 17 98 Room Air 97.9 I & O 09/01/21 09/01/21 09/02/21 15:00 23:00 07:00 Intake Total 620 ml 600 ml 0 ml Output Total 400 ml Balance 620 ml 200 ml 0 ml Physical Exam General: Alert, Oriented X3, Cooperative Heart: Regular rate Lungs: Clear Abdomen: Normal bowel sounds, Soft, No tenderness Extremities: No edema, Normal pulses Skin: No significant lesion Labs Labs: Laboratory Tests Test 09/01/21 11:28 09/01/21 15:55 09/01/21 20:44 09/02/21 05:40 Glucose (Fingerstick) 109 mg/dL (70-99) 201 mg/dL (70-99) 130 mg/dL (70-99) White Blood Count 4.4 x10^3/uL (4.0-11.0) Red Blood Count 2.82 x10^6/uL (4.30-5.70) Hemoglobin 8.8 g/dL (13.0-17.5) Hematocrit 24.7 % (39.0-53.0) Mean Corpuscular Volume 88 fL (79-100) Mean Corpuscular Hemoglobin 31 pg (25-35) Mean Corpuscular Hemoglobin Concent 36 g/dL (31-37) Red Cell Distribution Width 14.2 % (11.5-14.5) Platelet Count 225 x10^3/uL (140-400) Sodium Level 135 mmol/L (136-145) Potassium Level 4.1 mmol/L (3.5-5.1) Chloride Level 102 mmol/L (98-107) Carbon Dioxide Level 26 mmol/L (21-32) Anion Gap 7 (6-14) Blood Urea Nitrogen 38 mg/dL (8-26) Creatinine 1.2 mg/dL (0.7-1.3) Estimated GFR (Cockcroft-Gault) 62.6 Glucose Level 157 mg/dL (70-99) Calcium Level 7.9 mg/dL (8.5-10.1) Test 09/02/21 07:38 Glucose (Fingerstick) 165 mg/dL (70-99) Comment Review of Relevant I have reviewed the following items lainey (where applicable) has been applied. Justifications for Admission Other Justification MARI GARCIA MD Sep 02, 2021 10:19
--- NOTE | 2021-09-02 10:26 | PDOC3 ---
Discharge Summary Visit Information Date of Admission: Aug 26, 2021 Date of Discharge: Sep 02, 2021 Brief Hospital Course Allergies Allergies Coded Allergies Type Severity Reaction Last Updated Verified No Known Drug Allergies 08/23/21 No Vital Signs Vital Signs Date Time Temp Pulse Resp B/P (MAP) Pulse Ox O2 Delivery O2 Flow Rate FiO2 09/02/21 08:56 72 165/77 09/02/21 07:00 97.9 17 98 Room Air 97.9 Lab Results Laboratory Tests Test 08/31/21 11:02 08/31/21 16:26 08/31/21 21:13 09/01/21 08:11 Glucose (Fingerstick) 189 mg/dL (70-99) 193 mg/dL (70-99) 121 mg/dL (70-99) 179 mg/dL (70-99) Test 09/01/21 11:28 09/01/21 15:55 09/01/21 20:44 09/02/21 05:40 Glucose (Fingerstick) 109 mg/dL (70-99) 201 mg/dL (70-99) 130 mg/dL (70-99) White Blood Count 4.4 x10^3/uL (4.0-11.0) Red Blood Count 2.82 x10^6/uL (4.30-5.70) Hemoglobin 8.8 g/dL (13.0-17.5) Hematocrit 24.7 % (39.0-53.0) Mean Corpuscular Volume 88 fL (79-100) Mean Corpuscular Hemoglobin 31 pg (25-35) Mean Corpuscular Hemoglobin Concent 36 g/dL (31-37) Red Cell Distribution Width 14.2 % (11.5-14.5) Platelet Count 225 x10^3/uL (140-400) Sodium Level 135 mmol/L (136-145) Potassium Level 4.1 mmol/L (3.5-5.1) Chloride Level 102 mmol/L (98-107) Carbon Dioxide Level 26 mmol/L (21-32) Anion Gap 7 (6-14) Blood Urea Nitrogen 38 mg/dL (8-26) Creatinine 1.2 mg/dL (0.7-1.3) Estimated GFR (Cockcroft-Gault) 62.6 Glucose Level 157 mg/dL (70-99) Calcium Level 7.9 mg/dL (8.5-10.1) Test 09/02/21 07:38 Glucose (Fingerstick) 165 mg/dL (70-99) Laboratory Tests Test 09/01/21 11:28 09/01/21 15:55 09/01/21 20:44 09/02/21 05:40 Glucose (Fingerstick) 109 mg/dL (70-99) 201 mg/dL (70-99) 130 mg/dL (70-99) White Blood Count 4.4 x10^3/uL (4.0-11.0) Red Blood Count 2.82 x10^6/uL (4.30-5.70) Hemoglobin 8.8 g/dL (13.0-17.5) Hematocrit 24.7 % (39.0-53.0) Mean Corpuscular Volume 88 fL (79-100) Mean Corpuscular Hemoglobin 31 pg (25-35) Mean Corpuscular Hemoglobin Concent 36 g/dL (31-37) Red Cell Distribution Width 14.2 % (11.5-14.5) Platelet Count 225 x10^3/uL (140-400) Sodium Level 135 mmol/L (136-145) Potassium Level 4.1 mmol/L (3.5-5.1) Chloride Level 102 mmol/L (98-107) Carbon Dioxide Level 26 mmol/L (21-32) Anion Gap 7 (6-14) Blood Urea Nitrogen 38 mg/dL (8-26) Creatinine 1.2 mg/dL (0.7-1.3) Estimated GFR (Cockcroft-Gault) 62.6 Glucose Level 157 mg/dL (70-99) Calcium Level 7.9 mg/dL (8.5-10.1) Test 09/02/21 07:38 Glucose (Fingerstick) 165 mg/dL (70-99) Brief Hospital Course Mr. Euceda is a 56 old male who presented with chest pain, hypertensive urgency. Consult placed to cardiology. His troponins were trended and esse ntially negative. He remained inpatient for blood pressure control. He did test positive for COVID-19 while inpatient, and it was believed his symptoms were chest pain or likely secondary to COVID-19 diagnosis. He was stable for discharge home with self-care. Recommended self quarantine until 09/05/2021, after which time he can follow-up with cardiology as outpatient. Discharge Information Condition at Discharge: Stable Disposition/Orders: D/C to Home Scheduled Aspirin (Aspirin) 325 Mg Tablet, 325 MG PO DAILYWBKFT for stroke prophylaxisx for 30 Days, #30 Ref 2 Prescribed by: MARI GARCIA MD on 08/23/211203 Last Taken: Unknown Dose on 08/26/21 Last Action: Continued on 08/26/211421 by SHIMON WEINER Atorvastatin Calcium (Atorvastatin Calcium) 40 Mg Tablet, 1 TAB PO DAILY for Hx TIA, #30 Ref 5 Prescribed by: MARI GARCIA MD on 08/23/211203 Last Taken: Unknown Dose on 08/25/21 Last Action: Continued on 08/26/211421 by SHIMON WEINER Chlorthalidone (Chlorthalidone ) 25 Mg Tablet, 25 MG PO DAILY for DIURETIC for 30 Days, #30 Ref 2 Prescribed by: MARI GARCIA MD on 08/23/211203 Last Taken: Unknown Dose on 08/26/21 Last Action: Continued on 08/26/211421 by SHIMON WEINER Linagliptin (Tradjenta) 5 Mg Tablet, 5 MG PO DAILY for dm2 for 30 Days, #30 Prescribed by: JIMBO CAMPOS MD on 08/07/21 104 Last Taken: Unknown Dose on 08/26/21 Last Action: Continued on 08/26/211421 by SHIMON WEINER Lisinopril (Lisinopril) 40 Mg Tablet, 1 TAB PO BID for HTN, #30 Ref 5 Prescribed by: MARI GARCIA MD on 08/23/211203 Last Action: Continued on 08/26/211421 by SHIMON WEINER Metformin Hcl (Metformin Hcl) 1,000 Mg Tablet, 1,000 MG PO BIDWMEALS for DM2 for 30 Days, #60 Ref 2 Prescribed by: MARI GARCIA MD on 08/23/211203 Last Taken: Unknown Dose on 08/26/21 Last Action: Converted on 08/26/211421 by SHIMON WEINER Metoprolol Tartrate (Metoprolol Tartrate) 25 Mg Tablet, 25 MG PO BID for htn for 30 Days, #60 Prescribed by: JIMBO CAMPOS MD on 08/07/21 1043 Last Taken: Unknown Dose on 08/26/21 Last Action: Continued on 08/26/211421 by SHIMON WEINER Pioglitazone Hcl (Actos) 15 Mg Tablet, 1 TAB PO DAILY for diabetes for 30 Days, #30 Ref 0 (Reported) Entered as Reported by: OLIVIA CABEZAS on 08/02/21 194 Last Taken: Unknown Dose on 08/26/21 Last Action: Continued on 08/26/211421 by SHIMON WEINER Tamsulosin Hcl (Flomax) 0.4 Mg Cap.er.24h, 0.4 MG PO QHS for bph for 30 Days, #30 Prescribed by: JIMBO CAMPOS MD on 08/07/21 1043 Last Taken: Unknown Dose on 08/25/21 Last Action: Continued on 08/26/211421 by SHIMON WEINER Scheduled PRN Furosemide (Lasix) 40 Mg Tablet, 40 MG PO DAILY PRN for SHORTNESS OF BREATH for 30 Days, #30 Ref 2 Prescribed by: MARI GARCIA MD on 08/23/21 1204 Last Taken: Unknown Dose on 08/26/21 Last Action: Continued on 08/26/211421 by SHIMON WEINER Tramadol Hcl (Tramadol Hcl) 50 Mg Tablet, 50 MG PO Q6HRS PRN for PAIN, #12 Prescribed by: KATI PATEL on 07/16/21 1233 Last Taken: UNKNOWN on Unknown Date & Time Last Action: Continued on 08/26/211421 by SHIMON WEINER Justicifation of Admission Dx: Justifications for Admission: Justification of Admission Dx: N/A MARI GARCIA MD Sep 02, 2021 10:26
[2021-09-02] MEDS ORDERED: RIVA10TA PO (10:37)
[2021-09-02] MEDS ORDERED: HYDR-2869 PO (10:37)
[2021-09-02] MEDS ORDERED: ASPI-630 PO (10:37)
[2021-09-02] MEDS ORDERED: AMLO-187 PO (10:37)
[2021-09-02] MEDS ORDERED: ISOS30TA68 PO (10:37)
[2021-09-02 11:00] VITALS: BP 131/77
--- NOTE | 2021-09-02 12:52 | NUR ---
SS following up with discharge planning. SS reviewed pt chart and discussed with pt RN. Pt is currently on room air. COVID19 positive. Pt is from [facility]. Discharge order on the chart for home with self care. Per RN, pt has transportation back to [facility].
--- NOTE | 2021-09-02 15:50 | PDOC ---
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 09/02/21 1550: CARDIO Progress Notes Date and Time Date of Service 09/02/21 Time of Evaluation 1115 Subjective Subjective: No Chest Pain, No shortness of breath, No Palpitations Vitals Vitals Vital Signs Date Time Temp Pulse Resp B/P (MAP) Pulse Ox O2 Delivery O2 Flow Rate FiO2 09/02/21 11:00 96.1 71 17 131/77 (95) 78 Room Air 96.1 Weight Weight [ ] Input and Output Intake and Output Intake and Output 09/02/21 07:00 Intake Total 1220 ml Output Total 400 ml Balance 820 ml Intake Oral 1220 ml Output Urine Total 400 ml Laboratory Labs Laboratory Tests Test 09/01/21 15:55 09/01/21 20:44 09/02/21 05:40 09/02/21 07:38 Glucose (Fingerstick) 201 mg/dL (70-99) 130 mg/dL (70-99) 165 mg/dL (70-99) White Blood Count 4.4 x10^3/uL (4.0-11.0) Red Blood Count 2.82 x10^6/uL (4.30-5.70) Hemoglobin 8.8 g/dL (13.0-17.5) Hematocrit 24.7 % (39.0-53.0) Mean Corpuscular Volume 88 fL (79-100) Mean Corpuscular Hemoglobin 31 pg (25-35) Mean Corpuscular Hemoglobin Concent 36 g/dL (31-37) Red Cell Distribution Width 14.2 % (11.5-14.5) Platelet Count 225 x10^3/uL (140-400) Sodium Level 135 mmol/L (136-145) Potassium Level 4.1 mmol/L (3.5-5.1) Chloride Level 102 mmol/L (98-107) Carbon Dioxide Level 26 mmol/L (21-32) Anion Gap 7 (6-14) Blood Urea Nitrogen 38 mg/dL (8-26) Creatinine 1.2 mg/dL (0.7-1.3) Estimated GFR (Cockcroft-Gault) 62.6 Glucose Level 157 mg/dL (70-99) Calcium Level 7.9 mg/dL (8.5-10.1) Test 09/02/21 11:48 Glucose (Fingerstick) 76 mg/dL (70-99) Physical Exam HEENT: Neck Supple W Full Motion Chest: Symmetric LUNGS: Clear to Auscultation Heart: RRR (SR) Abdomen: Soft N/T Extremities: No Edema Neurology: alert, oriented, follow commands, other (flat affect ) Assessment Assessment 1. Chest pain; AMI ruled out. Most probably secondary to #2. Stress test 11/27 at [facility] that was reportedly normal 2. Hypertensive urgency; remains labile 3. Chronic diastolic CHF; recent echo with LVEF 60%. no WMA. clinically compensated 4. Hyperlipidemia; statin 5. Diabetes, II. uncontrolled. as per IM 6. PAFIB; presently SR. tele noted with very brief burst of PAFIB 7. Anxiety, depression, homelessness. resides at [facility] 8. Rapid COVID + 9. Dizziness; occurs upon standpoint Recommendations ASA, statin Continue current antiHTN therapy BB for rate control Xarelto for stroke prophylaxis Outpatient ischemic evaluation Supportive care Justicifation of Admission Dx: Justifications for Admission: Justification of Admission Dx: N/A VICTOR MANUEL ARGUETA MD 09/02/21 2006: CARDIO Progress Notes Assessment Assessment Patient seen and evaluated. He continues to feel better and is more active. I agree with our nurse practitioners assessment and plan. Chest pain; AMI ruled out. Most probably secondary to #2. Stress test 11/27 at [facility] that was reportedly normal. Outpatient follow-up. Hypertensive urgency; improved. Continue present treatment. Chronic diastolic CHF; recent echo with LVEF 60%. no WMA. clinically compensated Hyperlipidemia; statin Diabetes, II. uncontrolled. as per IM PAFIB; presently SR. tele noted with very brief burst of PAFIB. Rate control and Xarelto. Outpatient follow-up. Anxiety, depression, homelessness. resides at [facility] Rapid COVID + Dizziness; occurs upon standpoint ALIN JOINER APRN Sep 02, 2021 15:50 VICTOR MANUEL ARGUETA MD Sep 02, 2021 20:06
== END 2021-09-02 14:15 | disposition home or self-care (01) | DRG 178 ==
LOC: ER 09:37 → 6 SOUTH 11:48
PROVIDERS: ADMIT Internal Medicine; ATTEND Internal Medicine
DX: U07.1 COVID-19 (principal); I13.0 Hypertensive heart and chronic kidney disease with heart failure and stage 1 through stage 4 chronic kidney disease, or unspecified chronic kidney disease; I50.32 Chronic diastolic (congestive) heart failure; E11.22 Type 2 diabetes mellitus with diabetic chronic kidney disease; E11.40 Type 2 diabetes mellitus with diabetic neuropathy, unspecified; E11.65 Type 2 diabetes mellitus with hyperglycemia; E78.5 Hyperlipidemia, unspecified; F32.A Depression, unspecified; F41.9 Anxiety disorder, unspecified; I16.0 Hypertensive urgency; I48.0 Paroxysmal atrial fibrillation; N18.9 Chronic kidney disease, unspecified; N40.0 Benign prostatic hyperplasia without lower urinary tract symptoms; Z59.00 Homelessness unspecified; Z79.84 Long term (current) use of oral hypoglycemic drugs; Z79.899 Other long term (current) drug therapy; Z82.49 Family history of ischemic heart disease and other diseases of the circulatory system; Z83.3 Family history of diabetes mellitus; Z86.73 Personal history of transient ischemic attack (TIA), and cerebral infarction without residual deficits; Z91.14 Patient's other noncompliance with medication regimen; Z91.19 Patient's noncompliance with other medical treatment and regimen; G62.9 Polyneuropathy, unspecified; M19.90 Unspecified osteoarthritis, unspecified site; Z90.49 Acquired absence of other specified parts of digestive tract
CPT/HCPCS: 36415; 36600; 71045; 80048; 80053; 82805; 82962; 83880; 84484; 85025; 85027; 85379; 85610; 85730; 87428; 93005; 96361; 96374; J0360; J1815; J7030; J7509; 99285-25; G0378